=== PATIENT | male | born 1940 | race Asian ===

== ENCOUNTER 2019-10-18 15:53 | Inpatient (IN) | payer OTHER, MEDICAID ==
[~2019-10-18] VITALS: Ht 167.6 cm; Wt 80.3 kg
--- NOTE | 2019-10-18 15:55 | NUR ---
Patient to ER bed 2 to gown for evaluation. Side rails up.
--- NOTE | 2019-10-18 15:57 | NUR ---
Patient presented to ER C/O abnormal labs. patient BIB BLS from [facility] [place] for elevated BUN & Creat. Patient A&Ox2, afebrile, bed bound, skin pink & warm. Gtube to abdomen. pain 3/10, denies N/V/D.
[2019-10-18 15:59] VITALS: BP_SYST 119
--- NOTE | 2019-10-18 16:10 | NUR ---
JUAN Araiza at bedside examining patient.
[2019-10-18] MEDS ORDERED: ASPI-1077 GT (16:22)
[2019-10-18] MEDS ORDERED: ATOR10TA68 GT (16:23)
[2019-10-18] MEDS ORDERED: CAT.1 GT (16:25)
[2019-10-18] MEDS ORDERED: FER300L GT (16:36)
[2019-10-18] MEDS ORDERED: DILT90CA PO (16:36)
[2019-10-18 17:01] LABS: BASOPHILS # (AUTO) 0.1 K/uL (0.0-0.2); BASOPHILS % (AUTO) 0.7 % (0.0-2.0); EOSINOPHILS # (AUTO) 0.9 K/uL (0.0-0.4); EOSINOPHILS % (AUTO) 8.7 % (0.0-4.0); HEMATOCRIT 30.2 % (36-54); HEMOGLOBIN 10.3 g/dL (14.0-18.0); LYMPHOCYTES # (AUTO) 1.3 K/uL (1.0-5.5); LYMPHOCYTES % (AUTO) 12.2 % (20.5-51.5); MEAN CORPUSCULAR HEMOGLOBIN 32 pg (27-31); MEAN CORPUSCULAR HGB CONC 34 % (32-36); MEAN CORPUSCULAR VOLUME 92 fL (79.0-98.0); MONOCYTES # (AUTO) 0.5 K/uL (0.0-1.0); NEUTROPHILS # (AUTO) 7.8 K/uL (1.8-7.7); NEUTROPHILS % (AUTO) 73.4 % (40.0-70.0); PLATELET COUNT (AUTO) 270 K/uL (130-430); RED BLOOD CELL COUNT(AUTO) 3.27 MIL/uL (4.2-6.2); RED CELL DISTRIBUTION WIDTH 14.5 % (9.0-15.0); WHITE BLOOD COUNT (AUTO) 10.6 K/uL (4.8-10.8)
[2019-10-18 17:05] LABS: ANION GAP 10 (5-15); CALCIUM 8.7 mg/dL (8.4-11.0); CHLORIDE 97 mmol/L (98-107); CREATININE 4.21 mg/dL (0.55-1.30); GLUCOSE 244 mg/dL (70-99); POTASSIUM 5.3 mmol/L (3.5-5.1); SODIUM SERUM 130 mmol/L (136-145)
[2019-10-18 17:09] LABS: ALANINE AMINOTRANSFERASE 68 U/L (12-78); ALBUMIN 3.1 g/dL (3.4-4.8); TOTAL BILIRUBIN 0.4 mg/dL (0.0-1.0)
[2019-10-18 17:10] LABS: UREA NITROGEN, BLOOD 108 mg/dL (8-21)
[2019-10-18 17:14] LABS: BILIRUBIN,URINE NEGATIVE (NEGATIVE); CLARITY/URINE CLEAR (CLEAR); COLOR,URINE YELLOW (YELLOW); GLUCOSE,URINE 1+ (NEGATIVE); KETONES,URINE NEGATIVE (NEGATIVE); LEUKOCYTE ESTERASE ,URINE TRACE (NEGATIVE); NITRITE, URINE NEGATIVE (NEGATIVE); PROTEIN URINE 3+ (NEGATIVE); UROBILINOGEN,URINE 0.2 (0.2-1.0)
[2019-10-18 17:23] LABS: BLOOD, URINE TRACE (NEGATIVE)
[2019-10-18 17:24] LABS: BACTERIA,URINE FEW /HPF (None Seen); MUCUS,URINE None Seen /LPF (None Seen); RBC,URINE NONE SEEN /HPF (0-3)
[2019-10-18 17:30] LABS: ASPARTATE AMINOTRANSFERASE 36 U/L (10-37)
[2019-10-18] MEDS ORDERED: SODIUM POLYSTYRENE SULFONATE 15 GM/60 ML UDBTL GT ONE (17:30)
[2019-10-18] MEDS ORDERED: DEXTROSE 50% JECT 50 ML DISP.SYRIN IVP ONE (17:30)
[2019-10-18] MEDS ORDERED: INSULIN REGULAR, HUMAN 10 UNITS/0.1 ML INJ IVP ONE (17:30)
[2019-10-18] MEDS ORDERED: ONDANSETRON HCL 4 MG/2 ML VIAL IVP PRN (18:15)
[2019-10-18] MEDS ORDERED: GABA-529 GT (18:24)
[2019-10-18] MEDS ORDERED: SSNOVOLOG SUBCUT (18:24)
[2019-10-18] MEDS ORDERED: IPRA4AER INH (18:24)
[2019-10-18] MEDS ORDERED: ANT30 PO (18:24)
[2019-10-18] MEDS ORDERED: HYDR-4272 GT (18:24)
[2019-10-18] MEDS ORDERED: AMIN30LI2 GT (18:24)
[2019-10-18] MEDS ORDERED: HYDR59LO13 TP (18:24)
[2019-10-18] MEDS ORDERED: INSU100V11 SQ (18:24)
[2019-10-18] MEDS ORDERED: GLIP10TA11 GT (18:24)
[2019-10-18] MEDS ORDERED: MELA3TAB64 GT (18:24)
[2019-10-18] MEDS ORDERED: LEVE500T9 GT (18:24)
[2019-10-18] MEDS ORDERED: ESCI10TA GT (18:24)
[2019-10-18] MEDS ORDERED: NITSL SL (18:24)
[2019-10-18] MEDS ORDERED: OMEP-268 GT (18:24)
[2019-10-18] MEDS ORDERED: FINA5TAB3 GT (18:24)
--- NOTE | 2019-10-18 18:28 | NUR ---
Medication reconciliation completed with information provided by [facility]. Any prior medication reconciliation on file was reviewed and corrected.
[2019-10-18 18:29] LABS: INR 0.9 (0.80-1.20); PROTHROMBIN TIME 9.3 SECS (9.5-12.5)
[2019-10-18 18:37] LABS: PHOSPHORUS 5.4 mg/dL (2.7-4.5); THYROID STIMULATING HORMONE 1.01 uIu/mL (0.36-3.74)
--- NOTE | 2019-10-18 18:58 | NUR ---
. Patient will be admitted to care of Dr. Zamorano. Admitted to tele unit. Will go to room 132c. Belongings list completed. Complete and up to date summary report printed. SBAR report to be given at bedside with opportunity for questions.
--- NOTE | 2019-10-18 19:01 | NUR ---
Transfer to tele via ACLS protocol. Licensed nurse present. IV present no signs or symptoms of infiltration.
--- NOTE | 2019-10-18 19:10 | NUR ---
ADMISSION NOTE Received patient from ER via gurney. Patient admitted with diagnosis of RENAL FAILURE. Patient is awake, alert, oriented X 2. Patient oriented to hospital room, call light, toileting, pain management and safety-teach back done. Patient informed that EDISON will be HIS nurse and that their room number is 132A. Personal belongings checked and Belongings List documented. Call light within reach.
--- NOTE | 2019-10-18 19:14 | NUR ---
REASON FOR CONSULTATION:RENAL FAILURE WAS CONSULT CALLED?Y PERSON WHO WAS NOTIFIED:MICAH CONSULTING PHYSICIAN:REJI HAUSER GEOCHEMISTRY TEACHER SPECIALTY:NEHRJenna GEOCHEMISTRY TEACHER PHONE NUMBER:[phone] REQUESTING PHYSICIAN:CHALINO LAL
[2019-10-18 19:30] VITALS: BP_SYST 135; BP_SYST 145
--- NOTE | 2019-10-18 19:30 | NUR ---
pt received via the er-dept.pt.received from the facility;[facility].pt.presents hx;cva;lt.sided hemiparesis.pt.presents +history seizures. pt presents g-tube.pt.presents wounds;lt.lower extremity:pierre;scabs,rt.foot;2nd metatarsal;wound.sacrum scar;white tissue;old healed status. pt's primary language tagalog;pt.capable to verbalize;belgian.pt.presents bm.pt.cleaned pt.repositioned.call light/telephone placed w/in reach of the pt.
--- NOTE | 2019-10-18 20:00 | NUR ---
pt.assessed.v/s assessed;values w/in normal limits.pt.assessed for cleanliness.pt. repositioned.no c/o pain,nausea. pt.requested water. i have provide the water.g-tube intact patent i have flushed the g-tube to remain clamped.
[2019-10-18] MEDS ORDERED: MELATONIN 3 MG TABLET GT PRN (20:15)
[2019-10-18] MEDS ORDERED: NITROGLYCERIN 0.4 MG TAB.SUBL SL SCH (20:15)
[2019-10-18] MEDS: INSULIN GLARGINE 100 UNITS/ML 10 ML VIAL SUBCUT SCH (21:00)
[2019-10-18] MEDS ORDERED: NON-FORMULARY MEDICATION (Amino Acids/Protein Hydrolys (Pro-Stat Liquid) 30 ML) GT SCH (21:00)
--- NOTE | 2019-10-18 22:00 | NUR ---
pt.assessed.pt.presents calm affect.pt.assessed for cleanliness.pt.presents bm.pt.cleaned.i have initiated the iv fluids.ns via peripheral line. pt/.had c/o abdomen pain i have administered norco;5/325mg via the g-tube.i have administered mylanta 30ml via the g-tube. call light/telephone placed w/in reach of the pt.
[2019-10-18] MEDS: levETIRAcetam 500 MG TABLET GT SCH (22:01)
[2019-10-18] MEDS: GABAPENTIN 100 MG CAPSULE GT SCH (22:01)
[2019-10-18] MEDS: NACL 0.9% 1,000 ML IV SCH (22:13)
--- NOTE | 2019-10-19 | NUR ---
pt.assessed.pt.presents v/s values w/in normal limits.no c/o pain,nausea.iv fluids infusing.pt.assessed for cleanliness.pt.presents bm. pt.repositioned/call light/telephone placed w/in reach of the pt.
[2019-10-19] MEDS: MAG-AL HYDROX/SIMETH 30 ML UDC PO PRN (00:01)
[2019-10-19] MEDS: HYDROcodone/ACETAMIN 5-325 MG TAB (NORCO/ VICODIN) PO PRN (00:02)
[2019-10-19 00:20] VITALS: BP_SYST 154
--- NOTE | 2019-10-19 02:00 | NUR ---
pt.assessed pt.assessed for cleanliness.pt.repositioned.iv access intact patent iv fluids infusing.i have attended to the wound care;i have taken the photos of the wounds.no c/o pain,nausea.general status stable.respiratory status stable.call light/telephone placed w/in reach of the pt.
--- NOTE | 2019-10-19 04:00 | NUR ---
pt.assessed.pt.presents quiescent affect calm somnolent.pt.assessed for cleanliness.pt.repositioned.iv fluids infusing. no c/o pain,nausea. call light/telephone placed w/in reach of the pt. Addendum: 10/19/19 at 0634 by Joe Hoffmann RN pt.presents bm.
[2019-10-19] MEDS: INSULIN LISPRO SLIDING SCALE 100 UNITS/ML VIAL (humaLOG) SUBCUT PRN ×3 (05:34→18:08)
--- NOTE | 2019-10-19 06:29 | NUR ---
pt.assessed.pt.presents quiescent affect;calm,somnolent.pt.repositioned.i have assessed the blood glucose value;198mg/dl. i have administered humlog;2-units.call light/telephone placed w/in reach of the pt.no c/o pain,nausea.
[2019-10-19 07:22] LABS: BASOPHILS % (AUTO) 0.3 % (0.0-2.0); EOSINOPHILS # (AUTO) 0.1 K/uL (0.0-0.4); HEMATOCRIT 32.8 % (36-54); LYMPHOCYTES # (AUTO) 0.6 K/uL (1.0-5.5); LYMPHOCYTES % (AUTO) 5.6 % (20.5-51.5); MEAN CORPUSCULAR HEMOGLOBIN 31 pg (27-31); MEAN CORPUSCULAR HGB CONC 34 % (32-36); MEAN CORPUSCULAR VOLUME 93 fL (79.0-98.0); MONOCYTES # (AUTO) 0.2 K/uL (0.0-1.0); MONOCYTES % (AUTO) 1.4 % (1.7-9.3); NEUTROPHILS # (AUTO) 10.3 K/uL (1.8-7.7); NEUTROPHILS % (AUTO) 91.7 % (40.0-70.0); PLATELET COUNT (AUTO) 271 K/uL (130-430); RED BLOOD CELL COUNT(AUTO) 3.54 MIL/uL (4.2-6.2); RED CELL DISTRIBUTION WIDTH 14.5 % (9.0-15.0); WHITE BLOOD COUNT (AUTO) 11.2 K/uL (4.8-10.8)
[2019-10-19 07:23] LABS: ANION GAP 13 (5-15); CALCIUM 8.9 mg/dL (8.4-11.0); CHLORIDE 99 mmol/L (98-107); CHOLESTEROL 162 mg/dL (<200); CREATININE 4.06 mg/dL (0.55-1.30); GLUCOSE 202 mg/dL (70-99); HDL CHOLESTEROL 34 mg/dL (>45); LDL CHOLESTEROL 88 mg/dL (<100); PHOSPHORUS 5.6 mg/dL (2.7-4.5); POTASSIUM 3.7 mmol/L (3.5-5.1); SODIUM SERUM 134 mmol/L (136-145); TRIGLYCERIDES 174 mg/dL (30-150)
[2019-10-19 07:30] LABS: UREA NITROGEN, BLOOD 105 mg/dL (8-21)
[2019-10-19 09:01] VITALS: BP_SYST 132
--- NOTE | 2019-10-19 10:45 | NUR ---
Nutrition Update Parth Scale 11 noted. Pt admitted for renal failure. [facility]60 gm BMI: 25.5 kg/m2 RD to follow per nutrition care standards.
[2019-10-19 12:00] VITALS: BP_SYST 115
--- NOTE | 2019-10-19 12:15 | NUR ---
CONSULT NEPHROLOGY RENAL FAILURE DR AVITIA [phone] S/W ABBE ODWNING
[2019-10-19] MEDS: GABAPENTIN 100 MG CAPSULE GT SCH ×2 (12:20→22:03)
[2019-10-19] MEDS: ATORVASTATIN 10 MG TABLET GT SCH (12:20)
[2019-10-19] MEDS: FINASTERIDE 5 MG TABLET (PROSCAR) GT SCH (12:20)
[2019-10-19] MEDS: levETIRAcetam 500 MG TABLET GT SCH ×2 (12:20→22:08)
[2019-10-19] MEDS: DOCUSATE SODIUM 100 MG CAPSULE PO SCH (12:20)
[2019-10-19] MEDS: CITALOPRAM HYDROBROMIDE 20 MG TABLET PO SCH (12:21)
[2019-10-19] MEDS: PANTOPRAZOLE SODIUM 40 MG TAB PO SCH (12:21)
[2019-10-19] MEDS: ASPIRIN 81 MG TAB.CHEW GT SCH (12:21)
[2019-10-19] MEDS: FERROUS SULFATE 300 MG/5 ML UDC GT SCH (12:21)
[2019-10-19] MEDS: DILTIAZEM HCL 90 MG TABLET PO SCH ×2 (12:36→22:03)
[2019-10-19] MEDS: NACL 0.9% 1,000 ML IV SCH (12:39)
[2019-10-19 16:52] VITALS: BP_SYST 103
--- NOTE | 2019-10-19 19:00 | NUR ---
Patient resting in bed at this time. Even, unlabored respirations. Patient intravenous catheter infusing normal saline in left hand 24 gauge well. Positioning for comfort to left side. Patient endorsement to night team registered nurse. Hilton Burdick RN
[2019-10-19] MEDS: INSULIN GLARGINE 100 UNITS/ML 10 ML VIAL SUBCUT SCH (22:20)
[2019-10-19] MEDS: cefTRIAXone 1 GM in D5W 50 ML IV SCH (22:21)
[2019-10-19] MEDS ORDERED: cefTRIAXone 1 GM VIAL ONE (22:28)
[2019-10-20] VITALS (14 sets, daily range): BP systolic 107–145
[2019-10-20] MEDS: NACL 0.9% 1,000 ML IV SCH ×2 (04:13→14:33)
[2019-10-20] MEDS: HYDROcodone/ACETAMIN 5-325 MG TAB (NORCO/ VICODIN) PO PRN ×3 (04:32→19:46)
--- NOTE | 2019-10-20 07:00 | NUR ---
Patient coughs frequently concerned about potential of aspirating. Temp elevated at beginning of shift 99.0 blanket removed with temp normal later. Turned Q 2 hours incontinent urine with frequent bed changes. Collection of urine via straight cath for numerous urine tests. Complained of pain once though out shift given [place] 5 325 with good results. Patient requesting coffee holding back on liquids due to potential aspiration. Taking meds with pudding
[2019-10-20 07:02] LABS: BASOPHILS # (AUTO) 0.1 K/uL (0.0-0.2); BASOPHILS % (AUTO) 0.6 % (0.0-2.0); EOSINOPHILS # (AUTO) 0.4 K/uL (0.0-0.4); EOSINOPHILS % (AUTO) 3.6 % (0.0-4.0); HEMATOCRIT 28.1 % (36-54); HEMOGLOBIN 9.3 g/dL (14.0-18.0); LYMPHOCYTES # (AUTO) 1.6 K/uL (1.0-5.5); LYMPHOCYTES % (AUTO) 13.3 % (20.5-51.5); MEAN CORPUSCULAR HEMOGLOBIN 31 pg (27-31); MEAN CORPUSCULAR HGB CONC 33 % (32-36); MEAN CORPUSCULAR VOLUME 93 fL (79.0-98.0); MONOCYTES # (AUTO) 0.6 K/uL (0.0-1.0); MONOCYTES % (AUTO) 5.3 % (1.7-9.3); NEUTROPHILS # (AUTO) 9.3 K/uL (1.8-7.7); NEUTROPHILS % (AUTO) 77.2 % (40.0-70.0); PLATELET COUNT (AUTO) 214 K/uL (130-430); RED BLOOD CELL COUNT(AUTO) 3.03 MIL/uL (4.2-6.2); RED CELL DISTRIBUTION WIDTH 14.6 % (9.0-15.0); WHITE BLOOD COUNT (AUTO) 12.1 K/uL (4.8-10.8)
[2019-10-20 07:15] LABS: CHLORIDE 107 mmol/L (98-107); CREATININE 4.24 mg/dL (0.55-1.30); GLUCOSE 136 mg/dL (70-99); PHOSPHORUS 5.9 mg/dL (2.7-4.5)
[2019-10-20 07:25] LABS: ANION GAP 12 (5-15); SODIUM SERUM 143 mmol/L (136-145)
[2019-10-20 07:33] LABS: POTASSIUM 2.9 mmol/L (3.5-5.1); UREA NITROGEN, BLOOD 102 mg/dL (8-21)
--- NOTE | 2019-10-20 07:55 | NUR ---
INITIAL NOTE RECEIVED PT IN BED, NO S/S OF DISTRESS OR SOB NOTED,PT HAS NO C/O PAIN AT THIS TIME, PT IN STABLE CONDITION, PT AAOX2, VERBAL, CONFUSED, PROVIDED PT WITH REALITY ORIENTATION, IV CATHETERS PATENT, ONE RUNNING IV FLUIDS ORDERED AND OTHER SALINE LOCK, NO SIGNS OF INFECTION OR INFILTRATION NOTED. BED AT LOWEST POSITION, CALL LIGHT WITHIN REACH, WILL CONTINUE TO MONITOR PT FOR ANY CHANGES, FALL AND SAFETY PRECAUTIONS IN PLACE. PT HAS A G TUBE CLAMPED, PLACEMENT VERIFIED, NO RESIDUAL. PT HAS BILATERAL SCD'S IN PLACE. PT ON AIR MATTRESS. PER REPORT PT COUGHING WHILE EATING, PT PLACED ON NPO, WILL CALL MD AND NOTIFY.
--- NOTE | 2019-10-20 07:58 | NUR ---
MD GABRIEL [place] KIDNEY SPECIALIST CALLED AT [phone]MOGHADAM MARIEL SKY CAP.
--- NOTE | 2019-10-20 08:50 | NUR ---
MD CALL SPOKE WITH DR CARRILLO MADE AWARE OF PT COUGHING WHILE EATING PER REPORT, PT NPO AND TO USE G TUBE FOR MEDS AND HAVE SWALLOW EVAL DONE.
[2019-10-20] MEDS: FERROUS SULFATE 300 MG/5 ML UDC GT SCH (09:08)
[2019-10-20] MEDS: ATORVASTATIN 10 MG TABLET GT SCH (09:09)
[2019-10-20] MEDS: CITALOPRAM HYDROBROMIDE 20 MG TABLET PO SCH (09:09)
[2019-10-20] MEDS: PANTOPRAZOLE SODIUM 40 MG TAB PO SCH (09:09)
[2019-10-20] MEDS: DOCUSATE SODIUM 100 MG CAPSULE PO SCH (09:09)
[2019-10-20] MEDS: GABAPENTIN 100 MG CAPSULE GT SCH ×2 (09:09→21:03)
[2019-10-20] MEDS: levETIRAcetam 500 MG TABLET GT SCH ×2 (09:09→21:03)
[2019-10-20] MEDS: ASPIRIN 81 MG TAB.CHEW GT SCH (09:09)
[2019-10-20] MEDS: FINASTERIDE 5 MG TABLET (PROSCAR) GT SCH (09:10)
[2019-10-20] MEDS: DILTIAZEM HCL 90 MG TABLET PO SCH ×2 (09:10→21:07)
--- NOTE | 2019-10-20 09:10 | NUR ---
[employer]AM [employer]ANT RECORDS CLERK PAGED PAGED AT [phone] SPOKE WITH MARIEL.
[2019-10-20] MEDS: TRIAMCINOLONE ACETONIDE 0.1% 15 GM OINT..GM. TP SCH ×2 (09:11→21:28)
[2019-10-20] MEDS ORDERED: POTASSIUM CHLORIDE 20 MEQ/PKT PACKET GT ONE (09:45)
--- NOTE | 2019-10-20 09:55 | NUR ---
REASON FOR CONSULTATION:WBC'S TRENDING UP WAS CONSULT CALLED?Y PERSON WHO WAS NOTIFIED:JESSE CONSULTING PHYSICIAN:JEREMIAH GASCA ( CLEANING PORTER) YEAST CULTURE OPERATOR SPECIALTY:ID YEAST CULTURE OPERATOR PHONE NUMBER:[phone] REQUESTING PHYSICIAN:CHALINO LAL
[2019-10-20] MEDS ORDERED: POTASSIUM CHLORIDE 40 MEQ in NS 250 ML IV ONE (10:00)
--- NOTE | 2019-10-20 10:10 | NUR ---
ROUNDS PT IN BED, NO S/S OF DISTRESS OR SOB NOTED, PT HAS NO C/O PAIN AT THIS TIME, PT IN STABLE CONDITION, PT RESTING COMFORTABLY, WILL CONTINUE TO MONITOR PT FOR ANY CHANGES. PATIENT'S HEART RATE IS 55, PT ASYMPTOMATIC, WILL CONTINUE TO MONITOR PT FOR ANY CHANGES.
[2019-10-20] MEDS: DIPHENHYDRAMINE INJ 50 MG/ML VIAL IVP PRN (10:23)
--- NOTE | 2019-10-20 10:30 | NUR ---
MD CALL SPOKE WITH DR CARRILLO ABOUT PATIENT'S HEART RATE OF 41, ORDERED STAT EKG AND CONSULT WITH DR CHONG, PT ASYMPTOMATIC. WILL CONTINUE TO MONITOR PT FOR ANY CHANGES.
--- NOTE | 2019-10-20 11:00 | NUR ---
CARDIAC CONSULT CALLED REASON FOR CONSULTATION:BRADYCARDIA WAS CONSULT CALLED?Y PERSON WHO WAS NOTIFIED:CANDY BARNHART CONSULTING PHYSICIAN:CANDY BARNHART GENERAL PURCHASING AGENT SPECIALTY:CARDIO GENERAL PURCHASING AGENT PHONE NUMBER:[phone] REQUESTING PHYSICIAN:CHALINO LAL
[2019-10-20] MEDS ORDERED: ATROPINE SULFATE 1 MG/10 ML SYRINGE IVP PRN (11:30)
--- NOTE | 2019-10-20 11:39 | NUR ---
ATROPINE ADMINISTERED 1MG OF ATROPINE IVP ORDERED PER DR CHONG, MONITOR ON AND STRIP PRINTED IN CHART. PT ASYMPTOMATIC.
--- NOTE | 2019-10-20 11:40 | NUR ---
ICU TRANSFERRED PT TO ICU, ALL BELONGINGS WENT WITH PT, FAMILY MADE AWARE AND DR CARRILLO MADE AWARE, REPORT GIVEN. Addendum: 10/20/19 at 1219 by Sandee Ricks RN MADE ELAINE LINDQUIST AWARE OF ICU TRANSFER
[2019-10-20] MEDS ORDERED: ATROPINE SULFATE 1 MG/10 ML SYRINGE IVP ONE (11:45)
--- NOTE | 2019-10-20 12:06 | NUR ---
Dr Galeas in to see pt. Orders left.
--- NOTE | 2019-10-20 12:20 | NUR ---
Opening Note Patient report received from endorsing RN via SBAR communication.
[2019-10-20] MEDS: DOPamine PREMIX 250 ML IV PRN (12:24)
--- NOTE | 2019-10-20 15:09 | NUR ---
Dietitian Recommendations *Initiate nutrition support when/if medically feasible *Consider Nepro at 35ml/hr *This will provide 1512kcal and 68gPro which meets 84%lower end of kcal and 117%lower end of protein est. nutrition needs. *Free water flush per MD Please see Nutrition Assessment for further details. LT, RD
--- NOTE | 2019-10-20 15:30 | NUR ---
Round Dr. De La Garza at bedside assessing patient, physician entered orders
[2019-10-20] MEDS ORDERED: SEVELAMER CARBONATE 800 MG TABLET PO ONE (16:00)
[2019-10-20] MEDS: CIPROFLOXACIN HCL 0.3% EYE DRP 2.5 ML DROPS LEFT EYE SCH ×3 (16:06→22:43)
[2019-10-20] MEDS: INSULIN LISPRO SLIDING SCALE 100 UNITS/ML VIAL (humaLOG) SUBCUT PRN (16:12)
--- NOTE | 2019-10-20 17:00 | NUR ---
Nursing Note Patient provided oral care, repositioned in bed, linens changed. Patient tolerated well
[2019-10-20] MEDS: cefTRIAXone 1 GM in D5W 50 ML IV SCH (18:36)
--- NOTE | 2019-10-20 19:31 | NUR ---
Closing Note Patient report given to nightshift RN via SBAR communication
--- NOTE | 2019-10-20 19:35 | NUR ---
Opening Note Patient report received from endorsing RN via SBAR communication.
[2019-10-20] MEDS: INSULIN GLARGINE 100 UNITS/ML 10 ML VIAL SUBCUT SCH (21:12)
[2019-10-20] MEDS ORDERED: DILTIAZEM HCL 30 MG TABLET ONE (21:22)
[2019-10-20] MEDS ORDERED: DILTIAZEM HCL 60 MG TABLET ONE (21:22)
[2019-10-21] VITALS (24 sets, daily range): BP systolic 113–156
--- NOTE | 2019-10-21 01:40 | NUR ---
ATROPINE ADMINISTERED 0.5MG OF ATROPINE IVP REQUIRED PER PRN GUIDELINES. THE HEART RATE WAS <45. HEART RATE IS NOW 84. WILL CONTINUE TO MONITOR.
[2019-10-21] MEDS: CIPROFLOXACIN HCL 0.3% EYE DRP 2.5 ML DROPS LEFT EYE SCH ×6 (03:36→22:55)
[2019-10-21 05:40] LABS: BASOPHILS # (AUTO) 0.1 K/uL (0.0-0.2); BASOPHILS % (AUTO) 0.5 % (0.0-2.0); EOSINOPHILS # (AUTO) 0.5 K/uL (0.0-0.4); EOSINOPHILS % (AUTO) 3.4 % (0.0-4.0); HEMATOCRIT 30.1 % (36-54); HEMOGLOBIN 9.9 g/dL (14.0-18.0); LYMPHOCYTES # (AUTO) 1.7 K/uL (1.0-5.5); LYMPHOCYTES % (AUTO) 10.8 % (20.5-51.5); MEAN CORPUSCULAR HEMOGLOBIN 31 pg (27-31); MEAN CORPUSCULAR HGB CONC 33 % (32-36); MEAN CORPUSCULAR VOLUME 93 fL (79.0-98.0); MONOCYTES # (AUTO) 0.8 K/uL (0.0-1.0); NEUTROPHILS # (AUTO) 12.2 K/uL (1.8-7.7); NEUTROPHILS % (AUTO) 80.3 % (40.0-70.0); PLATELET COUNT (AUTO) 229 K/uL (130-430); RED BLOOD CELL COUNT(AUTO) 3.22 MIL/uL (4.2-6.2); RED CELL DISTRIBUTION WIDTH 14.9 % (9.0-15.0); WHITE BLOOD COUNT (AUTO) 15.3 K/uL (4.8-10.8)
[2019-10-21 06:01] LABS: ANION GAP 11 (5-15); CALCIUM 8.5 mg/dL (8.4-11.0); CHLORIDE 110 mmol/L (98-107); CREATININE 4.24 mg/dL (0.55-1.30); GLUCOSE 171 mg/dL (70-99); PHOSPHORUS 4.9 mg/dL (2.7-4.5); POTASSIUM 4.4 mmol/L (3.5-5.1); SODIUM SERUM 144 mmol/L (136-145); UREA NITROGEN, BLOOD 92 mg/dL (8-21)
[2019-10-21] MEDS: NACL 0.9% 1,000 ML IV SCH ×2 (06:25→13:01)
--- NOTE | 2019-10-21 07:25 | NUR ---
Opening Note Received bedside report from endorsing RN for continuation of care. Received patient awake and resting in bed, denies any pain or SOB. No signs or symptoms of acute distress noted. Bed locked in lowest position, bed alarm on, and call light within reach. Fall and safety precautions in place.
[2019-10-21] MEDS: GABAPENTIN 100 MG CAPSULE GT SCH ×2 (09:06→21:22)
[2019-10-21] MEDS: DOCUSATE SODIUM 100 MG CAPSULE PO SCH (09:06)
[2019-10-21] MEDS: SEVELAMER CARBONATE 800 MG TABLET PO SCH ×3 (09:06→17:54)
[2019-10-21] MEDS: FERROUS SULFATE 300 MG/5 ML UDC GT SCH (09:07)
[2019-10-21] MEDS: ASPIRIN 81 MG TAB.CHEW GT SCH (09:07)
[2019-10-21] MEDS: CITALOPRAM HYDROBROMIDE 20 MG TABLET PO SCH (09:07)
[2019-10-21] MEDS: ATORVASTATIN 10 MG TABLET GT SCH (09:07)
[2019-10-21] MEDS: PANTOPRAZOLE SODIUM 40 MG TAB PO SCH (09:07)
[2019-10-21] MEDS: levETIRAcetam 500 MG TABLET GT SCH ×2 (09:07→21:22)
[2019-10-21] MEDS: FINASTERIDE 5 MG TABLET (PROSCAR) GT SCH (09:08)
[2019-10-21] MEDS: TRIAMCINOLONE ACETONIDE 0.1% 15 GM OINT..GM. TP SCH ×2 (09:09→21:20)
[2019-10-21] MEDS: DOPamine PREMIX 250 ML IV PRN (09:10)
--- NOTE | 2019-10-21 09:35 | NUR ---
Dr. Willingham at bedside examining patient. New orders received.
[2019-10-21] MEDS: DIPHENHYDRAMINE INJ 50 MG/ML VIAL IVP PRN (11:05)
[2019-10-21] MEDS: HYDROcodone/ACETAMIN 5-325 MG TAB (NORCO/ VICODIN) PO PRN ×2 (11:05→17:55)
--- NOTE | 2019-10-21 11:06 | NUR ---
DC PLANNING VISITED PATIENT AT ICU BS, NO FAMILY. CALLED TEL # FROM FACESHEET, LEFT A VM TO BROTHER MEKHI [phone]. WILL FOLLOW UP WITH DCP ONCE REACHING FAMILY. BRIANNA RN CM
[2019-10-21] MEDS: INSULIN LISPRO SLIDING SCALE 100 UNITS/ML VIAL (humaLOG) SUBCUT PRN ×2 (11:13→17:59)
--- NOTE | 2019-10-21 12:08 | NUR ---
Dr. Whitney at bedside examining patient. New orders received.
--- NOTE | 2019-10-21 12:20 | NUR ---
Wound Evaluation: Patient received in a [place] bed with an IsoFlex AKI mattress with low air-loss therapy initiated, awake, alert, oriented x 1. Patient is unable to turn in bed independently. Parth score is a 12. Past Medical History: Diabetes Mellitus, Hypertension, CVA with Left Hemiplegia, Hypercholesterolemia, Seizures, Colostomy, BPH, Depression, Atrial Fibrillation, CKD, Dysphagia, G-tube, GERD, Peripheral Vascular Disease, HLD, Peripheral Neuropathy, unknown abdominal surgery. Recent labs: CBC 15.3, RBC 3.22, hemoglobin 9.9, hematocrit 30.1, ESR 95, chloride 110, BUN 92, creatinine 4.24, glucose 171, POC glucose 161, phosphorus 4.9, magnesium 2.2, albumin 3.1, PT 9.3. Microbiology: MRSA screen results negative. Urine culture results in progress. Intrinsic factors that delay wound healing: Diabetes Mellitus, CVA, Hypoalbuminemia, Peripheral Vascular Disease, CKD, Peripheral Neuropathy. Extrinsic factors that delay wound healing: decreased mobility. Wound Assessment: 1. Buttocks area: Scar tissue, present on admission. 2. Sacral-Coccygeal area: Scar tissue, present on admission. Recommend: Cleanse involved areas with mild soap and water. Pat dry. Apply moisture barrier cream to involved areas. Cover involved areas with Sacral foam dressing. Perform site care daily, and as needed for dressing soiling or dislodgment. 3. Right Posterior Proximal Thigh: Scar tissue, present on admission. Recommend: Cleanse involved area with mild soap and water. Pat dry. Apply moisture barrier cream to involved area. Perform site care qid, and as needed for soiling. 4. Right Second Toe: Acute on chronic wound, present on admission. Wound bed has 100% pink tissue. No odor, no drainage. Periwound intact. Wound measures 0.6 cm x 0.5 cm. Recommend: No dressing needed. [place] toe with Betadine daily. Continue to monitor site q shift for worsening condition. 5. Left Heel: Blanchable red erythema, present on admission. 6. Right Heel: Blanchable red erythema, present on admission. Recommend: Elevate, offload and float bilateral heels with one pillow lengthwise under each extremity at all times. Also recommend: Reposition patient side to side only every two hours with pillow support. Off-load pressure areas with pillows for pressure re-distribution. Elevate, offload and float bilateral heels with one pillow lengthwise under each extremity at all times. Perform skin care and monitor skin integrity q shift. Use moisture barrier cream on buttocks, and other moisture susceptible areas qid and as needed for soiling. Maintain patient on a low air-loss mattress. Addendum: 10/21/19 at 1520 by Martell Mcgill RN Error. Site 4 should say: 4. Right Second Toe: Chronic ischemic wound, present on admission. Wound bed has 100% yellow eschar. No odor, no drainage. Periwound intact. Dry, stable. Wound measures 0.9 cm x 0.5 cm. Recommend: No dressing needed. [place] toe with Betadine daily. Continue to monitor site q shift for worsening condition.
--- NOTE | 2019-10-21 12:35 | NUR ---
Dr. Galeas at bedside examining patient. New orders received.
--- NOTE | 2019-10-21 13:07 | NUR ---
Nutrition F/U RD reviewed pt's current EMR including diet Hx, physician notes, nursing notes, pertinent labs/meds/procedures, care trends and care activity. Current Nutrition Support: Glucerna 1.5 at 50ml/hr, FWF 100ml Q4h via GT x 1 day Subjective information: Pt seen in bed, EN infusing at 40ml/hr at time of RD visit. Last BM 10/20/2019. Abd is soft and nondistended per EMR. RN reported tolerating EN support, no residual this morning. RN also reported that MD's are discussing plans for HD, and placement of route for HD. RN also denied any pressure injury, Parth score is 12. Current EN regimen at 40ml provides: 1440 kcal, 79gm protein and 1864ml free water daily. Labs revealed altered renal labs and pt may benefit from Nepro formula for EN support. Labs: 10/21/19 Na 144 WNL, K 4.4 WNL, BG 171H, POC BG 136H, BUN 92 H, CRE 4.24H Problem/Etiology/Signs/Symptoms Altered nutrition related lab values related to renal dysfunction as evidenced by K: 2.9L, BUN: 102H, Cr: 4.24H, Phos: 5.9H, M.2H (*ongoing) Altered nutrition related labs r/t endocrine dysfunction AEB elevated BG and POC BG lab values (Hx of DM). (*new 10/21/2019) Expected Outcomes/Goals Monitor tolerance to enteral regimen and intake w/ goal of pt meeting at least 75% of estimated nutritional needs, labs trending WNL, normal GI function, and skin integrity/wt maintenance Dietitian Recommendations * Recommend: Nepro at 35ml/hr (goal rate), [place] BID, FWF 100ml Q6H via GT. Provide 1672 kcal, 73gm Protein and 1010ml free water daily. Meets 93% of lower end of estimated calorie needs and 85% of upper end of estimated protein needs. Follow Up High Risk: F/U in 2-3days
--- NOTE | 2019-10-21 13:20 | NUR ---
Dietitian Recommendations * Recommend: Nepro at 35ml/hr (goal rate), [place] BID, FWF 100ml Q6H via GT. Provide 1672 kcal, 73gm Protein and 1010ml free water daily. Meets 93% of lower end of estimated calorie needs and 85% of upper end of estimated protein needs. Please see Nutrition F/U note for details. CHCF, RD
[2019-10-21] MEDS ORDERED: COMMUNICATION ORDER XX ONE (13:45)
--- NOTE | 2019-10-21 13:50 | NUR ---
S.T. SWALLOW EVAL SWALLOW EVAL COMPLETED. PT PRESENTS W/ GENERALLY FUNCTIONAL OROPHARYNGEAL SWALLOW FOR PUREE AND THIN/THICK LIQUIDS. NO S/S OF ASPIRATION. REFUSED CHOPPED PRESENTATION. QUESTIONABLE INTEREST FOR P.O. REC: PUREE DIET. THIN LIQUIDS OK. MONITOR P.O. INTAKE. ADJUST GT FEEDING ACCORDING TO P.O. INTAKE. NURSE CEDILLO NOTIFIED.
[2019-10-21] MEDS ORDERED: DOPamine PREMIX 250 ML IV PRN (14:30)
--- NOTE | 2019-10-21 15:11 | NUR ---
DC PLANNING CHART REVIEWED, SPOKE TO PATIENT'S BROTHER- JEANA AG/ # [phone], PATIENT WAS SENT FROM [facility] [place], CURRENTLY STILL ON G TUBE FEEDING, CONFUSED. DCP- PER BROTHER- EJANA AG MD, [facility] [place] ONCE PATIENT IS STABLE TO BE DISCHARGED FROM [facility]. JCC RN CM
--- NOTE | 2019-10-21 15:18 | NUR ---
Midline Insertion Midline insertion being done at bedside by PICC Line NIEVES Montiel.
[2019-10-21] MEDS: metroNIDAZOLE 250 mg/NS 50 ML IV SCH ×2 (15:48→21:21)
[2019-10-21] MEDS: cefTRIAXone 1 GM in D5W 50 ML IV SCH (17:53)
--- NOTE | 2019-10-21 18:20 | NUR ---
Dr. De La Garza at bedside examining patient. New orders received.
--- NOTE | 2019-10-21 18:21 | NUR ---
CONSULT SURGERY CONSULTING MD: DR. PUENTES DIALED: [phone] SPOKE TO: ORDERED BY: DR. HORTA
--- NOTE | 2019-10-21 19:05 | NUR ---
Closing Note Patient is awake and resting in bed, denies any pain or SOB. No signs or symptoms of acute distress noted. Endorsed bedside report to oncoming RN using SBAR approach for continuation of care.
--- NOTE | 2019-10-21 19:30 | NUR ---
ASSUMPTION OF CARE Pt in bed awake and alert with VSS tolerating 2L O2 via nasal cannula. Dopamine drip at 6mcg/kg/min. Afib in the monitor. No acute distress noted. QIAN midline in placed with good blood return and patent. Gtube in placed tolerating tubefeeding. Safety precaution observed, call light within reach. Will continue to monitor.
[2019-10-21] MEDS: INSULIN GLARGINE 100 UNITS/ML 10 ML VIAL SUBCUT SCH (21:24)
[2019-10-22] VITALS (23 sets, daily range): BP systolic 123–166
--- NOTE | 2019-10-22 | NUR ---
Pt in bed, no acute distress noted. Will continue to monitor Pt.
[2019-10-22] MEDS: CIPROFLOXACIN HCL 0.3% EYE DRP 2.5 ML DROPS LEFT EYE SCH ×6 (03:17→21:56)
[2019-10-22] MEDS: NACL 0.9% 1,000 ML IV SCH ×3 (03:18→23:20)
--- NOTE | 2019-10-22 04:00 | NUR ---
Pt in bed, no acute distress noted. Will continue to monitor Pt.
[2019-10-22] MEDS: DIPHENHYDRAMINE INJ 50 MG/ML VIAL IVP PRN (04:19)
[2019-10-22 05:52] LABS: BASOPHILS % (AUTO) 0.3 % (0.0-2.0); EOSINOPHILS # (AUTO) 0.7 K/uL (0.0-0.4); EOSINOPHILS % (AUTO) 6.2 % (0.0-4.0); HEMATOCRIT 31.1 % (36-54); HEMOGLOBIN 10.2 g/dL (14.0-18.0); LYMPHOCYTES # (AUTO) 1.2 K/uL (1.0-5.5); MEAN CORPUSCULAR HEMOGLOBIN 31 pg (27-31); MEAN CORPUSCULAR HGB CONC 33 % (32-36); MEAN CORPUSCULAR VOLUME 93 fL (79.0-98.0); MONOCYTES # (AUTO) 0.7 K/uL (0.0-1.0); MONOCYTES % (AUTO) 5.7 % (1.7-9.3); NEUTROPHILS # (AUTO) 9.1 K/uL (1.8-7.7); NEUTROPHILS % (AUTO) 77.8 % (40.0-70.0); PLATELET COUNT (AUTO) 228 K/uL (130-430); RED BLOOD CELL COUNT(AUTO) 3.34 MIL/uL (4.2-6.2); RED CELL DISTRIBUTION WIDTH 14.8 % (9.0-15.0); WHITE BLOOD COUNT (AUTO) 11.7 K/uL (4.8-10.8)
[2019-10-22 06:07] LABS: ALANINE AMINOTRANSFERASE 50 U/L (12-78); ALBUMIN 2.3 g/dL (3.4-4.8); ANION GAP 11 (5-15); ASPARTATE AMINOTRANSFERASE 26 U/L (10-37); CALCIUM 8.1 mg/dL (8.4-11.0); CHLORIDE 110 mmol/L (98-107); CREATININE 3.59 mg/dL (0.55-1.30); GLUCOSE 117 mg/dL (70-99); POTASSIUM 4.4 mmol/L (3.5-5.1); SODIUM SERUM 144 mmol/L (136-145); TOTAL BILIRUBIN 0.2 mg/dL (0.0-1.0); UREA NITROGEN, BLOOD 80 mg/dL (8-21)
[2019-10-22] MEDS: metroNIDAZOLE 250 mg/NS 50 ML IV SCH ×3 (06:07→22:00)
--- NOTE | 2019-10-22 06:55 | NUR ---
Report given to oncoming RN. IV lines and skin checked.
[2019-10-22] MEDS ORDERED: HEPARIN SODIUM,PORCINE 5000 UNITS/ML VIAL ONE (07:38)
[2019-10-22] MEDS ORDERED: LORazepam 2 MG/ML VIAL ONE (07:53)
--- NOTE | 2019-10-22 08:30 | NUR ---
left ij damaris cath place by dr Frey.
--- NOTE | 2019-10-22 09:00 | NUR ---
dopamine drip titrated down to [address] last.
[2019-10-22] MEDS: CITALOPRAM HYDROBROMIDE 20 MG TABLET PO SCH (09:16)
[2019-10-22] MEDS: PANTOPRAZOLE SODIUM 40 MG TAB PO SCH (09:16)
[2019-10-22] MEDS: levETIRAcetam 500 MG TABLET GT SCH ×2 (09:16→21:55)
[2019-10-22] MEDS: SEVELAMER CARBONATE 800 MG TABLET PO SCH ×3 (09:16→17:54)
[2019-10-22] MEDS: GABAPENTIN 100 MG CAPSULE GT SCH ×2 (09:16→21:55)
[2019-10-22] MEDS: DOCUSATE SODIUM 100 MG CAPSULE PO SCH (09:16)
[2019-10-22] MEDS: FERROUS SULFATE 300 MG/5 ML UDC GT SCH (09:16)
[2019-10-22] MEDS: ATORVASTATIN 10 MG TABLET GT SCH (09:16)
[2019-10-22] MEDS: TRIAMCINOLONE ACETONIDE 0.1% 15 GM OINT..GM. TP SCH ×2 (09:17→21:59)
[2019-10-22] MEDS: FINASTERIDE 5 MG TABLET (PROSCAR) GT SCH (09:17)
[2019-10-22] MEDS: ASPIRIN 81 MG TAB.CHEW GT SCH (09:19)
[2019-10-22] MEDS: MAG-AL HYDROX/SIMETH 30 ML UDC PO PRN (11:58)
--- NOTE | 2019-10-22 13:12 | NUR ---
SS NOTES: ART INSTRUCTOR met with son Uche Crews (p: [phone]) who wanted to inquire on formulating an Advanced Directive. ART INSTRUCTOR spoke with patient, who appears to be slightly confused and son Uche concurred and stated it might be due to the medication. ART INSTRUCTOR provided family with POLST and Advanced Directive with mobile notary and explained purpose and how it is formulated. Per Ray, he will read through it and discuss with patient and brothers regarding the forms. SS will remain available for support and when needed.
--- NOTE | 2019-10-22 13:14 | NUR ---
DC PLANNING PATIENT IS ON DOPAMIN IV DRIP TITRATE, O2 NC, TODAY BUN 80, CR 3.59, PATIENT WAS SENT FROM [facility]. CONTINUE FOLLOW UP WITH DCP NEEDED. NO INITIATE DIALYSIS YET. JCTate RN CM
--- NOTE | 2019-10-22 15:00 | NUR ---
DOPAMINE DRIP CHANGED TO 2 MCG/KG/MIN.
--- NOTE | 2019-10-22 16:00 | NUR ---
PT'S BP AND HR WNL. DOPAMIN DRIP TURNED OFF PER HOME DEPOT REP. WILL CONT TO MONITOR PT.
[2019-10-22] MEDS: cefTRIAXone 1 GM in D5W 50 ML IV SCH (19:30)
--- NOTE | 2019-10-22 19:30 | NUR ---
Bedside report obtained from day shift nurse. Pt is awake and oriented to his name only. G Tube Feeding of Glucerna 1.5 is infusing well at 50ml/hr with 5ml residual. Skin is warm and dry to touch. No signs or symptoms of hypoglycemia or hyperglycemia noted. QIAN Midline is infusing NS at 100ml/hr. Midline dressing is dry and intact. LIJ Constantino hemodialysis catheter noted with the dressing dry and intact. Fall and safety precautions are in place.
--- NOTE | 2019-10-22 19:46 | NUR ---
END OF SHIFT NOTE; PT HAS BEEN STABLE THE WHOLE SHIFT, VITALS WNL. NO C/O PAIN, TOLERATING G-TUBE FEEDING. TURNED AND REPOSITIONED Q 2HR. ALL MEDS GIVEN. ENDORSED TO NIGHT NURSE LAURA.
--- NOTE | 2019-10-22 20:00 | NUR ---
Hemodialysis started by Dialysis nurse.
--- NOTE | 2019-10-22 20:08 | NUR ---
Per Dialysis nurse, LIJ Constantino catheter is not functioning well and Hemodialysis may be terminated. GT feeding stopped per Dialysis nurse's request so that pt's head could be kept flat to see if the LIQ Constantino cath will function well.
--- NOTE | 2019-10-22 20:18 | NUR ---
Per Dialysis nurse, Hemodialysis was terminated at 2015 with 0ml output because the LIJ Constantino catheter is not functioning. He was informed Dr. De La Garza will be notified.
--- NOTE | 2019-10-22 20:19 | NUR ---
PAGEKathy HORTA [phone] SPOKE WITH CARLOTTA
--- NOTE | 2019-10-22 20:30 | NUR ---
GT feeding resumed with HOB elevated [address] De La Garza is yet to call back, but Dialysis nurse stated that he already left Dr. De La Garza a message and pt is going to need another Hemodialysis access.
--- NOTE | 2019-10-22 20:57 | NUR ---
PAGED 2ND TIME DR. HORTA [phone] SPOKE WITH CARLOTTA
[2019-10-22] MEDS: INSULIN GLARGINE 100 UNITS/ML 10 ML VIAL SUBCUT SCH (21:58)
--- NOTE | 2019-10-22 23:04 | NUR ---
Pt is tolerating GT Feeding well. No acute distress noted at this time. IVF is infusing well via QIAN Midline. Fall and safety precautions are in place.
[2019-10-23] VITALS (22 sets, daily range): BP systolic 116–144
--- NOTE | 2019-10-23 01:30 | NUR ---
Pt is sleeping without any respiratory distress noted. IVF and GTF are infusing well. Fall, seizure and safety precautions are in place.
[2019-10-23] MEDS: CIPROFLOXACIN HCL 0.3% EYE DRP 2.5 ML DROPS LEFT EYE SCH ×6 (02:24→22:49)
--- NOTE | 2019-10-23 03:30 | NUR ---
Pt is awake and confused. Pt is requesting to go home with his grandmother who is 100 years old. Pt also requested for a massage on his left shoulder. Pt denies pain in the shoulder. IVF and GTF are infusing well. Fall, seizure and safety precautions are in place.
--- NOTE | 2019-10-23 05:15 | NUR ---
Pt is awake and resting quietly in bed. No seizure activity noted. GTF and IVF are infusing well. Fall, seizure and safety precautions are in place.
[2019-10-23] MEDS: metroNIDAZOLE 250 mg/NS 50 ML IV SCH ×3 (05:58→22:41)
[2019-10-23 06:10] LABS: BASOPHILS % (AUTO) 0.4 % (0.0-2.0); EOSINOPHILS # (AUTO) 0.7 K/uL (0.0-0.4); EOSINOPHILS % (AUTO) 6.7 % (0.0-4.0); HEMATOCRIT 23.4 % (36-54); HEMOGLOBIN 7.8 g/dL (14.0-18.0); LYMPHOCYTES # (AUTO) 2.9 K/uL (1.0-5.5); LYMPHOCYTES % (AUTO) 27.2 % (20.5-51.5); MEAN CORPUSCULAR HEMOGLOBIN 31 pg (27-31); MEAN CORPUSCULAR HGB CONC 33 % (32-36); MEAN CORPUSCULAR VOLUME 94 fL (79.0-98.0); MONOCYTES # (AUTO) 0.8 K/uL (0.0-1.0); MONOCYTES % (AUTO) 7.9 % (1.7-9.3); NEUTROPHILS # (AUTO) 6.1 K/uL (1.8-7.7); NEUTROPHILS % (AUTO) 57.8 % (40.0-70.0); PLATELET COUNT (AUTO) 178 K/uL (130-430); RED BLOOD CELL COUNT(AUTO) 2.49 MIL/uL (4.2-6.2); RED CELL DISTRIBUTION WIDTH 15.3 % (9.0-15.0); WHITE BLOOD COUNT (AUTO) 10.6 K/uL (4.8-10.8)
[2019-10-23] MEDS: DEXTROSE 50% JECT 50 ML DISP.SYRIN IVP PRN ×2 (06:11→17:03)
--- NOTE | 2019-10-23 06:11 | NUR ---
D50W 1 ampoule given IVP for Accuchecks of 56 and 55. Skin remains warm and dry to touch. GT Feeding is infusing well.
--- NOTE | 2019-10-23 06:25 | NUR ---
PAGED PAGED EHSAN MCCARTHY AT [phone] SPOKE WITH EXCHANGE.
--- NOTE | 2019-10-23 06:29 | NUR ---
Spoke with Dr. De La Garza and new order obtained to contact Dr. Frey for new Hemodialysis access.
--- NOTE | 2019-10-23 06:29 | NUR ---
MD GABRIEL PAGED QUANG BERNARD AT [phone] SPOKE WITH JUAN DANIEL.
--- NOTE | 2019-10-23 06:34 | NUR ---
Accucheck 152. Skin remains warm and dry to touch. GTF and IVF are infusing well. Will endorse to day shift nurse.
[2019-10-23 06:56] LABS: ANION GAP 10 (5-15); CALCIUM 7.7 mg/dL (8.4-11.0); CHLORIDE 111 mmol/L (98-107); CREATININE 3.18 mg/dL (0.55-1.30); GLUCOSE 65 mg/dL (70-99); POTASSIUM 4.6 mmol/L (3.5-5.1); SODIUM SERUM 144 mmol/L (136-145); UREA NITROGEN, BLOOD 73 mg/dL (8-21)
--- NOTE | 2019-10-23 07:10 | NUR ---
Dr. Frey called and he was informed MARIA E Almazan in not functioning, therefore Dr. De La Garza wants him to place another Hemodialysis access. Dr. Frey stated he will try again, but didn't say when. Endorsed to day shift nurse.
--- NOTE | 2019-10-23 07:30 | NUR ---
Opening note patient resting in bed, a/ox1, denies pain, assessment complete, Midline is in place, infusing well, on 2L nasal cannula, tolerating well, G tube is intact, dressing is clean, dry and intact, no residual output at this time, SCD's in place, patient is off Dopamine as of yesterday at 1600, continuing to monitor, bed in lowest position, three side rails up, fall and aspiration precautions in place.
--- NOTE | 2019-10-23 07:45 | NUR ---
Dr. Galeas rounds assessed patient, will follow up with any new orders, MD aware of drop in hemoglobin and aware that the patient is weaned off of Dopamine gtt.
[2019-10-23] MEDS: levETIRAcetam 500 MG TABLET GT SCH ×2 (08:16→21:20)
[2019-10-23] MEDS: ASPIRIN 81 MG TAB.CHEW GT SCH (08:16)
[2019-10-23] MEDS: ATORVASTATIN 10 MG TABLET GT SCH (08:16)
[2019-10-23] MEDS: CITALOPRAM HYDROBROMIDE 20 MG TABLET PO SCH (08:16)
[2019-10-23] MEDS: PANTOPRAZOLE SODIUM 40 MG TAB PO SCH (08:16)
[2019-10-23] MEDS: DOCUSATE SODIUM 100 MG CAPSULE PO SCH ×2 (08:16→09:00)
[2019-10-23] MEDS: SEVELAMER CARBONATE 800 MG TABLET PO SCH ×3 (08:16→16:53)
[2019-10-23] MEDS: GABAPENTIN 100 MG CAPSULE GT SCH ×2 (08:16→21:20)
[2019-10-23] MEDS: FERROUS SULFATE 300 MG/5 ML UDC GT SCH (08:16)
[2019-10-23] MEDS: FINASTERIDE 5 MG TABLET (PROSCAR) GT SCH (08:16)
[2019-10-23] MEDS: TRIAMCINOLONE ACETONIDE 0.1% 15 GM OINT..GM. TP SCH ×2 (08:17→21:25)
--- NOTE | 2019-10-23 08:20 | NUR ---
Medication patient resting in bed, awake, administered medications per MD orders, no residual output from G tube at this time, continuing to monitor, bed in lowest position, three side rails up, bed alarm on, fall, aspiration and seizure precautions in place.
--- NOTE | 2019-10-23 10:00 | NUR ---
CHG bath given patient tolerated well, continuing to monitor.
[2019-10-23] MEDS: NACL 0.9% 1,000 ML IV SCH ×2 (10:34→21:21)
[2019-10-23] MEDS: HYDROcodone/ACETAMIN 5-325 MG TAB (NORCO/ VICODIN) PO PRN (10:36)
--- NOTE | 2019-10-23 15:00 | NUR ---
RN rounds/Medication/Family patient resting in bed, awake, breathing is even and unlabored, no signs of distress, G tube feeding hung, G tube required unclogging, was able to flush eventually, Midline is patent and infusing well, turned, cleaned and repositioned the patient, patient voided, no BM just gas, patient's family arrived at the bedside, updated with plan of care, continuing to monitor, bed in lowest position, three side rails up, fall, aspiration and seizure precautions in place.
--- NOTE | 2019-10-23 16:28 | NUR ---
QUANG FRANCO AT [phone] SPOKE WITH PAUL.
--- NOTE | 2019-10-23 17:01 | NUR ---
Low Blood Glucose scheduled blood glucose check was 53, followed hypoglycemic protocol, administered one amp of D50, will reassess, blood glucose in 15 minutes. Addendum: 10/23/19 at 1723 by Kwesi Kauffman RN Blood glucose recheck 163 at this time, no insulin coverage given.
--- NOTE | 2019-10-23 18:00 | NUR ---
Dr. Frey/New [place] cath Dr. Frey at bedside, placed new Constantino Catheter double lumen, both ports have adequate blood return.
[2019-10-23] MEDS ORDERED: HEPARIN SODIUM,PORCINE 5000 UNITS/ML VIAL MC ONE ×2 (18:15→18:45)
[2019-10-23] MEDS ORDERED: HEPARIN SODIUM,PORCINE 5000 UNITS/ML VIAL ONE (18:16)
--- NOTE | 2019-10-23 18:47 | NUR ---
Hemodialysis nurse at bedside, beginning hemodialysis, patient tolerating well thus far.
--- NOTE | 2019-10-23 19:15 | NUR ---
Report obtained from day shift nurse. Pt is confused and oriented to his name only. Hemodialysis by Dialysis nurse is in progress. Pt is tolerating GT feeding well at 50ml/hr. IVF of NS is infusing well via QIAN PICC at 100ml/hr. Skin is warm and dry to touch. No signs or symptoms of hypoglycemia or hyperglycemia noted.
--- NOTE | 2019-10-23 19:38 | NUR ---
Unable to reach pt's son, Uche for consent. Left voice mail message for him. Telephonic consent for Blood Transfusion obtained from pt's brother, Jey.
--- NOTE | 2019-10-23 20:30 | NUR ---
1 unit PRBC transfusion started by Dialysis nurse.
--- NOTE | 2019-10-23 21:18 | NUR ---
Hemodialysis completed. 1700ml out per Dialysis nurse.
[2019-10-23] MEDS: INSULIN GLARGINE 100 UNITS/ML 10 ML VIAL SUBCUT SCH (21:23)
--- NOTE | 2019-10-23 21:23 | NUR ---
Accucheck 111 and scheduled Lantus Insulin 12 units given SQ. Skin remains warm and dry to touch. GTF is infusing well.
[2019-10-23] MEDS: cefTRIAXone 1 GM in D5W 50 ML IV SCH (21:34)
--- NOTE | 2019-10-23 22:30 | NUR ---
Nursing care of pt endorsed to nurse Luiz.
[2019-10-24] VITALS (17 sets, daily range): BP systolic 100–174
--- NOTE | 2019-10-24 | NUR ---
AWAKE. RESTING. OCCASIONALLY SHOUTS FOR HELP. WHEN ASKED HOW WE COULD HELP HIM, HE STATES TO LET HIS LEGS AND FEET DOWN FROM THE BED TO THE FLOOR. BOUTS OF CONFUSION. NEEDS REORIENTATION TO TIME, PLACE AND CIRCUMSTANCE.
--- NOTE | 2019-10-24 02:00 | NUR ---
DOZES ON AND OFF. NO DISTRESS NOTED.
[2019-10-24] MEDS: HYDROcodone/ACETAMIN 5-325 MG TAB (NORCO/ VICODIN) PO PRN (03:50)
[2019-10-24] MEDS: CIPROFLOXACIN HCL 0.3% EYE DRP 2.5 ML DROPS LEFT EYE SCH ×6 (03:50→22:17)
[2019-10-24] MEDS: DIPHENHYDRAMINE INJ 50 MG/ML VIAL IVP PRN (03:56)
--- NOTE | 2019-10-24 04:00 | NUR ---
OCCASIONALLY SHOUTS FOR HELP. SPEAKS IN TAGALOG. NORCO 5-325MG GT GIVEN FOR C/O BACK PAIN, BENADRYL 25 MG IVP GIVEN FOR SLEEP. RESIDUAL CHECK 0, GT FLUSHED WITH 100 CC H2O. INCONTINENT OF URINE. CLEANED, KEYANNA-CARE, SKIN CARE BACK CARE RENDERED. COMPLETE LINEN CHANGE. DOES NOT ASSIST WITH TURNING. DOUG PROC WELL.
[2019-10-24 05:24] LABS: BASOPHILS % (AUTO) 0.3 % (0.0-2.0); EOSINOPHILS # (AUTO) 0.5 K/uL (0.0-0.4); EOSINOPHILS % (AUTO) 5.2 % (0.0-4.0); HEMATOCRIT 27.6 % (36-54); HEMOGLOBIN 9.4 g/dL (14.0-18.0); LYMPHOCYTES # (AUTO) 1.5 K/uL (1.0-5.5); LYMPHOCYTES % (AUTO) 15.8 % (20.5-51.5); MEAN CORPUSCULAR HEMOGLOBIN 31 pg (27-31); MEAN CORPUSCULAR HGB CONC 34 % (32-36); MEAN CORPUSCULAR VOLUME 92 fL (79.0-98.0); MONOCYTES # (AUTO) 0.7 K/uL (0.0-1.0); MONOCYTES % (AUTO) 6.9 % (1.7-9.3); NEUTROPHILS # (AUTO) 6.9 K/uL (1.8-7.7); NEUTROPHILS % (AUTO) 71.8 % (40.0-70.0); PLATELET COUNT (AUTO) 164 K/uL (130-430); RED BLOOD CELL COUNT(AUTO) 3.02 MIL/uL (4.2-6.2); RED CELL DISTRIBUTION WIDTH 14.2 % (9.0-15.0); WHITE BLOOD COUNT (AUTO) 9.6 K/uL (4.8-10.8)
[2019-10-24] MEDS: metroNIDAZOLE 250 mg/NS 50 ML IV SCH ×3 (05:34→21:10)
[2019-10-24] MEDS: NACL 0.9% 1,000 ML IV SCH ×2 (05:44→10:16)
[2019-10-24 05:58] LABS: ALANINE AMINOTRANSFERASE 33 U/L (12-78); ALBUMIN 2.1 g/dL (3.4-4.8); ANION GAP 7 (5-15); ASPARTATE AMINOTRANSFERASE 29 U/L (10-37); CALCIUM 7.4 mg/dL (8.4-11.0); CHLORIDE 105 mmol/L (98-107); CREATININE 1.92 mg/dL (0.55-1.30); GLUCOSE 55 mg/dL (70-99); POTASSIUM 3.8 mmol/L (3.5-5.1); SODIUM SERUM 139 mmol/L (136-145); TOTAL BILIRUBIN 0.3 mg/dL (0.0-1.0); UREA NITROGEN, BLOOD 35 mg/dL (8-21)
--- NOTE | 2019-10-24 06:00 | NUR ---
CONFUSED. WHINEY. NEEDY. MULTIPLE REQUESTS. REDUNDANT. NEEDS FREQUENT INTERVENTIONS. REMAINS IN GUARDED CONDITION.
--- NOTE | 2019-10-24 06:30 | NUR ---
ACCU-CHEK 50, 1 AMP D50%W IVP GIVEN.
[2019-10-24] MEDS: DEXTROSE 50% JECT 50 ML DISP.SYRIN IVP PRN (06:31)
--- NOTE | 2019-10-24 06:55 | NUR ---
ACCU-CHEK 136.
[2019-10-24] MEDS: CITALOPRAM HYDROBROMIDE 20 MG TABLET PO SCH (08:19)
[2019-10-24] MEDS: levETIRAcetam 500 MG TABLET GT SCH ×2 (08:19→21:07)
[2019-10-24] MEDS: GABAPENTIN 100 MG CAPSULE GT SCH ×2 (08:19→21:07)
[2019-10-24] MEDS: FINASTERIDE 5 MG TABLET (PROSCAR) GT SCH (08:19)
[2019-10-24] MEDS: DOCUSATE SODIUM 100 MG CAPSULE PO SCH (08:19)
[2019-10-24] MEDS: PANTOPRAZOLE SODIUM 40 MG TAB PO SCH (08:19)
[2019-10-24] MEDS: FERROUS SULFATE 300 MG/5 ML UDC GT SCH (08:19)
[2019-10-24] MEDS: SEVELAMER CARBONATE 800 MG TABLET PO SCH ×3 (08:19→18:37)
[2019-10-24] MEDS: ATORVASTATIN 10 MG TABLET GT SCH (08:20)
[2019-10-24] MEDS: cloNIDine HCL 0.1 MG TABLET GT PRN (08:20)
[2019-10-24] MEDS: ASPIRIN 81 MG TAB.CHEW GT SCH (08:20)
[2019-10-24] MEDS: TRIAMCINOLONE ACETONIDE 0.1% 15 GM OINT..GM. TP SCH ×2 (08:21→21:10)
--- NOTE | 2019-10-24 13:45 | NUR ---
Nutrition F/U RD reviewed pt's current EMR including diet Hx, physician notes, nursing notes, pertinent labs/meds/procedures, care trends, and care activity. Current Nutrition Support: Glucerna 1.5 at 50 ml/hr, Free Water Flush: 100ml q 4h via GT x4 days and NPO x4 days Pertinent Medical Info: Per bulk sealer operator note, last dialysis was 10/24/19 -- plans to hold dialysis and observe kidney function per EMR Subjective information: Pt was seen in ICU resting in bed, awake, and able to answer basic yes/no questions. TF seen infusing as per physician order. Per RN, pt has been tolerating TF well, no residuals, but no BM yet today, and plans to transfer pt to telemetry unit. Pt's BG was low this morning and was provided w/ a bolus of dextrose -- pt may need an adjustment to evening lantus med. Labs: BG 55 L, POC BG 136 H, BUN 35 H, CRE 1.92 H NEW Estimated Energy Expenditure (kcals/day) 1134-4457 kcal/day (30-35 kcal/kg based on CBW for chronic Dz) NEW Estimated Protein Required (g/day) 58-86 gm/day (0.8-1.2/kg based on CBW for chronic Dz) Estimated Fluid Required (l/day) Deferred to MD d/t hx of CKD Problem/Etiology/Signs/Symptoms (*modified) Altered nutrition related lab values related to renal and endocrine dysfunction as evidenced by abnormal K, BUN, CRE, phos, Mg, BG, and POC BG lab values. *labs improving Expected Outcomes/Goals Monitor tolerance to enteral regimen and intake w/ goal of pt meeting at least 75% of estimated nutritional needs, labs trending WNL, normal GI function, and skin integrity/wt maintenance Dietitian Recommendations * Recommend Nepro at 35 ml/hr (goal rate), John Paul BID, Free Water Flush: 100 ml q 4h via GT Provides: 1672 kcal/day, gm protein/day, and 1010 ml free water/day Meets: 77% of lower end of estimated calorie needs and 85% of upper end of estimated protein needs Follow Up High Risk: F/U in 2-3 days Addendum: 10/24/19 at [address] CORRECTION: Dietitian Recommendations * Recommend Nepro at 35 ml/hr (goal rate), John Paul BID, Free Water Flush: 100 ml q 4h via GT Provides: 1672 kcal/day, gm protein/day, and 1211 ml free water/day Meets: 77% of lower end of estimated calorie needs and 85% of upper end of estimated protein needs LP, RD Please refer to Nutrition F/U for details.
--- NOTE | 2019-10-24 13:50 | NUR ---
Dietitian Recommendations * Recommend Nepro at 35 ml/hr (goal rate), John Paul BID, Free Water Flush: 100 ml q 4h via GT Provides: 1672 kcal/day, gm protein/day, and 1010 ml free water/day Meets: 77% of lower end of estimated calorie needs and 85% of upper end of estimated protein needs LP, RD Please refer to Nutrition F/U for details. Addendum: 10/24/19 at [address] CORRECTION: Dietitian Recommendations * Recommend Nepro at 35 ml/hr (goal rate), John Paul BID, Free Water Flush: 100 ml q 4h via GT Provides: 1672 kcal/day, gm protein/day, and 1211 ml free water/day Meets: 77% of lower end of estimated calorie needs and 85% of upper end of estimated protein needs LP, RD Please refer to Nutrition F/U for details.
--- NOTE | 2019-10-24 16:05 | NUR ---
ASSUMPTION OF CARE- RECEIVED REPORT FROM RAVI PICKETT. PT WILL TRANSFER TO TELEMETRY UNIT ROOM 100-A. FULL ASSESSMENT COMPLETED. VSS. ORIENTED PT TO BED, ROOM, UNIT, STAFF. POC DISCUSSED. PT REPLIED "OK". PT ORIENTED TO NAME ONLY BELIEVES HE IS AT HOME. RD OF CALL LIGHT NOTED. ENCOURAGED PT TO CALL ME WITH ANY NEEDS. PT REPORTS BEING COLD. HEATED BLANKETS PROVIDED. NO FURTHER NEEDS.
[2019-10-24] MEDS: cefTRIAXone 1 GM in D5W 50 ML IV SCH (18:38)
--- NOTE | 2019-10-24 20:00 | NUR ---
ASSUMED CARE. RECEIVED ALERT,ORIENTED. AFEBRILE, NOT IN ACUTE DISTRESS. DENIES ANY PAIN OR DISCOMFORT. WITH IV FLUID NS INFUSING AT 40 ML/HR VIA RIGHT UPPER ARM DOUBLE LUMEN MIDLINE CATHETER. SALINE LOCK ALSO NOTED TO THE RIGHT AC. G-TUBE FEEDING GLUCERNA 1.5 RUNNING AT 50 ML/HR. HEAD OF BED ELEVATED AT LEAT 30 DEGREES AT ALL TIMES. SAO2=10% ON 2 LPM O2 VIA NC. BILATERAL SCD'S IN PLACE. SIDE RAILS PADDED FOR SEIZURE PRECAUTION. SINUS JASMINE WITH 1ST DEGREE AV BLOCK @ 58/MIN. ON THE SOLAR ELECTRIC/PHOTOVOLTAIC INSTALLER. VS STABLE, WILL CONTINUE TO MONITOR. NEEDS ATTENDED.
--- NOTE | 2019-10-24 20:51 | NUR ---
paged paged for Dr Willingham, dialed . s/w Betina.
[2019-10-24] MEDS: INSULIN GLARGINE 100 UNITS/ML 10 ML VIAL SUBCUT SCH (21:00)
--- NOTE | 2019-10-24 21:04 | NUR ---
CONTACTED AND SPOKE WITH RE: ACTIVE IV FLUID ORDER ON THE EMAR IS NS @ 100 ML/HR BUT PER AM SHIFT RN, RATE IS 40 ML/HR AND PT.IS ON HEMODIALYSIS. DISCONTINUED IV FLUIDS AND CHANGED IT TO SALINE LOCK.
--- NOTE | 2019-10-24 21:10 | NUR ---
FINGERSTICK BLOOD SUGAR CHECK=79. GLIPIZIDE AND LANTUS HELD. OTHER DUE MEDS. GIVEN. GASTRIC RESIDUAL=0.
[2019-10-24] MEDS ORDERED: NORMAL SALINE 5 ML DISP.SYRIN IVF SCH (22:00)
--- NOTE | 2019-10-24 22:45 | NUR ---
HEMODIALYSIS NURSE SABINO CALLED AND CHECKED WITH RN IF THERE IS AN ORDER FOR HEMODIALYSIS WHICHE THERE IS NONE. CHECKED CLERK SECRETARY PROGRESS NOTES AND NOTED THAT INDEED WANTED PT.TO BE MAINTAINED ON NS @ 40 ML/HR. WILL VERIFY WITH .
--- NOTE | 2019-10-24 22:52 | NUR ---
paged paged for Dr De La Garza, dialed . s/w Minerva.
--- NOTE | 2019-10-24 22:53 | NUR ---
CONTACTED AND SPOKE WITH . ORDERED IV FLUID NORMAL SALINE @ 40 ML/HR.
[2019-10-25] MEDS: NACL 0.9% 1,000 ML IV SCH ×2 (00:04→11:48)
--- NOTE | 2019-10-25 00:04 | NUR ---
AWAKE, NOT IN ANY KIND OF DISTRESS. NO PAIN OR DISCOMFORT NOTED. IV FLUID RESTARTED AT 40 ML/HR. SIDE RAILS UP, CALL LIGHT WITHIN REACH. KEPT WARM AND COMFORTABLE.
[2019-10-25 02:16] VITALS: BP_SYST 140
--- NOTE | 2019-10-25 03:10 | NUR ---
ASLEEP, NOT IN ANY KIND OF DISTRESS. NO PAIN OR DISCOMFORT NOTED. VS REMAIN STABLE. WILL CONTINUE TO MONITOR.
[2019-10-25] MEDS: CIPROFLOXACIN HCL 0.3% EYE DRP 2.5 ML DROPS LEFT EYE SCH ×6 (03:45→22:15)
[2019-10-25] MEDS: metroNIDAZOLE 250 mg/NS 50 ML IV SCH ×3 (06:01→22:15)
--- NOTE | 2019-10-25 06:01 | NUR ---
FINGERSTICK BLOOD SUGAR CHECK=60. WILL GIVE APPLE JUICE VIA G-TUBE. DUE IV ANTIBIOTIC GIVEN SCHEDULED.
--- NOTE | 2019-10-25 06:45 | NUR ---
ATTEMPTED TO GIVE 4 OZ APPLE JUICE BUT G-TUBE CLOGGED. G-TUBE DE-CLOGGED SUCCESSFULLY WITH 120 ML OF SODA (COCA-COLA. WILL ENDORSE CARE TO AM SHIFT.
[2019-10-25 07:08] LABS: HEPATITIS B CORE AB, IgM Negative (Negative); HEPATITIS C VIRUS AB <0.1 s/co ratio (0.0-0.9)
--- NOTE | 2019-10-25 07:27 | NUR ---
ENDORSED CARE TO ANMOL LYNCH.
--- NOTE | 2019-10-25 07:30 | NUR ---
RECEIVED PATIENT FROM MOTORCYCLE SUBASSEMBLY REPAIRER NURSE. PATIENT IS AWAKE AND ALERT x3 LAYING DOWN IN BED. PATIENT DENIES ANY PAIN AT THE MOMENT. PATIENT IS TOLERATING OXYGEN ON 2 L NASAL CANNULA WITH NO SIGNS OF DISTRESS OR SHORTNESS OF BREATH NOTED. IV SITE IS PATENT WITH NO SIGNS OF INFILTRATION NOTED. MIDLINE INTACT WITH CLEAN, DRY DRESSING. G-TUBE INTACT WITH CLEAN, DRY DRESSING NOTED AND RUNNING FEEDING ORDERED. PATIENT IN STABLE CONDITION. SAFETY, FALL, ASPIRATION, AND SEIZURE PRECAUTIONS ARE IN PLACE. BED LOCKED IN LOWEST POSITION WITH CALL LIGHT IN REACH. WILL CONTINUE TO MONITOR PATIENT FOR ANY CHANGES.
[2019-10-25 07:32] LABS: ALANINE AMINOTRANSFERASE 36 U/L (12-78); ALBUMIN 2.1 g/dL (3.4-4.8); ANION GAP 10 (5-15); ASPARTATE AMINOTRANSFERASE 34 U/L (10-37); CALCIUM 7.5 mg/dL (8.4-11.0); CHLORIDE 103 mmol/L (98-107); CREATININE 2.42 mg/dL (0.55-1.30); GLUCOSE 60 mg/dL (70-99); POTASSIUM 4.1 mmol/L (3.5-5.1); SODIUM SERUM 138 mmol/L (136-145); TOTAL BILIRUBIN 0.2 mg/dL (0.0-1.0); UREA NITROGEN, BLOOD 47 mg/dL (8-21)
[2019-10-25 07:36] LABS: BASOPHILS % (AUTO) 0.4 % (0.0-2.0); EOSINOPHILS # (AUTO) 0.8 K/uL (0.0-0.4); EOSINOPHILS % (AUTO) 7.5 % (0.0-4.0); HEMATOCRIT 28.1 % (36-54); HEMOGLOBIN 9.4 g/dL (14.0-18.0); LYMPHOCYTES # (AUTO) 1.2 K/uL (1.0-5.5); MEAN CORPUSCULAR HEMOGLOBIN 31 pg (27-31); MEAN CORPUSCULAR HGB CONC 34 % (32-36); MEAN CORPUSCULAR VOLUME 93 fL (79.0-98.0); MONOCYTES # (AUTO) 0.7 K/uL (0.0-1.0); MONOCYTES % (AUTO) 6.7 % (1.7-9.3); NEUTROPHILS # (AUTO) 7.8 K/uL (1.8-7.7); PLATELET COUNT (AUTO) 176 K/uL (130-430); RED BLOOD CELL COUNT(AUTO) 3.03 MIL/uL (4.2-6.2); RED CELL DISTRIBUTION WIDTH 14.6 % (9.0-15.0); WHITE BLOOD COUNT (AUTO) 10.5 K/uL (4.8-10.8)
[2019-10-25 08:21] VITALS: BP_SYST 163
[2019-10-25] MEDS: FERROUS SULFATE 300 MG/5 ML UDC GT SCH (08:44)
[2019-10-25] MEDS: ATORVASTATIN 10 MG TABLET GT SCH (08:45)
[2019-10-25] MEDS: TRIAMCINOLONE ACETONIDE 0.1% 15 GM OINT..GM. TP SCH ×2 (08:45→22:14)
[2019-10-25] MEDS: DOCUSATE SODIUM 100 MG CAPSULE PO SCH (08:45)
[2019-10-25] MEDS: FINASTERIDE 5 MG TABLET (PROSCAR) GT SCH (08:45)
[2019-10-25] MEDS: DEXTROSE 50% JECT 50 ML DISP.SYRIN IVP PRN (08:45)
[2019-10-25] MEDS: CITALOPRAM HYDROBROMIDE 20 MG TABLET PO SCH (08:45)
[2019-10-25] MEDS: SEVELAMER CARBONATE 800 MG TABLET PO SCH ×3 (08:45→17:05)
[2019-10-25] MEDS: levETIRAcetam 500 MG TABLET GT SCH ×2 (08:46→21:51)
[2019-10-25] MEDS: GABAPENTIN 100 MG CAPSULE GT SCH ×2 (08:46→21:51)
[2019-10-25] MEDS: ASPIRIN 81 MG TAB.CHEW GT SCH (08:46)
[2019-10-25] MEDS: cloNIDine HCL 0.1 MG TABLET GT PRN (08:46)
[2019-10-25] MEDS: PANTOPRAZOLE SODIUM 40 MG TAB PO SCH (08:47)
[2019-10-25 09:10] LABS: NEUTROPHILS % (AUTO) 74.4 % (40.0-70.0)
--- NOTE | 2019-10-25 10:39 | NUR ---
RN ROUNDS: PATIENT IS ASLEEP LAYING DOWN IN BED. NO SIGNS OF DISTRESS OR SHORTNESS OF BREATH NOTED. PATIENT IN STABLE CONDITION. WILL CONTINUE TO MONITOR PATIENT FOR ANY CHANGES.
[2019-10-25 12:04] VITALS: BP_SYST 147
[2019-10-25] MEDS ORDERED: HEPARIN SODIUM, PORCINE 10,000 UNITS/ 10 ML VIAL MC ONE ×2 (14:15)
--- NOTE | 2019-10-25 14:20 | NUR ---
RN ROUNDS: PATIENT IS AWAKE AND ALERT x3 LAYING DOWN IN BED. PATIENT RECEIVING DIALYSIS. NO SIGNS OF DISTRESS OR SHORTNESS OF BREATH NOTED. PATIENT IN STABLE CONDITION. WILL CONTINUE TO MONITOR PATIENT FOR ANY CHANGES.
[2019-10-25 16:00] VITALS: BP_SYST 128
[2019-10-25] MEDS: HYDROcodone/ACETAMIN 5-325 MG TAB (NORCO/ VICODIN) PO PRN (16:02)
--- NOTE | 2019-10-25 16:45 | NUR ---
RN ROUNDS: PATIENT IS ASLEEP LAYING DOWN IN BED. PATIENT IS TOLERATING OXYGEN ON 2 L NASAL CANNULA WITH NO SIGNS OF INFILTRATION NOTED. PATIENT IN STABLE CONDITION. WILL CONTINUE TO MONITOR PATIENT FOR ANY CHANGES.
[2019-10-25] MEDS: INSULIN LISPRO SLIDING SCALE 100 UNITS/ML VIAL (humaLOG) SUBCUT PRN ×2 (17:06→21:56)
--- NOTE | 2019-10-25 18:49 | NUR ---
CLOSING NOTES: PATIENT IS AWAKE AND ALERT x3 LAYING DOWN IN BED. PATIENT DENIES ANY PAIN AT THE MOMENT. PATIENT IS TOLERATING OXYGEN ON 2 L NASAL CANNULA WITH NO SIGNS OF DISTRESS OR SHORTNESS OF BREATH NOTED. IV SITE IS PATENT WITH NO SIGNS OF INFILTRATION NOTED. MIDLINE INTACT WITH CLEAN, DRY DRESSING. G-TUBE INTACT WITH CLEAN, DRY DRESSING NOTED AND RUNNING FEEDING ORDERED. PATIENT IN STABLE CONDITION. SAFETY, FALL, ASPIRATION, AND SEIZURE PRECAUTIONS REMAINED IN PLACE THROUGHOUT THE SHIFT. BED LOCKED IN LOWEST POSITION WITH CALL LIGHT IN REACH. WILL ENDORSE PATIENT CARE TO ONCOMING ASSET PROTECTION OFFICER NURSE.
[2019-10-25 19:00] VITALS: BP_SYST 141
[2019-10-25] MEDS: cefTRIAXone 1 GM in D5W 50 ML IV SCH (19:38)
--- NOTE | 2019-10-25 19:45 | NUR ---
A/A/ OX2.DENIES ANY DISCOMFORT@ THIS TIME.TOTAL CARE.DENIES SOB.O2 SAT ON 2L NC 100%.NOTED WITH LEFT SIDED WEAKNESS.ON SEIZURE PRECAUTION.SIDE RAILS PADDED.LEFT IJ DRESSING D/I.QIAN ML DRESSING D/I.NOTED RIGHT UPPER EXTREMITY WITH BRUISING.LEFT LOWER BACK SKIN TEAR.RIGHT 2ND TOE WITH OLD WOUND & SACRAL SCAR.IVF NS @ ML/HR INFUSING WELL ON HIS RIGHT UPPER ML.GLUCERNA @ 50 ML/HR INFUSING WELL VIA GT;NO RESIDUAL.INSTRUCTED TO USE CALL LIGHT NEEDED;WITHIN REACH.
[2019-10-25 20:00] VITALS: BP_SYST 141
--- NOTE | 2019-10-25 21:00 | NUR ---
FINGER STICK BLD SUGAR 167.DUE MEDS ADM.
[2019-10-25] MEDS: INSULIN GLARGINE 100 UNITS/ML 10 ML VIAL SUBCUT SCH (21:55)
[2019-10-25] MEDS: ACETAMINOPHEN 325 MG TABLET PO PRN (22:16)
[2019-10-25] MEDS: DIPHENHYDRAMINE INJ 50 MG/ML VIAL IVP PRN (22:33)
--- NOTE | 2019-10-25 22:33 | NUR ---
@2425 C/O H/A SCALE 03/23.TYLENOL 650MG VIA GT AD. @3382 BENADRYL IV ADM FOR ITCHING OF HIS HEAD.
--- NOTE | 2019-10-25 23:16 | NUR ---
PER PT H/A STILL PERSIST BUT DECREASED TO SCALE 2.
--- NOTE | 2019-10-26 | NUR ---
AFEBRILE. BP140/67. RESTING COMFORTABLY IN NO ACUTE DISTRESS.EASILY AROUSABLE.REPOSITIONED BY CURRICULUM DEVELOPER.
[2019-10-26 00:55] VITALS: BP_SYST 140
--- NOTE | 2019-10-26 02:00 | NUR ---
REPOSITIONED BY RECLAMATION KETTLE TENDER.
[2019-10-26] MEDS: CIPROFLOXACIN HCL 0.3% EYE DRP 2.5 ML DROPS LEFT EYE SCH ×6 (03:16→23:55)
--- NOTE | 2019-10-26 04:00 | NUR ---
DRESSING CHANGED TO GT;NO DRAINAGE NOTED.
[2019-10-26] MEDS: HYDROcodone/ACETAMIN 5-325 MG TAB (NORCO/ VICODIN) PO PRN ×4 (05:25→21:31)
--- NOTE | 2019-10-26 05:25 | NUR ---
[facility] FOR H/A SCALE 8/10.
[2019-10-26] MEDS: metroNIDAZOLE 250 mg/NS 50 ML IV SCH ×2 (05:26→14:30)
--- NOTE | 2019-10-26 06:25 | NUR ---
PER PT PAIN WITH RELIEF POST NORCO.FINGER STICK BLD SUGAR 127.
--- NOTE | 2019-10-26 06:43 | NUR ---
ENDORSED IN NO ACUTE DISTRESS.IVF INFUSING WELL.NO EPISODE OF SEIZURE OVER 12 HRS. NO S/S/ OF HYPO/HYPERGLYCEMIA NOTED.SAFETY MAINTAINED.
[2019-10-26 07:18] LABS: BASOPHILS % (AUTO) 0.6 % (0.0-2.0); EOSINOPHILS # (AUTO) 0.7 K/uL (0.0-0.4); EOSINOPHILS % (AUTO) 8.1 % (0.0-4.0); HEMATOCRIT 29.6 % (36-54); HEMOGLOBIN 9.9 g/dL (14.0-18.0); LYMPHOCYTES # (AUTO) 1.4 K/uL (1.0-5.5); LYMPHOCYTES % (AUTO) 17.9 % (20.5-51.5); MEAN CORPUSCULAR HEMOGLOBIN 31 pg (27-31); MEAN CORPUSCULAR HGB CONC 34 % (32-36); MEAN CORPUSCULAR VOLUME 94 fL (79.0-98.0); MONOCYTES # (AUTO) 0.8 K/uL (0.0-1.0); MONOCYTES % (AUTO) 10.3 % (1.7-9.3); NEUTROPHILS # (AUTO) 5.1 K/uL (1.8-7.7); NEUTROPHILS % (AUTO) 63.1 % (40.0-70.0); PLATELET COUNT (AUTO) 168 K/uL (130-430); RED BLOOD CELL COUNT(AUTO) 3.16 MIL/uL (4.2-6.2); RED CELL DISTRIBUTION WIDTH 14.6 % (9.0-15.0)
--- NOTE | 2019-10-26 07:40 | NUR ---
OPENING NOTE PATIENT AWAKE, ALERT, ORIENTED X2. PATIENT IN BED, HOB ELEVATED, RESPIRATIONS EVEN AND UNLABORED ON O2 2L NC, PATIENT TOLERATING TUBE FEEDING, TOLERATING IV FLUIDS, COMPLAINING OF BACK PAIN BUT WILL WAIT UNTIL PAIN MEDICATION IS AVAILABLE, BILATERAL SCDs IN PLACE AND TOLERATING WELL, PATIENT ON AIR MATTRESS, BED IN LOWEST POSITION, 3 SIDE RAILS UP, CALL LIGHT WITHIN REACH, NO NEEDS MET AT THIS TIME.
[2019-10-26 07:50] LABS: ANION GAP 11 (5-15); CALCIUM 7.9 mg/dL (8.4-11.0); CHLORIDE 102 mmol/L (98-107); CREATININE 1.95 mg/dL (0.55-1.30); GLUCOSE 142 mg/dL (70-99); POTASSIUM 3.9 mmol/L (3.5-5.1); SODIUM SERUM 135 mmol/L (136-145); UREA NITROGEN, BLOOD 33 mg/dL (8-21)
[2019-10-26 08:00] VITALS: BP_SYST 160
[2019-10-26] MEDS: FERROUS SULFATE 300 MG/5 ML UDC GT SCH (08:39)
[2019-10-26] MEDS: ATORVASTATIN 10 MG TABLET GT SCH (08:40)
[2019-10-26] MEDS: levETIRAcetam 500 MG TABLET GT SCH ×2 (08:40→21:15)
[2019-10-26] MEDS: ASPIRIN 81 MG TAB.CHEW GT SCH (08:40)
[2019-10-26] MEDS: DOCUSATE SODIUM 100 MG CAPSULE PO SCH (08:40)
[2019-10-26] MEDS: PANTOPRAZOLE SODIUM 40 MG TAB PO SCH (08:40)
[2019-10-26] MEDS: CITALOPRAM HYDROBROMIDE 20 MG TABLET PO SCH (08:40)
[2019-10-26] MEDS: GABAPENTIN 100 MG CAPSULE GT SCH ×2 (08:40→21:15)
[2019-10-26] MEDS: SEVELAMER CARBONATE 800 MG TABLET PO SCH ×3 (08:44→17:24)
[2019-10-26] MEDS: FINASTERIDE 5 MG TABLET (PROSCAR) GT SCH (08:46)
[2019-10-26] MEDS: TRIAMCINOLONE ACETONIDE 0.1% 15 GM OINT..GM. TP SCH ×2 (08:49→21:18)
--- NOTE | 2019-10-26 10:43 | NUR ---
pain reassessment patient resting in bed, eyes closed breathing easy and nonlabored, no signs of distress at this time, no signs of discomfort.
[2019-10-26 12:00] VITALS: BP_SYST 168
--- NOTE | 2019-10-26 12:15 | NUR ---
ROUNDS PATIENT AWAKE IN BED, PATIENT TOLERATED MEDICATIONS AND WATER FLUSH 100ML, PATIENT STATES HE IS HAVING DIFFICULTY BREATHING, ELEVATED HOB, PULSE OX 97% ON 2LNC, PATIENT VERBALIZED HE FELT IMMEDIATE RELIEF NO LONGER SOB. FALL AND SAFETY PRECAUTIONS IN PLACE.
--- NOTE | 2019-10-26 13:30 | NUR ---
SPOKE TO NURSE AT [facility] informed them that the MD put a DC order to transfer him back to [facility], they requested for me to fax over his paperwork and they will call back to see if they can take him tonight. Addendum: 10/26/19 at 1607 by Hortensia Chao RN [id number] Called Susie, asked her for an update, she said that they gave the paperwork to admitting and they still have not got a response, they said they cannot accept the patient until they get a response back from admitting.
[2019-10-26] MEDS: cloNIDine HCL 0.1 MG TABLET GT PRN (13:46)
[2019-10-26 14:28] LABS: HEPATITIS A AB, IgM Negative (Negative)
--- NOTE | 2019-10-26 14:30 | NUR ---
ROUNDS PATIENT IN BED RESTING WITH EYES CLOSED, HOB ELEVATED, PROVIDED PERINEAL CARE AND CHANGED BED LINEN, REPOSITIONED PATIENT, NO DISTRESS NOTED AT THIS TIME.
--- NOTE | 2019-10-26 16:15 | NUR ---
ROUNDS PATIENT RESTING IN BED WITH EYES CLOSED, NO SIGNS OF DISTRESS NOTED, WATER FLUSH GIVEN AND PATIENT TOLERATED, PATIENT DENIES PAIN AT THIS TIME, NO NEEDS ADDRESSED AT THIS TIME.
[2019-10-26 16:44] VITALS: BP_SYST 149
--- NOTE | 2019-10-26 17:14 | NUR ---
Nutrition F/U RD reviewed pt's current EMR including diet Hx, physician notes, nursing notes, pertinent labs/meds/procedures, care trends, and care activity. Current Nutrition Support: Glucerna 1.5 at 50 ml/hr, Free Water Flush: 100ml q 4h via GT x6 days and NPO x6 days Pertinent Medical Info: Per plugger worker note, last dialysis was 10/24/19 -- plans to hold dialysis and observe kidney function per EMR Subjective information: Pt was seen resting in bed w/ RN providing care at bedside and TF infusing as per physician order. Plans for D/C back to SNF per physician order. Estimated Energy Expenditure (kcals/day) 0369-5429 kcal/day (30-35 kcal/kg based on CBW for chronic Dz) Estimated Protein Required (g/day) 58-86 gm/day (0.8-1.2/kg based on CBW for chronic Dz) Estimated Fluid Required (l/day) Deferred to MD d/t hx of CKD Problem/Etiology/Signs/Symptoms (*modified) Altered nutrition related lab values related to renal and endocrine dysfunction as evidenced by abnormal K, BUN, CRE, phos, Mg, BG, and POC BG lab values. *labs seemingly stable/improving Expected Outcomes/Goals Monitor tolerance to enteral regimen and intake w/ goal of pt meeting at least 75% of estimated nutritional needs, labs trending WNL, normal GI function, and skin integrity/wt maintenance Dietitian Recommendations * Recommend Nepro at 35 ml/hr (goal rate), John Paul BID, Free Water Flush: 100 ml q 4h via GT Provides: 1672 kcal/day, gm protein/day, and 1211 ml free water/day Meets: 77% of lower end of estimated calorie needs and 85% of upper end of estimated protein needs Follow Up High Risk: F/U in 2-3 days
--- NOTE | 2019-10-26 17:17 | NUR ---
Dietitian Recommendations * Recommend Nepro at 35 ml/hr (goal rate), John Paul BID, Free Water Flush: 100 ml q 4h via GT Provides: 1672 kcal/day, gm protein/day, and 1211 ml free water/day Meets: 77% of lower end of estimated calorie needs and 85% of upper end of estimated protein needs LP, RD Please refer to Nutrition F/U for details.
[2019-10-26] MEDS: NACL 0.9% 1,000 ML IV SCH (17:28)
--- NOTE | 2019-10-26 18:50 | NUR ---
CLOSING NOTE PATIENT AWAKE, ALERT, ORIENTED X2. PATIENT IN BED, HOB ELEVATED, RESPIRATIONS EVEN AND UNLABORED ON O2 2L NC, PATIENT TOLERATING TUBE FEEDING, TOLERATING IV FLUIDS, REPOSITIONED, PATIENT COMFORTABLE AT THIS TIME. BILATERAL SCDs IN PLACE AND TOLERATING WELL, PATIENT ON AIR MATTRESS, BED IN LOWEST POSITION, 3 SIDE RAILS UP, CALL LIGHT WITHIN REACH, NO NEEDS MET AT THIS TIME. ENDORSED CARE TO NIGHT NURSE.
--- NOTE | 2019-10-26 19:30 | NUR ---
initial notes: seen pt on bed, resting, wakes up when called by name, oriented x 3. pt has quinthon catheter to left neck- intact. ivf infusing to right upper arm picc line. pt has gtube flowing well. incontinent of bowel and bladder. pt has wound coccyx and left upper back. dressing change done by am rn. needs attended. explained to pt plan of care. pt agree. safety on, call light in reach. will follow-up.
[2019-10-26 20:46] VITALS: BP_SYST 163
[2019-10-26] MEDS: INSULIN GLARGINE 100 UNITS/ML 10 ML VIAL SUBCUT SCH (21:00)
--- NOTE | 2019-10-26 22:00 | NUR ---
sleeping, no sign of pain, no difficulty of breathing. stable. will follow-up.
[2019-10-26 23:13] VITALS: BP_SYST 142
--- NOTE | 2019-10-26 23:56 | NUR ---
resting, wakes up for eyes drops, no pain, stable. needs attended. safety on. will follow-up.
[2019-10-27] VITALS (7 sets, daily range): BP systolic 120–169
[2019-10-27] MEDS: HYDROcodone/ACETAMIN 5-325 MG TAB (NORCO/ VICODIN) PO PRN ×2 (02:09→09:09)
[2019-10-27] MEDS: CIPROFLOXACIN HCL 0.3% EYE DRP 2.5 ML DROPS LEFT EYE SCH ×3 (02:21→11:13)
--- NOTE | 2019-10-27 02:24 | NUR ---
pt wakes up and complain of back pain, stable. prn pain medication given, reposition, educated about medication. needs attended. will follow-up.
--- NOTE | 2019-10-27 04:15 | NUR ---
pt is awake, alert, no pain, stable. needs attended. will follow-up.
--- NOTE | 2019-10-27 05:49 | NUR ---
pt is awake, alert, clean and reposition pt. tolerate well. stable. will follow-up.
[2019-10-27] MEDS: INSULIN LISPRO SLIDING SCALE 100 UNITS/ML VIAL (humaLOG) SUBCUT PRN (06:27)
--- NOTE | 2019-10-27 07:28 | NUR ---
CLOSING: PT IS AWAKE, ALERT, COMPLAIN OF PAIN. STABLE, REPOSITION PT. TUBE FEEDING INFUSING WELL. IVF INFUSING TO MIDLINE, NEEDS ATTENDED THE WHOLE SHIFT, BEDSIDE REPORT GIVEN TO AM RN.
--- NOTE | 2019-10-27 07:30 | NUR ---
OPENING NOTE PATIENT AWAKE, ALERT, ORIENTED X2. PATIENT IN BED, HOB ELEVATED, RESPIRATIONS EVEN AND UNLABORED ON O2 2L NC, PATIENT TOLERATING TUBE FEEDING, TOLERATING IV FLUIDS, COMPLAINING OF BACK PAIN BUT WILL WAIT UNTIL PAIN MEDICATION IS AVAILABLE, REPOSITION PATIENT FOR COMFORT. BILATERAL SCDs IN PLACE AND TOLERATING WELL, PATIENT ON AIR MATTRESS, SEIZURE PRECAUTIONS IN PLACE WITH PADS ON BEDRAILS. BED IN LOWEST POSITION, 3 SIDE RAILS UP, CALL LIGHT WITHIN REACH, NO NEEDS MET AT THIS TIME.
[2019-10-27] MEDS: TRIAMCINOLONE ACETONIDE 0.1% 15 GM OINT..GM. TP SCH ×2 (08:50→21:53)
[2019-10-27] MEDS: CITALOPRAM HYDROBROMIDE 20 MG TABLET PO SCH ×2 (09:00→09:08)
[2019-10-27] MEDS: DOCUSATE SODIUM 100 MG CAPSULE PO SCH ×2 (09:00→09:08)
[2019-10-27] MEDS: ATORVASTATIN 10 MG TABLET GT SCH ×2 (09:00→09:13)
[2019-10-27] MEDS: ASPIRIN 81 MG TAB.CHEW GT SCH ×2 (09:00→09:09)
[2019-10-27] MEDS: FERROUS SULFATE 300 MG/5 ML UDC GT SCH ×2 (09:00→09:07)
[2019-10-27] MEDS: FINASTERIDE 5 MG TABLET (PROSCAR) GT SCH ×3 (09:00→10:06)
[2019-10-27] MEDS: levETIRAcetam 500 MG TABLET GT SCH ×4 (09:00→22:49)
[2019-10-27] MEDS: GABAPENTIN 100 MG CAPSULE GT SCH ×4 (09:00→22:49)
[2019-10-27] MEDS: PANTOPRAZOLE SODIUM 40 MG TAB PO SCH ×2 (09:00→09:13)
[2019-10-27] MEDS: SEVELAMER CARBONATE 800 MG TABLET PO SCH ×4 (09:08→17:19)
--- NOTE | 2019-10-27 10:00 | NUR ---
CLOGGED GTUBE GTUBE CLOGGED, WILL NOT FLUSH. MORNING MEDICATIONS HELD DUE TO CLOGGED GTUBE. DR RAE INFORMED, ORDERED FOR GI CONSULT TO CHANGE GTUBE. EDUCATED PATIENT ABOUT THIS, HE VERBALIZED UNDERSTANDING.
--- NOTE | 2019-10-27 10:43 | NUR ---
CONSULTATION PAGED REASON FOR CONSULTATION:CLOGGED G-TUBE WAS CONSULT CALLED?Y PERSON WHO WAS NOTIFIED:JESSE CONSULTING PHYSICIAN:JAQUAN COUCH PATIENT ACCOUNTS CLERK SPECIALTY:GI PATIENT ACCOUNTS CLERK PHONE NUMBER:[phone] ORDERING PHYSICIAN:
--- NOTE | 2019-10-27 12:12 | NUR ---
Case Mngt. BROKERAGE MANAGER is helping with discharge planning BROKERAGE MANAGER spoke to Susie from [facility], who stated she will follow up from yesterday. They have received the packet from [facility] , but she has yet to hear back from Admin. BROKERAGE MANAGER followed up. Susie stated she still has not heard back, but will call. Susie stated she cannont get a hold of Admin. , will try again. Susie asked about pt. BROKERAGE MANAGER stated pt. has no fever, no cough, re. dialysis pt. has a port in the event it is needed. Rn at [facility] is waiting for to check g-tube. Once this has been done, BROKERAGE MANAGER will contact Susie to see if there is an update on pts. possible D/C to [facility].
--- NOTE | 2019-10-27 12:30 | NUR ---
ROUNDS PATIENT COMPLAINS OF HEADACHE, UNABLE TO GIVEN MEDICATION AT THIS TIME DUE TO CLOGGED GTUBE, WAITING FOR GI CONSULT, REPOSITIONED FOR COMFORT.
--- NOTE | 2019-10-27 12:59 | NUR ---
Discharge Planning: DCP faxed pt referral to [facility] ([phone] p [phone]) DCP to follow up. Addendum: 10/27/19 at 1449 by Kanika MERCADO [facility] ([phone] p [phone]) accepted pt back to [facility]. Patient will have G-tube check by doctor, then possibly discharge.
[2019-10-27] MEDS ORDERED: ENALAPRILAT DIHYDRATE 1.25 MG/ML VIAL IVP ONE (13:15)
--- NOTE | 2019-10-27 13:15 | NUR ---
ONE TIME VASOTEC spoke to Dr Newberry on the phone, explained to him about the patient's SBP > 160 and that I cannot give him the prn catapres because of his clogged g tube, gave me a one time order to vasotec, educated patient on medication use and side effects, patient verbalized understanding and tolerated well, no signs of distress at this time.
--- NOTE | 2019-10-27 14:00 | NUR ---
blood pressure rechecked BP now 150/64, patient has no signs of distress at this time, repositioned his pillow, patient stated he was comfortable in the position I put him in, fall/safety, seizure, and aspiration precautions in place.
--- NOTE | 2019-10-27 14:43 | NUR ---
PAGED PAGED JAQUAN COUCH AT [phone] SPOKE WITH JESSE.
--- NOTE | 2019-10-27 14:49 | NUR ---
spoke to Dr Kimball informed him about the patient needing his g tube changed, said he will not be able to do it until tomorrow.
[2019-10-27] MEDS: MORPHINE 2 MG/ML INJ. SYRINGE IVP PRN (16:54)
--- NOTE | 2019-10-27 16:54 | NUR ---
PAIN MEDICATION patient resting in bed, complaining of back pain, educated on medication use and side effects, patient verbalized understanding, patient cleaned and repositioned, no signs of distress at this time.
[2019-10-27] MEDS: NACL 0.9% 1,000 ML IV SCH (17:23)
--- NOTE | 2019-10-27 19:25 | NUR ---
CLOSING NOTE PATIENT AWAKE, ALERT, ORIENTED X2. PATIENT IN BED, HOB ELEVATED, RESPIRATIONS EVEN AND UNLABORED ON O2 2L NC, TOLERATING IV FLUIDS, REPOSITIONED, PATIENT COMFORTABLE AT THIS TIME. BILATERAL SCDs IN PLACE AND TOLERATING WELL, PATIENT ON AIR MATTRESS, BED IN LOWEST POSITION, 3 SIDE RAILS UP, CALL LIGHT WITHIN REACH, NO NEEDS MET AT THIS TIME. ENDORSED CARE TO NIGHT NURSE. GTUBE CLOGGED AND WILL BE CHANGED TOMORROW PER GLORIA OLIVER
--- NOTE | 2019-10-27 19:45 | NUR ---
A/A/O X3.ON SEMI FOWLERS POSITION.TOTAL CARE. WITH LEFT HEMIPLEGIA.BEDBOUND.DENIES ANY DISCOMFORT @ THIS TIME. DENIES SOB.O2 SAT ON 2L O2 NC,99%.IVF NS @ 40 ML/HR INFUSING WELL ON HIS RIGHT UPPER ARM ML.GT IS CLOGGED .SCD IN PLACE.LEFT IJ EDITH DRESSING D/I. NOTED WITH OPTI FOAM ON HIS LEFT LATERAL SIDE ,LEFT UPPER BACK & SACRAL AREA.INSTRUCTED TO USE CALL LIGT NEEDED;WITHIN REACH.
--- NOTE | 2019-10-27 20:00 | NUR ---
AFEBRILE.BP 160/79.TELE SHOWED SR. WILL CON'T TO MONITOR BP.
[2019-10-27] MEDS: INSULIN GLARGINE 100 UNITS/ML 10 ML VIAL SUBCUT SCH (21:00)
--- NOTE | 2019-10-27 21:00 | NUR ---
FINGER STICK BLD SUGAR 117.
--- NOTE | 2019-10-27 22:20 | NUR ---
ABLE TO UNCLOGGED GT;GLUCERNA 1.5 @ 50 ML/HR STARTED & INFUSING WELL.
[2019-10-27] MEDS: cloNIDine HCL 0.1 MG TABLET GT PRN (23:00)
--- NOTE | 2019-10-27 23:00 | NUR ---
DUE MEDS ADM. BP 165/84,NH 72.CATAPRES 0.1 MG VIA GT ADM.WILL CON'T TO MONITOR BP.
--- NOTE | 2019-10-28 02:00 | NUR ---
BP 175/85.TELE SHOWED SR.
--- NOTE | 2019-10-28 03:02 | NUR ---
OPENING NOTES RECEIVED PATIENT IN BED RESTING. NO SOB ON 02 2L NC. BED IN LOWEST LOCKED POSITION. CALL LIGHT WITH IN REACH. SEIZURE PRECAUTIONS IN PLACED. HOB ELEVATED 30 DEGREES. Addendum: 10/29/19 at 0304 by Unique Juares RN INCORRCT DATE/TIME DONE 10/28/2019 @ 5957
[2019-10-28 03:15] VITALS: BP_SYST 175
[2019-10-28] MEDS: HYDROcodone/ACETAMIN 5-325 MG TAB (NORCO/ VICODIN) PO PRN (03:39)
--- NOTE | 2019-10-28 05:40 | NUR ---
WAS CALLED RE: HIGH BP. TEL ORDER WAS GIVEN.MADE AWARE THAT GT IS WORKING .
--- NOTE | 2019-10-28 05:48 | NUR ---
Paged Dr. Kimball, s/w Leanna Mathis spoke to the doctor.
--- NOTE | 2019-10-28 05:55 | NUR ---
WAS CALLED & RESPONDED.MADE AWARE THAT GT IS WORKING.
[2019-10-28] MEDS ORDERED: hydrALAZINE HCL 20 MG/ML VIAL IVP ONE (06:00)
[2019-10-28] MEDS: MORPHINE 2 MG/ML INJ. SYRINGE IVP PRN ×2 (06:35→13:12)
--- NOTE | 2019-10-28 06:35 | NUR ---
FINGER STICK BLD SUGAR 175.HUMULOG 2 UNITS SUB Q ADM.
[2019-10-28] MEDS: INSULIN LISPRO SLIDING SCALE 100 UNITS/ML VIAL (humaLOG) SUBCUT PRN ×4 (06:39→22:29)
--- NOTE | 2019-10-28 07:00 | NUR ---
ENDORSED IN NO ACUTE DISTRESS.SAFETY MAINTAINED.NO S/S OF HYPO/HYPERGLYCEMIA NOTED.NO EPISODE OF SEIZURE.IVF NS @ 40ML/HR,GLUCERNA 1.5 @ 50 ML/HR INFUSING WELL RESPECTIVELY.
[2019-10-28 07:05] LABS: BASOPHILS # (AUTO) 0.1 K/uL (0.0-0.2); BASOPHILS % (AUTO) 0.7 % (0.0-2.0); EOSINOPHILS # (AUTO) 0.7 K/uL (0.0-0.4); EOSINOPHILS % (AUTO) 7.8 % (0.0-4.0); HEMATOCRIT 25.7 % (36-54); HEMOGLOBIN 8.7 g/dL (14.0-18.0); LYMPHOCYTES # (AUTO) 1.6 K/uL (1.0-5.5); LYMPHOCYTES % (AUTO) 17.9 % (20.5-51.5); MEAN CORPUSCULAR HEMOGLOBIN 31 pg (27-31); MEAN CORPUSCULAR HGB CONC 34 % (32-36); MEAN CORPUSCULAR VOLUME 92 fL (79.0-98.0); MONOCYTES # (AUTO) 0.9 K/uL (0.0-1.0); MONOCYTES % (AUTO) 9.4 % (1.7-9.3); NEUTROPHILS # (AUTO) 5.8 K/uL (1.8-7.7); NEUTROPHILS % (AUTO) 64.2 % (40.0-70.0); PLATELET COUNT (AUTO) 218 K/uL (130-430); RED CELL DISTRIBUTION WIDTH 14.1 % (9.0-15.0)
[2019-10-28 07:47] LABS: ALANINE AMINOTRANSFERASE 38 U/L (12-78); ALBUMIN 1.9 g/dL (3.4-4.8); ANION GAP 7 (5-15); ASPARTATE AMINOTRANSFERASE 36 U/L (10-37); CALCIUM 7.5 mg/dL (8.4-11.0); CHLORIDE 104 mmol/L (98-107); CREATININE 2.73 mg/dL (0.55-1.30); GLUCOSE 186 mg/dL (70-99); POTASSIUM 4.3 mmol/L (3.5-5.1); SODIUM SERUM 137 mmol/L (136-145); TOTAL BILIRUBIN 0.3 mg/dL (0.0-1.0); UREA NITROGEN, BLOOD 51 mg/dL (8-21)
--- NOTE | 2019-10-28 07:55 | NUR ---
Initial notes: Patient has stable vital signs, he states he is in pain, will give meds on the next due time, in the meantime we omar reposition patient to help with the back pain. Bed is low and locked, 2 side rails are up and call light is within reach. Bandar PICKETT
[2019-10-28 08:04] VITALS: BP_SYST 129
[2019-10-28] MEDS: FINASTERIDE 5 MG TABLET (PROSCAR) GT SCH (08:57)
[2019-10-28] MEDS: DOCUSATE SODIUM 100 MG CAPSULE PO SCH (08:58)
[2019-10-28] MEDS: ASPIRIN 81 MG TAB.CHEW GT SCH (08:58)
[2019-10-28] MEDS: FERROUS SULFATE 300 MG/5 ML UDC GT SCH (08:59)
[2019-10-28] MEDS: ATORVASTATIN 10 MG TABLET GT SCH (08:59)
[2019-10-28] MEDS: PANTOPRAZOLE SODIUM 40 MG TAB PO SCH (08:59)
[2019-10-28] MEDS: levETIRAcetam 500 MG TABLET GT SCH ×2 (08:59→22:08)
[2019-10-28] MEDS: GABAPENTIN 100 MG CAPSULE GT SCH ×2 (08:59→22:08)
[2019-10-28] MEDS: SEVELAMER CARBONATE 800 MG TABLET PO SCH ×3 (09:08→18:12)
[2019-10-28] MEDS: CITALOPRAM HYDROBROMIDE 20 MG TABLET PO SCH (09:08)
[2019-10-28] MEDS ORDERED: SEVELAMER CARBONATE 800 MG TABLET ONE (09:21)
[2019-10-28] MEDS: TRIAMCINOLONE ACETONIDE 0.1% 15 GM OINT..GM. TP SCH ×2 (10:16→22:32)
--- NOTE | 2019-10-28 10:22 | NUR ---
Patient is watching tv, he was repositioned, his g-tube worked fine when given meds this morning. Bed is low and locked, 2 side rails are up and call light is within reach. Bandar PICKETT
--- NOTE | 2019-10-28 10:42 | NUR ---
Discharge Planning: DILIP made Alisha at [facility] ([phone]) pt room 241A will returning, SILVIAP arranged transportation with [facility] ([phone]) 12:30pm P/U. SILVIAP made nurse aware patient packet taken to nurse station.
--- NOTE | 2019-10-28 11:02 | NUR ---
Paged to ask if he wanted to still hold the dialysis before we send the patient back to [facility]. He stated he wanted to delay the transfer and ordered a stat dialysis. [facility] was contacted to give report and to inform of the delay, spoke with Niesha. Irs Agent was given the order for dialysis to initiate the request. We are waiting for dialysis. Bandar PICKETT
[2019-10-28 11:22] VITALS: BP_SYST 129
[2019-10-28 12:00] VITALS: BP_SYST 129
--- NOTE | 2019-10-28 14:13 | NUR ---
Patient sugar was checked and covered. He was also given his pain meds. Bed is low and locked, 2 side rails are up and call light is within reach. Bandar PICKETT
[2019-10-28] MEDS ORDERED: ALTEPLASE 2 MG VIAL MC ONE ×2 (15:15→15:45)
--- NOTE | 2019-10-28 15:44 | NUR ---
Per afternoon dialysis, the damaris cath did not work too well. He used alteplase to try to unclog it, should it not work, it will have to be replaced. An evening dialysis nurse will come to try to finish the dialysis if the alteplase works. Machine is still in the patients room. Bandar PICKETT
[2019-10-28 16:08] VITALS: BP_SYST 155
[2019-10-28] MEDS ORDERED: EPOETIN ALFA 10,000 UNITS/ML VIAL SUBCUT SCH (17:00)
--- NOTE | 2019-10-28 17:33 | NUR ---
Checked on patient, he was being repositioned by the BRICK EXTRUDER OPERATOR, his sugar was checked and given coverage of 2 units of insulin. He is going back to sleep. Bed is low and locked, 2 side rails are up and call light is within reach. Bandar PICKETT
--- NOTE | 2019-10-28 18:27 | NUR ---
Patient renvela was given, patient is asleep. Bed is low and locked, 2 side rails are up and call light is within reach. Bandar PICKETT
--- NOTE | 2019-10-28 18:57 | NUR ---
Closing notes: Dialysis is due to come to finish dialysis today. Tube feeding w/glucerna bottle was changed this evening. Patient is sleeping. He will discharged after his dialysis, most likely tomorrow if [facility] does not take him in the middle of the night. Report will be given to cnc machinist 2nd shift nurse. Bed is low and locked, 2 side rails are up and call light is within reach. Bandar PICKETT
--- NOTE | 2019-10-28 19:30 | NUR ---
HD HD NURSE AT BEDSIDE FOR DIALYSIS TREATMENT. HD CATH WORKING WELL AT THIS TIME. VITAL SIGNS STABLE.
[2019-10-28] MEDS ORDERED: HEPARIN SODIUM,PORCINE 5000 UNITS/ML VIAL ONE ×2 (20:11→22:37)
--- NOTE | 2019-10-28 21:00 | NUR ---
GT GT CLOGGED. UNABLE TO GIVE MEDICATIONS THIS TIME. MILKED EXTERNAL TUBE ABLE TO REMOVED OLD CLUMPY FEEDING BUT STILL UNABLE TO FLUSH. WILL TRY TO DE CLOG IN AN HOUR AFTER INSTILLING 3 CC OF HOT WATER IN THE GT.
[2019-10-28 22:02] VITALS: BP_SYST 134
[2019-10-28] MEDS: INSULIN GLARGINE 100 UNITS/ML 10 ML VIAL SUBCUT SCH (22:17)
[2019-10-28] MEDS: ACETAMINOPHEN 325 MG TABLET PO PRN (22:18)
--- NOTE | 2019-10-28 22:18 | NUR ---
GT ABLE TO DE CLOG GT AT THIS TIME. DUE MEDICATIONS GIVEN.
[2019-10-28] MEDS ORDERED: HEPARIN SODIUM,PORCINE 5000 UNITS/ML VIAL SUBCUT ONE (22:30)
--- NOTE | 2019-10-28 23:00 | NUR ---
HD CARE HEMODIALYSIS COMPLETED AND TOLERATED. HS CARE DONE ALL LINENS CHANGED.
[2019-10-28] MEDS: NACL 0.9% 1,000 ML IV SCH (23:57)
[2019-10-29 00:35] VITALS: BP_SYST 142
--- NOTE | 2019-10-29 02:00 | NUR ---
WOUND CARE WOUND CARE DONE TO SACRAL/BUTTOCKS SCAR AND UPPER BACK WOUNDS.
[2019-10-29] MEDS: DIPHENHYDRAMINE INJ 50 MG/ML VIAL IVP PRN (02:12)
--- NOTE | 2019-10-29 04:00 | NUR ---
ROUNDS PATIENT RESTING IN BED. NO DISTRESS NOTED.
[2019-10-29] MEDS: INSULIN LISPRO SLIDING SCALE 100 UNITS/ML VIAL (humaLOG) SUBCUT PRN ×2 (05:54→12:46)
--- NOTE | 2019-10-29 06:53 | NUR ---
CLOSING NOTES GT FEEDING TOLERATED NO RESIDUAL TUBE FLUSHING WELL. GT DRESSING CHANGED. PATIENT NEEDS ATTENDED. BED IN LOWEST LOCKED POSITION. HOB ELEVATED 30 DEGREES.
--- NOTE | 2019-10-29 07:45 | NUR ---
Initial notes: Patient is awake and alert, he stated he was cold and a warm blanket was provided for comfort. Bed is low, locked, 2 side rails up and call light within reach. Bandar PICKETT
[2019-10-29 07:56] LABS: ANION GAP 8 (5-15); CALCIUM 8.1 mg/dL (8.4-11.0); CHLORIDE 102 mmol/L (98-107); CREATININE 1.75 mg/dL (0.55-1.30); GLUCOSE 192 mg/dL (70-99); POTASSIUM 3.4 mmol/L (3.5-5.1); SODIUM SERUM 137 mmol/L (136-145); UREA NITROGEN, BLOOD 24 mg/dL (8-21)
[2019-10-29] MEDS: levETIRAcetam 500 MG TABLET GT SCH (09:14)
[2019-10-29] MEDS: DOCUSATE SODIUM 100 MG CAPSULE PO SCH (09:14)
[2019-10-29] MEDS: ASPIRIN 81 MG TAB.CHEW GT SCH (09:14)
[2019-10-29] MEDS: SEVELAMER CARBONATE 800 MG TABLET PO SCH ×2 (09:14→12:45)
[2019-10-29] MEDS: FERROUS SULFATE 300 MG/5 ML UDC GT SCH (09:14)
[2019-10-29] MEDS: GABAPENTIN 100 MG CAPSULE GT SCH (09:15)
[2019-10-29] MEDS: ATORVASTATIN 10 MG TABLET GT SCH (09:15)
[2019-10-29] MEDS: PANTOPRAZOLE SODIUM 40 MG TAB PO SCH (09:15)
[2019-10-29] MEDS: CITALOPRAM HYDROBROMIDE 20 MG TABLET PO SCH (09:16)
[2019-10-29] MEDS: TRIAMCINOLONE ACETONIDE 0.1% 15 GM OINT..GM. TP SCH (09:24)
[2019-10-29] MEDS: FINASTERIDE 5 MG TABLET (PROSCAR) GT SCH (09:24)
--- NOTE | 2019-10-29 09:59 | NUR ---
Patients G-TUBE was clogged this am, per GI new PEG needed, hospital needed a special order. I changed the eve valve and was able to administer his meds via g-tube effortlessly. GI and Clinical Geneticist cleared to discharge patient. Bed is low, locked, 2 side rails up and call light within reach. Bandar PICKETT
[2019-10-29 10:10] VITALS: BP_SYST 171
--- NOTE | 2019-10-29 11:35 | NUR ---
Changed picc line dressing and took pictures of wounds. Bed is low, locked, 2 side rails up and call light is within reach. Bandar PICKETT
[2019-10-29] MEDS ORDERED: POTASSIUM CHLORIDE 20 MEQ/PKT PACKET PO ONE (11:45)
[2019-10-29 14:46] LABS: CREATININE, URINE 53.2 mg/dL
--- NOTE | 2019-10-29 15:00 | NUR ---
Dialysis set-up notes: Patient had dialysis yesterday, 3L extracted. mentioned he needed outpatient dialysis but no order was in the computer when patient was D/C. 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 I called Niesha from [facility] to inform that will take care of the outpatient dialysis. I also called Kelsy in Case Management and explained what had indicated. Patient has been endorsed to Niesha from [facility] at [phone]. Colette PICKETT
== END 2019-10-29 14:20 | DRG 871 ==
LOC: SED 15:53 → STU 18:41 → SIC 10-20 11:40 → STU 10-24 15:47
PROVIDERS: ADMIT Family Medicine; ATTEND Internal Medicine
PROC: 02HV33Z Insertion of Infusion Device into Superior Vena Cava, Percutaneous Approach (ICD-10-PCS; principal; 2019-10-22)
PROC: B548ZZA Ultrasonography of Superior Vena Cava, Guidance (ICD-10-PCS; 2019-10-22)
PROC: 5A1D70Z Performance of Urinary Filtration, Intermittent, Less than 6 Hours Per Day (ICD-10-PCS; 2019-10-22)
PROC: 02PYX3Z Removal of Infusion Device from Great Vessel, External Approach (ICD-10-PCS; 2019-10-23)
PROC: 02HV33Z Insertion of Infusion Device into Superior Vena Cava, Percutaneous Approach (ICD-10-PCS; 2019-10-23)
PROC: B548ZZA Ultrasonography of Superior Vena Cava, Guidance (ICD-10-PCS; 2019-10-23)
PROC: 5A1D70Z Performance of Urinary Filtration, Intermittent, Less than 6 Hours Per Day (ICD-10-PCS; 2019-10-23)
PROC: 30233N1 Transfusion of Nonautologous Red Blood Cells into Peripheral Vein, Percutaneous Approach (ICD-10-PCS; 2019-10-23)
PROC: 5A1D70Z Performance of Urinary Filtration, Intermittent, Less than 6 Hours Per Day (ICD-10-PCS; 2019-10-25)
PROC: 5A1D70Z Performance of Urinary Filtration, Intermittent, Less than 6 Hours Per Day (ICD-10-PCS; 2019-10-28)
DX: A41.9 Sepsis, unspecified organism (principal); J69.0 Pneumonitis due to inhalation of food and vomit; R65.21 Severe sepsis with septic shock; G93.41 Metabolic encephalopathy; N18.6 End stage renal disease; N39.0 Urinary tract infection, site not specified; I12.0 Hypertensive chronic kidney disease with stage 5 chronic kidney disease or end stage renal disease; I48.20 Chronic atrial fibrillation, unspecified; I69.354 Hemiplegia and hemiparesis following cerebral infarction affecting left non-dominant side; K94.23 Gastrostomy malfunction; N17.9 Acute kidney failure, unspecified; E11.22 Type 2 diabetes mellitus with diabetic chronic kidney disease; E87.5 Hyperkalemia; E87.6 Hypokalemia; D63.1 Anemia in chronic kidney disease; E11.42 Type 2 diabetes mellitus with diabetic polyneuropathy; E11.51 Type 2 diabetes mellitus with diabetic peripheral angiopathy without gangrene; E78.5 Hyperlipidemia, unspecified; G40.909 Epilepsy, unspecified, not intractable, without status epilepticus; I25.10 Atherosclerotic heart disease of native coronary artery without angina pectoris; I44.30 Unspecified atrioventricular block; K21.9 Gastro-esophageal reflux disease without esophagitis; K76.9 Liver disease, unspecified; Y83.8 Other surgical procedures as the cause of abnormal reaction of the patient, or of later complication, without mention of misadventure at the time of the procedure; Y82.8 Other medical devices associated with adverse incidents; N40.0 Benign prostatic hyperplasia without lower urinary tract symptoms; R13.10 Dysphagia, unspecified; Z74.01 Bed confinement status; Z99.2 Dependence on renal dialysis
CPT/HCPCS: 36415; 71045; 76770; 80048; 80053; 80061; 81000-TC; 82043; 82150-TC; 82570; 82962; 83036; 83605; 83690-TC; 83735-TC; 83874; 83880; 83935-TC; 84100-TC; 84302-TC; 84439; 84443-TC; 84560; 85025; 85610-TC; 85651-TC; 85730-TC; 86705; 86709; 86803; 86886; 86900; 86901; 86920; 87040-TC; 87081; 87086; 90935; 90937; 92610-GN; 93005; 93306; 96374; 96375; 99285; C1751; C1769; G0378; J0360; J0461; J0696; J0885; J1200; J1265; J1644; J1815; J2060; J2270; J2405; J2997; J3480; J3490; J7030; J7050; J7060; P9021

== ENCOUNTER 2019-11-20 08:42 | Inpatient (IN) | payer OTHER, MEDICAID, SELFPAY ==
[~2019-11-20] VITALS: Ht 157.5 cm; Wt 74.8 kg
[2019-11-20 08:42] VITALS: BP_SYST 135
[~2019-11-20 08:42] MED LIST: AMIN30LI2 GT; ANT30 PO; ASPI-1077 GT; ATOR10TA68 GT; CAT.1 GT; DILT90CA GT; ESCI10TA GT; FER300L GT; FINA5TAB3 GT; GABA-529 GT; GLIP10TA11 GT; HYDR-4272 GT; HYDR59LO13 TP; INSU100V11 SQ; IPRA4AER INH; LEVE500T9 GT; MELA3TAB64 GT; NITSL SL; OMEP-268 GT; SSNOVOLOG SUBCUT
[2019-11-20 09:45] LABS: HEMATOCRIT 33.6 % (36-54); HEMOGLOBIN 11.2 g/dL (14.0-18.0); MEAN CORPUSCULAR HEMOGLOBIN 31 pg (27-31); MEAN CORPUSCULAR HGB CONC 33 % (32-36); MEAN CORPUSCULAR VOLUME 95 fL (79.0-98.0); PLATELET COUNT (AUTO) 228 K/uL (130-430); RED BLOOD CELL COUNT(AUTO) 3.55 MIL/uL (4.2-6.2); RED CELL DISTRIBUTION WIDTH 15.1 % (9.0-15.0); WHITE BLOOD COUNT (AUTO) 19.8 K/uL (4.8-10.8)
[2019-11-20 09:52] LABS: ANION GAP 9 (5-15); CALCIUM 8.6 mg/dL (8.4-11.0); CHLORIDE 94 mmol/L (98-107); CREATININE 2.76 mg/dL (0.55-1.30); GLUCOSE 343 mg/dL (70-99); SODIUM SERUM 129 mmol/L (136-145); UREA NITROGEN, BLOOD 29 mg/dL (8-21)
[2019-11-20 09:56] LABS: POTASSIUM 2.5 mmol/L (3.5-5.1)
[2019-11-20 10:06] LABS: ALANINE AMINOTRANSFERASE 77 U/L (12-78); ALBUMIN 2.8 g/dL (3.4-4.8); ASPARTATE AMINOTRANSFERASE 28 U/L (10-37); C-REACTIVE PROTEIN QUANT 1.2 mg/dL (0-0.5); LACTATE DEHYDROGENASE 159 U/L (85-227); TOTAL BILIRUBIN 0.5 mg/dL (0.0-1.0)
[2019-11-20] MEDS ORDERED: AZITHROMYCIN 500 MG in NS 250 ML IV ONE (10:15)
[2019-11-20] MEDS ORDERED: INSULIN REGULAR, HUMAN 10 UNITS/0.1 ML INJ IVP ONE (10:15)
[2019-11-20] MEDS ORDERED: KCL 40mEq in D5/0.45NS 1000 mL 1,000 ML IV ONE (10:15)
[2019-11-20] MEDS ORDERED: cefTRIAXone 1 GM IVPB PREMIX 50 ML IV ONE (10:15)
[2019-11-20 10:21] LABS: ATYPICAL LYMPHOCYTES % 0 % (0-0); BAND % (MANUAL) 23 % (0-6); BASOPHILS % (MANUAL) 0 % (0-2); EOSINOPHILS % (MANUAL) 0 % (0-7); LYMPHOCYTES % (MANUAL) 4 % (20-46); MONOCYTES % (MANUAL) 3 % (0-11)
[2019-11-20] MEDS ORDERED: AZITHROMYCIN 500 MG/VIAL (ZITHROMAX) IV ONE (10:32)
[2019-11-20 10:52] LABS: INFLUENZA A&B ANTIGEN SCREEN NEGATIVE FOR A & B (NEGATIVE); RESPIRATORY SYNCYTIAL VIRUS NEGATIVE (NEGATIVE)
[2019-11-20] MEDS ORDERED: NACL 0.9% 2,500 ML IV ONE (11:00)
[2019-11-20] MEDS ORDERED: TYLL650 GT (11:06)
[2019-11-20] MEDS ORDERED: INSULIN REGULAR, HUMAN 100 UNITS/ML, 10 ML VIAL (humuLIN R) SUBCUT PRN (12:00)
[2019-11-20 12:14] LABS: BILIRUBIN,URINE NEGATIVE (NEGATIVE); GLUCOSE,URINE 3+ (NEGATIVE); KETONES,URINE NEGATIVE (NEGATIVE); LEUKOCYTE ESTERASE ,URINE NEGATIVE (NEGATIVE); NITRITE, URINE NEGATIVE (NEGATIVE); PROTEIN URINE 3+ (NEGATIVE); UROBILINOGEN,URINE 0.2 (0.2-1.0)
[2019-11-20 12:16] LABS: BLOOD, URINE TRACE (NEGATIVE); CLARITY/URINE HAZY (CLEAR); COLOR,URINE YELLOW (YELLOW)
[2019-11-20 13:50] VITALS: BP_SYST 110
[2019-11-20] MEDS: NORMAL SALINE 5 ML DISP.SYRIN IVF SCH ×2 (14:52→21:22)
[2019-11-20] MEDS: INSULIN REGULAR, HUMAN 100 UNITS/ML, 10 ML VIAL (humuLIN R) SUBCUT SCH ×2 (18:00→21:21)
[2019-11-20 20:00] VITALS: BP_SYST 132
[2019-11-20] MEDS: ATORVASTATIN 10 MG TABLET GT SCH (21:15)
[2019-11-20] MEDS ORDERED: ACETAMINOPHEN 650 MG/20.3 ML UDC GT PRN (21:15)
[2019-11-20] MEDS ORDERED: IPRATROPIUM/ALBUTEROL SULFATE 120 PUFFS/4 GM INH INH SCH (21:15)
[2019-11-20] MEDS: FINASTERIDE 5 MG TABLET (PROSCAR) GT SCH (21:15)
[2019-11-20] MEDS: ASPIRIN 81 MG TAB.CHEW GT SCH (21:15)
[2019-11-20] MEDS: FERROUS SULFATE 300 MG/5 ML UDC GT SCH (21:15)
[2019-11-20] MEDS ORDERED: cloNIDine HCL 0.1 MG TABLET GT PRN (21:15)
[2019-11-20] MEDS: GABAPENTIN 100 MG CAPSULE GT SCH (21:15)
[2019-11-20] MEDS: levETIRAcetam 500 MG TABLET GT SCH (21:15)
[2019-11-20] MEDS: PIPERACILLIN/TAZO 2.25G/DEX-IS 50 ML IV SCH (21:21)
[2019-11-21] VITALS: BP_SYST 127
[2019-11-21] MEDS ORDERED: VANCOMYCIN HCL 1 GM/NS PREMIX 250 ML IV ONE (00:15)
[2019-11-21] MEDS ORDERED: VANCOMYCIN HCL 1000 MG/VIAL IV ONE (00:46)
[2019-11-21] MEDS: IPRATROPIUM/ALBUTEROL SULFATE 3 ML AMPUL.NEB (DUONEB) INH SCH ×4 (01:00→19:00)
[2019-11-21] MEDS: PIPERACILLIN/TAZO 2.25G/DEX-IS 50 ML IV SCH ×3 (06:00→22:31)
[2019-11-21] MEDS: NORMAL SALINE 5 ML DISP.SYRIN IVF SCH ×3 (06:01→22:07)
[2019-11-21] MEDS: INSULIN REGULAR, HUMAN 100 UNITS/ML, 10 ML VIAL (humuLIN R) SUBCUT SCH ×4 (06:03→21:46)
[2019-11-21 06:42] LABS: BASOPHILS # (AUTO) 0.1 K/uL (0.0-0.2); BASOPHILS % (AUTO) 0.5 % (0.0-2.0); EOSINOPHILS # (AUTO) 0.1 K/uL (0.0-0.4); EOSINOPHILS % (AUTO) 0.4 % (0.0-4.0); HEMATOCRIT 30.9 % (36-54); HEMOGLOBIN 10.2 g/dL (14.0-18.0); LYMPHOCYTES # (AUTO) 0.7 K/uL (1.0-5.5); LYMPHOCYTES % (AUTO) 3.9 % (20.5-51.5); MEAN CORPUSCULAR HEMOGLOBIN 31 pg (27-31); MEAN CORPUSCULAR HGB CONC 33 % (32-36); MEAN CORPUSCULAR VOLUME 95 fL (79.0-98.0); MONOCYTES # (AUTO) 0.6 K/uL (0.0-1.0); MONOCYTES % (AUTO) 3.5 % (1.7-9.3); NEUTROPHILS # (AUTO) 16.4 K/uL (1.8-7.7); NEUTROPHILS % (AUTO) 91.7 % (40.0-70.0); PLATELET COUNT (AUTO) 214 K/uL (130-430); RED BLOOD CELL COUNT(AUTO) 3.25 MIL/uL (4.2-6.2); RED CELL DISTRIBUTION WIDTH 15.7 % (9.0-15.0); WHITE BLOOD COUNT (AUTO) 17.9 K/uL (4.8-10.8)
[2019-11-21 07:21] LABS: ALANINE AMINOTRANSFERASE 37 U/L (12-78); ALBUMIN 2.4 g/dL (3.4-4.8); ANION GAP 5 (5-15); ASPARTATE AMINOTRANSFERASE 22 U/L (10-37); CALCIUM 8.2 mg/dL (8.4-11.0); CHLORIDE 101 mmol/L (98-107); CREATININE 3.02 mg/dL (0.55-1.30); GLUCOSE 353 mg/dL (70-99); POTASSIUM 3.5 mmol/L (3.5-5.1); SODIUM SERUM 135 mmol/L (136-145); TOTAL BILIRUBIN 0.6 mg/dL (0.0-1.0); UREA NITROGEN, BLOOD 31 mg/dL (8-21)
[2019-11-21] MEDS: GABAPENTIN 100 MG CAPSULE GT SCH ×2 (09:00→20:14)
[2019-11-21] MEDS: ATORVASTATIN 10 MG TABLET GT SCH (09:00)
[2019-11-21] MEDS ORDERED: ATORVASTATIN 10 MG TABLET GT ONE (09:00)
[2019-11-21] MEDS: ASPIRIN 81 MG TAB.CHEW GT SCH (09:00)
[2019-11-21] MEDS: FINASTERIDE 5 MG TABLET (PROSCAR) GT SCH (09:00)
[2019-11-21] MEDS ORDERED: CEFTRIAXONE SOD 1 GM/ D5W 50 ML IV SCH ×2 (09:00)
[2019-11-21] MEDS: FERROUS SULFATE 300 MG/5 ML UDC GT SCH (09:00)
[2019-11-21] MEDS ORDERED: cefTRIAXone 1 GM VIAL IM SCH (09:00)
[2019-11-21] MEDS: levETIRAcetam 500 MG TABLET GT SCH ×2 (09:00→20:13)
[2019-11-21] MEDS ORDERED: ASPIRIN 81 MG TAB.CHEW GT ONE (09:00)
[2019-11-21 09:10] VITALS: BP_SYST 144
[2019-11-21] MEDS ORDERED: levETIRAcetam 500 MG TABLET GT ONE (09:15)
[2019-11-21] MEDS ORDERED: FERROUS SULFATE 300 MG/5 ML UDC GT ONE (09:15)
[2019-11-21] MEDS ORDERED: FINASTERIDE 5 MG TABLET (PROSCAR) GT ONE (09:15)
[2019-11-21] MEDS ORDERED: GABAPENTIN 100 MG CAPSULE GT ONE (09:15)
[2019-11-21] MEDS ORDERED: levETIRAcetam 500 MG TABLET ONE (09:24)
[2019-11-21] MEDS: AZITHROMYCIN 500 MG in NS 250 ML IV SCH (09:38)
[2019-11-21 12:00] VITALS: BP_SYST 144
[2019-11-21] MEDS ORDERED: IPRATROPIUM/ALBUTEROL SULFATE 3 ML AMPUL.NEB (DUONEB) INH SCH (14:00)
[2019-11-21 16:15] VITALS: BP_SYST 154
[2019-11-21] MEDS ORDERED: ENOXAPARIN SODIUM 80 MG/0.8 ML SYRINGE SQ ONE (16:45)
[2019-11-21 17:02] VITALS: BP_SYST 154
[2019-11-21] MEDS ORDERED: INSULIN REGULAR, HUMAN 100 UNITS/ML, 10 ML VIAL SUBCUT ONE (17:15)
[2019-11-21 20:00] VITALS: BP_SYST 122
[2019-11-21] MEDS: CITALOPRAM HYDROBROMIDE 20 MG TABLET GT SCH (20:14)
[2019-11-21] MEDS: LINEZOLID 300 ML IV SCH (20:17)
[2019-11-21] MEDS ORDERED: INSULIN GLARGINE 100 UNITS/ML 10 ML VIAL SQ SCH (21:00)
[2019-11-22] VITALS: BP_SYST 128
[2019-11-22] MEDS ORDERED: VANCOMYCIN HCL 1,000 MG in NS 250 ML IV SCH ×2
[2019-11-22] MEDS: IPRATROPIUM/ALBUTEROL SULFATE 3 ML AMPUL.NEB (DUONEB) INH SCH ×4 (01:00→19:00)
[2019-11-22] MEDS: PIPERACILLIN/TAZO 2.25G/DEX-IS 50 ML IV SCH ×3 (05:57→22:04)
[2019-11-22] MEDS: INSULIN REGULAR, HUMAN 100 UNITS/ML, 10 ML VIAL (humuLIN R) SUBCUT SCH ×4 (06:22→22:00)
[2019-11-22] MEDS: NORMAL SALINE 5 ML DISP.SYRIN IVF SCH ×3 (06:35→22:01)
[2019-11-22 07:24] LABS: BASOPHILS % (AUTO) 0.4 % (0.0-2.0); EOSINOPHILS # (AUTO) 0.3 K/uL (0.0-0.4); EOSINOPHILS % (AUTO) 2.4 % (0.0-4.0); HEMATOCRIT 28.6 % (36-54); HEMOGLOBIN 9.5 g/dL (14.0-18.0); LYMPHOCYTES # (AUTO) 0.9 K/uL (1.0-5.5); MEAN CORPUSCULAR HEMOGLOBIN 32 pg (27-31); MEAN CORPUSCULAR HGB CONC 33 % (32-36); MEAN CORPUSCULAR VOLUME 95 fL (79.0-98.0); MONOCYTES # (AUTO) 0.5 K/uL (0.0-1.0); MONOCYTES % (AUTO) 4.2 % (1.7-9.3); NEUTROPHILS # (AUTO) 10.5 K/uL (1.8-7.7); PLATELET COUNT (AUTO) 206 K/uL (130-430); RED BLOOD CELL COUNT(AUTO) 3.01 MIL/uL (4.2-6.2); RED CELL DISTRIBUTION WIDTH 15.2 % (9.0-15.0); WHITE BLOOD COUNT (AUTO) 12.3 K/uL (4.8-10.8)
[2019-11-22 08:00] VITALS: BP_SYST 137
[2019-11-22 08:12] LABS: ANION GAP 9 (5-15); CALCIUM 8.7 mg/dL (8.4-11.0); CHLORIDE 97 mmol/L (98-107); CREATININE 3.65 mg/dL (0.55-1.30); SODIUM SERUM 132 mmol/L (136-145); UREA NITROGEN, BLOOD 41 mg/dL (8-21)
[2019-11-22] MEDS: FERROUS SULFATE 300 MG/5 ML UDC GT SCH (08:17)
[2019-11-22] MEDS: levETIRAcetam 500 MG TABLET GT SCH ×2 (08:17→21:00)
[2019-11-22] MEDS: ASPIRIN 81 MG TAB.CHEW GT SCH (08:17)
[2019-11-22] MEDS: ATORVASTATIN 10 MG TABLET GT SCH (08:18)
[2019-11-22] MEDS: LINEZOLID 300 ML IV SCH ×2 (08:18→21:33)
[2019-11-22] MEDS: GABAPENTIN 100 MG CAPSULE GT SCH ×2 (08:18→21:00)
[2019-11-22 08:21] LABS: GLUCOSE 446 mg/dL (70-99)
[2019-11-22] MEDS: ENOXAPARIN SODIUM 80 MG/0.8 ML SYRINGE SQ SCH (08:22)
[2019-11-22] MEDS: FINASTERIDE 5 MG TABLET (PROSCAR) GT SCH (08:22)
[2019-11-22 08:34] LABS: POTASSIUM 2.9 mmol/L (3.5-5.1)
[2019-11-22] MEDS ORDERED: KCL 40 mEq in 100 mL (PREMIX) 100 ML IV ONE (10:15)
[2019-11-22] MEDS: AZITHROMYCIN 500 MG in NS 250 ML IV SCH (10:27)
[2019-11-22 12:00] VITALS: BP_SYST 184
[2019-11-22] MEDS ORDERED: hydrALAZINE HCL 20 MG/ML VIAL IVP PRN (13:15)
[2019-11-22 16:00] VITALS: BP_SYST 171
[2019-11-22] MEDS ORDERED: HEPARIN SODIUM,PORCINE 5000 UNITS/ML VIAL SUBCUT ONE ×2 (18:15)
[2019-11-22] MEDS ORDERED: ALBUTEROL MDI INHALATION 8 GM INH INH PRN (18:30)
[2019-11-22] MEDS ORDERED: HEPARIN SODIUM,PORCINE 5000 UNITS/ML VIAL ONE (18:50)
[2019-11-22 20:00] VITALS: BP_SYST 132
[2019-11-22] MEDS: CITALOPRAM HYDROBROMIDE 20 MG TABLET GT SCH (21:00)
[2019-11-22] MEDS: INSULIN GLARGINE 100 UNITS/ML 10 ML VIAL SQ SCH (22:01)
[2019-11-23] VITALS: BP_SYST 126
[2019-11-23] MEDS ORDERED: VANCOMYCIN HCL 1,000 MG in NS 250 ML IV SCH ×2
[2019-11-23] MEDS: IPRATROPIUM/ALBUTEROL SULFATE 3 ML AMPUL.NEB (DUONEB) INH SCH ×4 (02:30→20:00)
[2019-11-23] MEDS: NORMAL SALINE 5 ML DISP.SYRIN IVF SCH ×3 (05:03→22:19)
[2019-11-23] MEDS: PIPERACILLIN/TAZO 2.25G/DEX-IS 50 ML IV SCH ×2 (05:03→14:00)
[2019-11-23] MEDS: INSULIN REGULAR, HUMAN 100 UNITS/ML, 10 ML VIAL (humuLIN R) SUBCUT SCH ×4 (06:16→22:39)
[2019-11-23 07:06] LABS: BASOPHILS # (AUTO) 0.1 K/uL (0.0-0.2); BASOPHILS % (AUTO) 0.7 % (0.0-2.0); EOSINOPHILS # (AUTO) 0.4 K/uL (0.0-0.4); EOSINOPHILS % (AUTO) 5.6 % (0.0-4.0); HEMATOCRIT 28.4 % (36-54); HEMOGLOBIN 9.6 g/dL (14.0-18.0); LYMPHOCYTES # (AUTO) 1.4 K/uL (1.0-5.5); MEAN CORPUSCULAR HEMOGLOBIN 32 pg (27-31); MEAN CORPUSCULAR HGB CONC 34 % (32-36); MEAN CORPUSCULAR VOLUME 94 fL (79.0-98.0); MONOCYTES # (AUTO) 0.5 K/uL (0.0-1.0); MONOCYTES % (AUTO) 6.4 % (1.7-9.3); NEUTROPHILS # (AUTO) 5.6 K/uL (1.8-7.7); NEUTROPHILS % (AUTO) 70.3 % (40.0-70.0); PLATELET COUNT (AUTO) 211 K/uL (130-430); RED BLOOD CELL COUNT(AUTO) 3.01 MIL/uL (4.2-6.2); RED CELL DISTRIBUTION WIDTH 15.3 % (9.0-15.0)
[2019-11-23 07:23] LABS: ANION GAP 7 (5-15); CALCIUM 8.1 mg/dL (8.4-11.0); CHLORIDE 101 mmol/L (98-107); CREATININE 2.37 mg/dL (0.55-1.30); GLUCOSE 193 mg/dL (70-99); POTASSIUM 3.1 mmol/L (3.5-5.1); SODIUM SERUM 137 mmol/L (136-145); UREA NITROGEN, BLOOD 24 mg/dL (8-21)
[2019-11-23 08:00] VITALS: BP_SYST 127
[2019-11-23] MEDS: FERROUS SULFATE 300 MG/5 ML UDC GT SCH (08:28)
[2019-11-23] MEDS: levETIRAcetam 500 MG TABLET GT SCH ×2 (08:28→22:15)
[2019-11-23] MEDS: GABAPENTIN 100 MG CAPSULE GT SCH ×2 (08:28→22:15)
[2019-11-23] MEDS: ASPIRIN 81 MG TAB.CHEW GT SCH (08:28)
[2019-11-23] MEDS: ATORVASTATIN 10 MG TABLET GT SCH (08:29)
[2019-11-23] MEDS: LINEZOLID 300 ML IV SCH (08:30)
[2019-11-23] MEDS: ENOXAPARIN SODIUM 80 MG/0.8 ML SYRINGE SQ SCH (08:31)
[2019-11-23] MEDS: FINASTERIDE 5 MG TABLET (PROSCAR) GT SCH (09:50)
[2019-11-23] MEDS: AZITHROMYCIN 500 MG in NS 250 ML IV SCH (10:22)
[2019-11-23 12:00] VITALS: BP_SYST 123
[2019-11-23 16:19] VITALS: BP_SYST 116
[2019-11-23] MEDS ORDERED: POTASSIUM CHLORIDE 20 MEQ TAB.PRT.SR PO ONE (17:00)
[2019-11-23] MEDS: metroNIDAZOLE 500 mg/NS 100 ML IV SCH (17:48)
[2019-11-23 20:00] VITALS: BP_SYST 145
[2019-11-23] MEDS: CITALOPRAM HYDROBROMIDE 20 MG TABLET GT SCH (22:15)
[2019-11-23] MEDS: INSULIN GLARGINE 100 UNITS/ML 10 ML VIAL SQ SCH (22:38)
[2019-11-24] VITALS (8 sets, daily range): BP systolic 113–163
[2019-11-24] MEDS: IPRATROPIUM/ALBUTEROL SULFATE 3 ML AMPUL.NEB (DUONEB) INH SCH ×4 (01:52→19:28)
[2019-11-24] MEDS: metroNIDAZOLE 500 mg/NS 100 ML IV SCH ×2 (05:30→17:04)
[2019-11-24] MEDS: NORMAL SALINE 5 ML DISP.SYRIN IVF SCH ×3 (05:31→21:20)
[2019-11-24] MEDS: INSULIN REGULAR, HUMAN 100 UNITS/ML, 10 ML VIAL (humuLIN R) SUBCUT SCH ×4 (05:34→20:54)
[2019-11-24 07:02] LABS: BASOPHILS % (AUTO) 0.6 % (0.0-2.0); EOSINOPHILS # (AUTO) 0.4 K/uL (0.0-0.4); EOSINOPHILS % (AUTO) 6.4 % (0.0-4.0); HEMATOCRIT 27.5 % (36-54); LYMPHOCYTES # (AUTO) 1.1 K/uL (1.0-5.5); LYMPHOCYTES % (AUTO) 17.6 % (20.5-51.5); MEAN CORPUSCULAR HEMOGLOBIN 31 pg (27-31); MEAN CORPUSCULAR HGB CONC 33 % (32-36); MEAN CORPUSCULAR VOLUME 95 fL (79.0-98.0); MONOCYTES # (AUTO) 0.6 K/uL (0.0-1.0); MONOCYTES % (AUTO) 9.2 % (1.7-9.3); NEUTROPHILS # (AUTO) 4.2 K/uL (1.8-7.7); NEUTROPHILS % (AUTO) 66.2 % (40.0-70.0); PLATELET COUNT (AUTO) 225 K/uL (130-430); RED CELL DISTRIBUTION WIDTH 15.3 % (9.0-15.0); WHITE BLOOD COUNT (AUTO) 6.3 K/uL (4.8-10.8)
[2019-11-24 07:30] LABS: ANION GAP 6 (5-15); CALCIUM 8.2 mg/dL (8.4-11.0); CHLORIDE 100 mmol/L (98-107); CREATININE 2.84 mg/dL (0.55-1.30); GLUCOSE 243 mg/dL (70-99); POTASSIUM 3.6 mmol/L (3.5-5.1); SODIUM SERUM 135 mmol/L (136-145); UREA NITROGEN, BLOOD 35 mg/dL (8-21)
[2019-11-24 08:35] LABS: PHOSPHORUS 0.8 mg/dL (2.7-4.5)
[2019-11-24] MEDS: ceFAZolin SODIUM 2 GM in D5W 100 ML IV SCH (09:00)
[2019-11-24] MEDS: AZITHROMYCIN 500 MG in NS 250 ML IV SCH (09:40)
[2019-11-24] MEDS: FERROUS SULFATE 300 MG/5 ML UDC GT SCH (12:42)
[2019-11-24] MEDS: ATORVASTATIN 10 MG TABLET GT SCH (12:44)
[2019-11-24] MEDS: GABAPENTIN 100 MG CAPSULE GT SCH ×2 (12:44→20:51)
[2019-11-24] MEDS: levETIRAcetam 500 MG TABLET GT SCH ×2 (12:44→20:51)
[2019-11-24] MEDS: ASPIRIN 81 MG TAB.CHEW GT SCH (12:44)
[2019-11-24] MEDS: cloNIDine HCL 0.1 MG TABLET PO PRN (12:44)
[2019-11-24] MEDS: FINASTERIDE 5 MG TABLET (PROSCAR) GT SCH (12:53)
[2019-11-24] MEDS ORDERED: K PHOS 15 MM in NS 250 ML IV ONE (14:00)
[2019-11-24] MEDS: CITALOPRAM HYDROBROMIDE 20 MG TABLET GT SCH (20:51)
[2019-11-24] MEDS: INSULIN GLARGINE 100 UNITS/ML 10 ML VIAL SQ SCH (20:55)
[2019-11-24] MEDS: DOCUSATE SODIUM 100 MG/10 ML UDC PO SCH (21:45)
[2019-11-24] MEDS ORDERED: BISACODYL 10 MG/SUPPOSITORY RC PRN (21:45)
[2019-11-25] MEDS: ACETAMINOPHEN 650 MG/20.3 ML UDC GT PRN ×2 (00:18→10:33)
[2019-11-25] MEDS: IPRATROPIUM/ALBUTEROL SULFATE 3 ML AMPUL.NEB (DUONEB) INH SCH ×4 (01:27→20:19)
[2019-11-25] MEDS: metroNIDAZOLE 500 mg/NS 100 ML IV SCH ×2 (05:17→17:40)
[2019-11-25] MEDS: NORMAL SALINE 5 ML DISP.SYRIN IVF SCH ×3 (05:22→22:40)
[2019-11-25] MEDS: INSULIN REGULAR, HUMAN 100 UNITS/ML, 10 ML VIAL (humuLIN R) SUBCUT SCH ×4 (05:27→21:10)
[2019-11-25 06:12] LABS: BASOPHILS % (AUTO) 0.7 % (0.0-2.0); EOSINOPHILS # (AUTO) 0.4 K/uL (0.0-0.4); EOSINOPHILS % (AUTO) 6.3 % (0.0-4.0); HEMOGLOBIN 8.6 g/dL (14.0-18.0); LYMPHOCYTES # (AUTO) 1.6 K/uL (1.0-5.5); LYMPHOCYTES % (AUTO) 27.3 % (20.5-51.5); MEAN CORPUSCULAR HEMOGLOBIN 31 pg (27-31); MEAN CORPUSCULAR HGB CONC 33 % (32-36); MEAN CORPUSCULAR VOLUME 95 fL (79.0-98.0); MONOCYTES # (AUTO) 0.5 K/uL (0.0-1.0); MONOCYTES % (AUTO) 8.6 % (1.7-9.3); NEUTROPHILS # (AUTO) 3.3 K/uL (1.8-7.7); NEUTROPHILS % (AUTO) 57.1 % (40.0-70.0); PLATELET COUNT (AUTO) 235 K/uL (130-430); RED BLOOD CELL COUNT(AUTO) 2.75 MIL/uL (4.2-6.2); WHITE BLOOD COUNT (AUTO) 5.8 K/uL (4.8-10.8)
[2019-11-25 06:26] LABS: ANION GAP 8 (5-15); CALCIUM 7.7 mg/dL (8.4-11.0); CHLORIDE 97 mmol/L (98-107); CREATININE 2.41 mg/dL (0.55-1.30); GLUCOSE 258 mg/dL (70-99); PHOSPHORUS 1.9 mg/dL (2.7-4.5); POTASSIUM 3.3 mmol/L (3.5-5.1); SODIUM SERUM 131 mmol/L (136-145); UREA NITROGEN, BLOOD 30 mg/dL (8-21)
[2019-11-25 07:49] VITALS: BP_SYST 133
[2019-11-25] MEDS ORDERED: GASTROGRAFIN 120 ML ONE (08:56)
[2019-11-25] MEDS ORDERED: POTASSIUM CHLORIDE 20 MEQ/PKT PACKET PO ONE (10:00)
[2019-11-25] MEDS: ceFAZolin SODIUM 2 GM in D5W 100 ML IV SCH (10:28)
[2019-11-25] MEDS: GABAPENTIN 100 MG CAPSULE GT SCH ×2 (10:31→21:04)
[2019-11-25] MEDS: ASPIRIN 81 MG TAB.CHEW GT SCH (10:31)
[2019-11-25] MEDS: levETIRAcetam 500 MG TABLET GT SCH ×2 (10:31→21:03)
[2019-11-25] MEDS: ATORVASTATIN 10 MG TABLET GT SCH (10:31)
[2019-11-25] MEDS: DOCUSATE SODIUM 100 MG/10 ML UDC PO SCH ×2 (10:33→10:44)
[2019-11-25] MEDS: FERROUS SULFATE 300 MG/5 ML UDC GT SCH (10:44)
[2019-11-25] MEDS: FINASTERIDE 5 MG TABLET (PROSCAR) GT SCH (10:45)
[2019-11-25] MEDS: AZITHROMYCIN 500 MG in NS 250 ML IV SCH (10:56)
[2019-11-25 12:00] VITALS: BP_SYST 172
[2019-11-25] MEDS ORDERED: K PHOS 15 MM in NS 250 ML IV ONE (12:15)
[2019-11-25 17:02] VITALS: BP_SYST 146
[2019-11-25 20:00] VITALS: BP_SYST 173
[2019-11-25] MEDS: INSULIN GLARGINE 100 UNITS/ML 10 ML VIAL SQ SCH (21:00)
[2019-11-25] MEDS: cloNIDine HCL 0.1 MG TABLET PO PRN (21:03)
[2019-11-25] MEDS: CITALOPRAM HYDROBROMIDE 20 MG TABLET GT SCH (21:04)
[2019-11-25] MEDS: traMADol HCL HCL 50 MG TABLET (ULTRAM) GT PRN (21:05)
[2019-11-26] MEDS: IPRATROPIUM/ALBUTEROL SULFATE 3 ML AMPUL.NEB (DUONEB) INH SCH ×4 (00:37→19:00)
[2019-11-26 00:41] VITALS: BP_SYST 147
[2019-11-26 06:23] LABS: CALCIUM 7.7 mg/dL (8.4-11.0); CHLORIDE 105 mmol/L (98-107); CREATININE 2.77 mg/dL (0.55-1.30); GLUCOSE 267 mg/dL (70-99); PHOSPHORUS 3.1 mg/dL (2.7-4.5); SODIUM SERUM 138 mmol/L (136-145); UREA NITROGEN, BLOOD 35 mg/dL (8-21)
[2019-11-26 06:28] LABS: ANION GAP 7 (5-15)
[2019-11-26] MEDS: NORMAL SALINE 5 ML DISP.SYRIN IVF SCH ×3 (06:28→21:43)
[2019-11-26] MEDS: INSULIN REGULAR, HUMAN 100 UNITS/ML, 10 ML VIAL (humuLIN R) SUBCUT SCH ×4 (06:41→21:57)
[2019-11-26] MEDS: metroNIDAZOLE 500 mg/NS 100 ML IV SCH ×2 (06:45→18:10)
[2019-11-26 08:09] VITALS: BP_SYST 140
[2019-11-26] MEDS: ATORVASTATIN 10 MG TABLET GT SCH (09:01)
[2019-11-26] MEDS: levETIRAcetam 500 MG TABLET GT SCH ×2 (09:01→21:42)
[2019-11-26] MEDS: ASPIRIN 81 MG TAB.CHEW GT SCH (09:01)
[2019-11-26] MEDS: GABAPENTIN 100 MG CAPSULE GT SCH ×2 (09:02→21:42)
[2019-11-26] MEDS: FERROUS SULFATE 300 MG/5 ML UDC GT SCH (09:13)
[2019-11-26] MEDS: FINASTERIDE 5 MG TABLET (PROSCAR) GT SCH (09:13)
[2019-11-26] MEDS: ceFAZolin SODIUM 2 GM in D5W 100 ML IV SCH (09:18)
[2019-11-26 12:45] VITALS: BP_SYST 143
[2019-11-26] MEDS ORDERED: HEPARIN SODIUM,PORCINE 5000 UNITS/ML VIAL IV ONE (13:45)
[2019-11-26] MEDS ORDERED: HEPARIN SODIUM,PORCINE 5000 UNITS/ML VIAL SUBCUT ONE (16:00)
[2019-11-26] MEDS ORDERED: HEPARIN SODIUM,PORCINE 5000 UNITS/ML VIAL ONE (16:16)
[2019-11-26 16:20] VITALS: BP_SYST 181
[2019-11-26] MEDS: CITALOPRAM HYDROBROMIDE 20 MG TABLET GT SCH (21:42)
[2019-11-26] MEDS: traMADol HCL HCL 50 MG TABLET (ULTRAM) GT PRN (21:43)
[2019-11-26] MEDS: INSULIN GLARGINE 100 UNITS/ML 10 ML VIAL SQ SCH (21:58)
[2019-11-27 00:41] VITALS: BP_SYST 162
[2019-11-27] MEDS: IPRATROPIUM/ALBUTEROL SULFATE 3 ML AMPUL.NEB (DUONEB) INH SCH ×3 (01:06→19:47)
[2019-11-27] MEDS: metroNIDAZOLE 500 mg/NS 100 ML IV SCH ×2 (05:36→17:34)
[2019-11-27] MEDS: NORMAL SALINE 5 ML DISP.SYRIN IVF SCH ×3 (05:36→20:53)
[2019-11-27] MEDS: INSULIN REGULAR, HUMAN 100 UNITS/ML, 10 ML VIAL (humuLIN R) SUBCUT SCH ×4 (05:50→20:51)
[2019-11-27 08:00] VITALS: BP_SYST 120
[2019-11-27] MEDS: ATORVASTATIN 10 MG TABLET GT SCH (09:23)
[2019-11-27] MEDS: ceFAZolin SODIUM 2 GM in D5W 100 ML IV SCH (09:23)
[2019-11-27] MEDS: FERROUS SULFATE 300 MG/5 ML UDC GT SCH (09:23)
[2019-11-27] MEDS: DOCUSATE SODIUM 100 MG/10 ML UDC PO SCH (09:24)
[2019-11-27] MEDS: levETIRAcetam 500 MG TABLET GT SCH ×2 (09:24→20:47)
[2019-11-27] MEDS: ASPIRIN 81 MG TAB.CHEW GT SCH (09:24)
[2019-11-27] MEDS: traMADol HCL HCL 50 MG TABLET (ULTRAM) GT PRN (09:25)
[2019-11-27] MEDS: GABAPENTIN 100 MG CAPSULE GT SCH ×2 (09:25→20:48)
[2019-11-27] MEDS: FINASTERIDE 5 MG TABLET (PROSCAR) GT SCH (09:27)
[2019-11-27] MEDS: cloNIDine HCL 0.1 MG TABLET PO PRN (11:11)
[2019-11-27] MEDS ORDERED: HEPARIN SODIUM,PORCINE 5000 UNITS/ML VIAL MC ONE (11:30)
[2019-11-27 12:44] VITALS: BP_SYST 177
[2019-11-27 16:28] VITALS: BP_SYST 147
[2019-11-27 16:38] VITALS: BP_SYST 147
[2019-11-27 20:00] VITALS: BP_SYST 157
[2019-11-27] MEDS: CITALOPRAM HYDROBROMIDE 20 MG TABLET GT SCH (20:48)
[2019-11-27] MEDS: INSULIN GLARGINE 100 UNITS/ML 10 ML VIAL SQ SCH (20:52)
[2019-11-28] MEDS: traMADol HCL HCL 50 MG TABLET (ULTRAM) GT PRN ×2 (00:30→21:25)
[2019-11-28 00:35] VITALS: BP_SYST 151
[2019-11-28] MEDS: IPRATROPIUM/ALBUTEROL SULFATE 3 ML AMPUL.NEB (DUONEB) INH SCH ×4 (05:48→20:06)
[2019-11-28] MEDS: metroNIDAZOLE 500 mg/NS 100 ML IV SCH ×2 (06:10→17:24)
[2019-11-28] MEDS: NORMAL SALINE 5 ML DISP.SYRIN IVF SCH ×3 (06:10→21:43)
[2019-11-28] MEDS: INSULIN REGULAR, HUMAN 100 UNITS/ML, 10 ML VIAL (humuLIN R) SUBCUT SCH ×4 (06:13→21:28)
[2019-11-28 06:34] LABS: MEAN CORPUSCULAR HEMOGLOBIN 32 pg (27-31); MEAN CORPUSCULAR HGB CONC 34 % (32-36); MEAN CORPUSCULAR VOLUME 95 fL (79.0-98.0); PLATELET COUNT (AUTO) 272 K/uL (130-430); RED BLOOD CELL COUNT(AUTO) 2.26 MIL/uL (4.2-6.2); WHITE BLOOD COUNT (AUTO) 9.8 K/uL (4.8-10.8)
[2019-11-28 06:49] LABS: ANION GAP 7 (5-15); CALCIUM 8.1 mg/dL (8.4-11.0); CHLORIDE 103 mmol/L (98-107); CREATININE 2.76 mg/dL (0.55-1.30); GLUCOSE 116 mg/dL (70-99); POTASSIUM 3.9 mmol/L (3.5-5.1); SODIUM SERUM 136 mmol/L (136-145); UREA NITROGEN, BLOOD 52 mg/dL (8-21)
[2019-11-28 07:10] LABS: HEMATOCRIT 21.6 % (36-54); HEMOGLOBIN 7.3 g/dL (14.0-18.0)
[2019-11-28 08:00] VITALS: BP_SYST 157
[2019-11-28 08:14] LABS: BAND % (MANUAL) 4 % (0-6); BASOPHILS % (MANUAL) 0 % (0-2); EOSINOPHILS % (MANUAL) 3 % (0-7); LYMPHOCYTES % (MANUAL) 26 % (20-46); METAMYELOCYTES % 3 % (0-0); MONOCYTES % (MANUAL) 4 % (0-11); MYELOCYTES % 1 % (0-0)
[2019-11-28] MEDS: DOCUSATE SODIUM 100 MG/10 ML UDC PO SCH (08:37)
[2019-11-28] MEDS: FINASTERIDE 5 MG TABLET (PROSCAR) GT SCH (08:37)
[2019-11-28] MEDS: FERROUS SULFATE 300 MG/5 ML UDC GT SCH (08:37)
[2019-11-28] MEDS: ASPIRIN 81 MG TAB.CHEW GT SCH (08:38)
[2019-11-28] MEDS: GABAPENTIN 100 MG CAPSULE GT SCH ×2 (08:38→21:15)
[2019-11-28] MEDS: ATORVASTATIN 10 MG TABLET GT SCH (08:38)
[2019-11-28] MEDS: levETIRAcetam 500 MG TABLET GT SCH ×2 (08:38→21:15)
[2019-11-28] MEDS: ceFAZolin SODIUM 2 GM in D5W 100 ML IV SCH (08:38)
[2019-11-28] MEDS ORDERED: PANTOPRAZOLE SODIUM 40 MG/VIAL (PROTONIX) IVP ONE (09:30)
[2019-11-28 12:10] VITALS: BP_SYST 137
[2019-11-28 16:25] VITALS: BP_SYST 148
[2019-11-28] MEDS ORDERED: HEPARIN SODIUM,PORCINE 5000 UNITS/ML VIAL ONE (19:10)
[2019-11-28 20:00] VITALS: BP_SYST 157
[2019-11-28] MEDS: CITALOPRAM HYDROBROMIDE 20 MG TABLET GT SCH (21:15)
[2019-11-28] MEDS: INSULIN GLARGINE 100 UNITS/ML 10 ML VIAL SQ SCH (21:27)
[2019-11-28] MEDS ORDERED: HEPARIN SODIUM, PORCINE 10,000 UNITS/ 10 ML VIAL MC ONE ×2 (23:00)
[2019-11-28 23:42] VITALS: BP_SYST 138
[2019-11-29] MEDS: IPRATROPIUM/ALBUTEROL SULFATE 3 ML AMPUL.NEB (DUONEB) INH SCH ×4 (03:08→19:52)
[2019-11-29] MEDS: traMADol HCL HCL 50 MG TABLET (ULTRAM) GT PRN (06:21)
[2019-11-29] MEDS: metroNIDAZOLE 500 mg/NS 100 ML IV SCH ×2 (06:21→17:26)
[2019-11-29] MEDS: NORMAL SALINE 5 ML DISP.SYRIN IVF SCH ×3 (06:21→20:55)
[2019-11-29] MEDS: INSULIN REGULAR, HUMAN 100 UNITS/ML, 10 ML VIAL (humuLIN R) SUBCUT SCH ×4 (06:24→20:51)
[2019-11-29 07:10] LABS: BASOPHILS # (AUTO) 0.1 K/uL (0.0-0.2); BASOPHILS % (AUTO) 0.6 % (0.0-2.0); EOSINOPHILS # (AUTO) 0.3 K/uL (0.0-0.4); HEMATOCRIT 32.5 % (36-54); HEMOGLOBIN 10.8 g/dL (14.0-18.0); LYMPHOCYTES # (AUTO) 2.8 K/uL (1.0-5.5); LYMPHOCYTES % (AUTO) 24.8 % (20.5-51.5); MEAN CORPUSCULAR HEMOGLOBIN 32 pg (27-31); MEAN CORPUSCULAR HGB CONC 33 % (32-36); MEAN CORPUSCULAR VOLUME 95 fL (79.0-98.0); MONOCYTES # (AUTO) 0.7 K/uL (0.0-1.0); MONOCYTES % (AUTO) 6.1 % (1.7-9.3); NEUTROPHILS # (AUTO) 7.4 K/uL (1.8-7.7); NEUTROPHILS % (AUTO) 65.5 % (40.0-70.0); PLATELET COUNT (AUTO) 293 K/uL (130-430); RED BLOOD CELL COUNT(AUTO) 3.44 MIL/uL (4.2-6.2); RED CELL DISTRIBUTION WIDTH 15.3 % (9.0-15.0)
[2019-11-29 07:58] VITALS: BP_SYST 149
[2019-11-29 08:15] LABS: WHITE BLOOD COUNT (AUTO) 11.2 K/uL (4.8-10.8)
[2019-11-29] MEDS: levETIRAcetam 500 MG TABLET GT SCH ×2 (08:56→20:46)
[2019-11-29] MEDS: ASPIRIN 81 MG TAB.CHEW GT SCH (08:56)
[2019-11-29] MEDS: GABAPENTIN 100 MG CAPSULE GT SCH ×2 (08:56→20:45)
[2019-11-29] MEDS: ATORVASTATIN 10 MG TABLET GT SCH (08:56)
[2019-11-29] MEDS: FERROUS SULFATE 300 MG/5 ML UDC GT SCH (08:56)
[2019-11-29] MEDS: DOCUSATE SODIUM 100 MG/10 ML UDC PO SCH (08:57)
[2019-11-29] MEDS ORDERED: PANTOPRAZOLE SODIUM 40 MG/VIAL (PROTONIX) IVP SCH (09:00)
[2019-11-29] MEDS ORDERED: PANTOPRAZOLE SODIUM 40 MG/VIAL (PROTONIX) IVP ONE (09:00)
[2019-11-29] MEDS: FINASTERIDE 5 MG TABLET (PROSCAR) GT SCH (09:04)
[2019-11-29] MEDS: ceFAZolin SODIUM 2 GM in D5W 50 ML IV SCH (09:06)
[2019-11-29 12:24] VITALS: BP_SYST 142
[2019-11-29 16:07] VITALS: BP_SYST 143
[2019-11-29 20:15] VITALS: BP_SYST 134
[2019-11-29] MEDS: PANTOPRAZOLE SODIUM 40 MG/VIAL (PROTONIX) IVP SCH (20:45)
[2019-11-29] MEDS: CITALOPRAM HYDROBROMIDE 20 MG TABLET GT SCH (20:46)
[2019-11-29] MEDS: INSULIN GLARGINE 100 UNITS/ML 10 ML VIAL SQ SCH (20:53)
[2019-11-30] MEDS: IPRATROPIUM/ALBUTEROL SULFATE 3 ML AMPUL.NEB (DUONEB) INH SCH ×4 (00:03→19:48)
[2019-11-30 00:10] VITALS: BP_SYST 148
[2019-11-30] MEDS: INSULIN REGULAR, HUMAN 100 UNITS/ML, 10 ML VIAL (humuLIN R) SUBCUT SCH ×4 (05:24→21:30)
[2019-11-30] MEDS: NORMAL SALINE 5 ML DISP.SYRIN IVF SCH ×3 (05:27→21:27)
[2019-11-30] MEDS: metroNIDAZOLE 500 mg/NS 100 ML IV SCH (05:27)
[2019-11-30 06:05] LABS: BASOPHILS # (AUTO) 0.1 K/uL (0.0-0.2); BASOPHILS % (AUTO) 0.6 % (0.0-2.0); EOSINOPHILS # (AUTO) 0.3 K/uL (0.0-0.4); EOSINOPHILS % (AUTO) 3.1 % (0.0-4.0); HEMATOCRIT 25.5 % (36-54); HEMOGLOBIN 8.5 g/dL (14.0-18.0); LYMPHOCYTES # (AUTO) 1.7 K/uL (1.0-5.5); LYMPHOCYTES % (AUTO) 15.5 % (20.5-51.5); MEAN CORPUSCULAR HEMOGLOBIN 32 pg (27-31); MEAN CORPUSCULAR HGB CONC 33 % (32-36); MEAN CORPUSCULAR VOLUME 95 fL (79.0-98.0); MONOCYTES # (AUTO) 0.6 K/uL (0.0-1.0); MONOCYTES % (AUTO) 5.1 % (1.7-9.3); NEUTROPHILS # (AUTO) 8.5 K/uL (1.8-7.7); PLATELET COUNT (AUTO) 304 K/uL (130-430); RED CELL DISTRIBUTION WIDTH 15.5 % (9.0-15.0); WHITE BLOOD COUNT (AUTO) 11.2 K/uL (4.8-10.8)
[2019-11-30 06:48] LABS: NEUTROPHILS % (AUTO) 75.7 % (40.0-70.0)
[2019-11-30 07:10] VITALS: BP_SYST 148
[2019-11-30 08:00] VITALS: BP_SYST 120
[2019-11-30] MEDS ORDERED: HEPARIN SODIUM,PORCINE 5000 UNITS/ML VIAL SUBCUT SCH (10:45)
[2019-11-30] MEDS: ceFAZolin SODIUM 2 GM in D5W 50 ML IV SCH (10:45)
[2019-11-30] MEDS: DOCUSATE SODIUM 100 MG/10 ML UDC PO SCH (10:49)
[2019-11-30] MEDS: PANTOPRAZOLE SODIUM 40 MG/VIAL (PROTONIX) IVP SCH ×2 (10:49→21:25)
[2019-11-30] MEDS: ASPIRIN 81 MG TAB.CHEW GT SCH (10:49)
[2019-11-30] MEDS: FERROUS SULFATE 300 MG/5 ML UDC GT SCH (10:49)
[2019-11-30] MEDS: ATORVASTATIN 10 MG TABLET GT SCH (10:49)
[2019-11-30] MEDS: levETIRAcetam 500 MG TABLET GT SCH ×2 (10:50→21:25)
[2019-11-30] MEDS: GABAPENTIN 100 MG CAPSULE GT SCH ×2 (10:50→21:25)
[2019-11-30] MEDS: FINASTERIDE 5 MG TABLET (PROSCAR) GT SCH (10:54)
[2019-11-30 15:03] LABS: PROTHROMBIN TIME 10.4 SECS (9.5-12.5)
[2019-11-30] MEDS: traMADol HCL HCL 50 MG TABLET (ULTRAM) GT PRN (15:22)
[2019-11-30 16:37] VITALS: BP_SYST 101
[2019-11-30] MEDS ORDERED: metroNIDAZOLE 500 mg/NS 100 ML IV SCH (18:00)
[2019-11-30 20:00] VITALS: BP_SYST 132
[2019-11-30] MEDS: CITALOPRAM HYDROBROMIDE 20 MG TABLET GT SCH (21:25)
[2019-11-30] MEDS: INSULIN GLARGINE 100 UNITS/ML 10 ML VIAL SQ SCH (21:29)
[2019-11-30 21:57] VITALS: BP_SYST 132
[2019-12-01 00:50] VITALS: BP_SYST 120
[2019-12-01] MEDS: IPRATROPIUM/ALBUTEROL SULFATE 3 ML AMPUL.NEB (DUONEB) INH SCH ×2 (01:00→07:39)
[2019-12-01] MEDS: NORMAL SALINE 5 ML DISP.SYRIN IVF SCH (06:19)
[2019-12-01] MEDS: INSULIN REGULAR, HUMAN 100 UNITS/ML, 10 ML VIAL (humuLIN R) SUBCUT SCH (06:20)
[2019-12-01 07:22] LABS: BASOPHILS # (AUTO) 0.1 K/uL (0.0-0.2); BASOPHILS % (AUTO) 0.8 % (0.0-2.0); EOSINOPHILS # (AUTO) 0.4 K/uL (0.0-0.4); EOSINOPHILS % (AUTO) 3.5 % (0.0-4.0); HEMATOCRIT 23.4 % (36-54); HEMOGLOBIN 7.8 g/dL (14.0-18.0); LYMPHOCYTES % (AUTO) 26.6 % (20.5-51.5); MEAN CORPUSCULAR HEMOGLOBIN 32 pg (27-31); MEAN CORPUSCULAR HGB CONC 33 % (32-36); MEAN CORPUSCULAR VOLUME 96 fL (79.0-98.0); MONOCYTES # (AUTO) 0.7 K/uL (0.0-1.0); MONOCYTES % (AUTO) 6.1 % (1.7-9.3); NEUTROPHILS # (AUTO) 7.2 K/uL (1.8-7.7); PLATELET COUNT (AUTO) 294 K/uL (130-430); RED BLOOD CELL COUNT(AUTO) 2.44 MIL/uL (4.2-6.2); RED CELL DISTRIBUTION WIDTH 15.7 % (9.0-15.0); WHITE BLOOD COUNT (AUTO) 11.4 K/uL (4.8-10.8)
[2019-12-01 08:00] VITALS: BP_SYST 139
[2019-12-01] MEDS: FINASTERIDE 5 MG TABLET (PROSCAR) GT SCH (08:41)
[2019-12-01] MEDS: GABAPENTIN 100 MG CAPSULE GT SCH (08:42)
[2019-12-01] MEDS: ASPIRIN 81 MG TAB.CHEW GT SCH (08:42)
[2019-12-01] MEDS: FERROUS SULFATE 300 MG/5 ML UDC GT SCH (08:42)
[2019-12-01] MEDS: DOCUSATE SODIUM 100 MG/10 ML UDC PO SCH (08:42)
[2019-12-01] MEDS: levETIRAcetam 500 MG TABLET GT SCH (08:42)
[2019-12-01] MEDS: PANTOPRAZOLE SODIUM 40 MG/VIAL (PROTONIX) IVP SCH (08:44)
[2019-12-01] MEDS: ATORVASTATIN 10 MG TABLET GT SCH (08:46)
[2019-12-03] MEDS ORDERED: EPOETIN ALFA 10,000 UNITS/ML VIAL SUBCUT SCH (09:00)
== END 2019-12-01 09:10 | DRG 314 ==
LOC: SED 08:42 → STU 11:55 → EEVIPCON 11:55 → STU 13:35
PROVIDERS: ADMIT Internal Medicine; ATTEND Internal Medicine
PROC: 5A1D70Z Performance of Urinary Filtration, Intermittent, Less than 6 Hours Per Day (ICD-10-PCS; 2019-11-22)
PROC: 5A1D70Z Performance of Urinary Filtration, Intermittent, Less than 6 Hours Per Day (ICD-10-PCS; 2019-11-24)
PROC: 0D20XUZ Change Feeding Device in Upper Intestinal Tract, External Approach (ICD-10-PCS; principal; 2019-11-25)
PROC: 5A1D70Z Performance of Urinary Filtration, Intermittent, Less than 6 Hours Per Day (ICD-10-PCS; 2019-11-26)
PROC: 5A1D70Z Performance of Urinary Filtration, Intermittent, Less than 6 Hours Per Day (ICD-10-PCS; 2019-11-27)
PROC: 02HV33Z Insertion of Infusion Device into Superior Vena Cava, Percutaneous Approach (ICD-10-PCS; 2019-11-27)
PROC: B548ZZA Ultrasonography of Superior Vena Cava, Guidance (ICD-10-PCS; 2019-11-27)
PROC: 05PYX3Z Removal of Infusion Device from Upper Vein, External Approach (ICD-10-PCS; 2019-11-27)
PROC: 06HY33Z Insertion of Infusion Device into Lower Vein, Percutaneous Approach (ICD-10-PCS; 2019-11-28)
PROC: B54BZZA Ultrasonography of Right Lower Extremity Veins, Guidance (ICD-10-PCS; 2019-11-28)
PROC: 30233N1 Transfusion of Nonautologous Red Blood Cells into Peripheral Vein, Percutaneous Approach (ICD-10-PCS; 2019-11-28)
PROC: 5A1D70Z Performance of Urinary Filtration, Intermittent, Less than 6 Hours Per Day (ICD-10-PCS; 2019-11-28)
PROC: 05PYX3Z Removal of Infusion Device from Upper Vein, External Approach (ICD-10-PCS; 2019-11-28)
PROC: 06HY33Z Insertion of Infusion Device into Lower Vein, Percutaneous Approach (ICD-10-PCS; 2019-11-28)
PROC: 5A1D70Z Performance of Urinary Filtration, Intermittent, Less than 6 Hours Per Day (ICD-10-PCS; 2019-11-30)
DX: T80.211A Bloodstream infection due to central venous catheter, initial encounter (principal); N18.6 End stage renal disease; G82.50 Quadriplegia, unspecified; G93.41 Metabolic encephalopathy; J15.9 Unspecified bacterial pneumonia; J96.01 Acute respiratory failure with hypoxia; A41.01 Sepsis due to Methicillin susceptible Staphylococcus aureus; R65.20 Severe sepsis without septic shock; I12.0 Hypertensive chronic kidney disease with stage 5 chronic kidney disease or end stage renal disease; I48.20 Chronic atrial fibrillation, unspecified; I69.354 Hemiplegia and hemiparesis following cerebral infarction affecting left non-dominant side; I87.1 Compression of vein; N39.0 Urinary tract infection, site not specified; N17.9 Acute kidney failure, unspecified; K94.23 Gastrostomy malfunction; G93.1 Anoxic brain damage, not elsewhere classified; D63.1 Anemia in chronic kidney disease; E11.22 Type 2 diabetes mellitus with diabetic chronic kidney disease; E11.40 Type 2 diabetes mellitus with diabetic neuropathy, unspecified; E11.51 Type 2 diabetes mellitus with diabetic peripheral angiopathy without gangrene; E11.65 Type 2 diabetes mellitus with hyperglycemia; E78.5 Hyperlipidemia, unspecified; E83.39 Other disorders of phosphorus metabolism; E87.6 Hypokalemia; F32.9 Major depressive disorder, single episode, unspecified; G40.909 Epilepsy, unspecified, not intractable, without status epilepticus; I25.10 Atherosclerotic heart disease of native coronary artery without angina pectoris; K21.9 Gastro-esophageal reflux disease without esophagitis; R13.10 Dysphagia, unspecified; N40.0 Benign prostatic hyperplasia without lower urinary tract symptoms; Y95 Nosocomial condition; Y84.8 Other medical procedures as the cause of abnormal reaction of the patient, or of later complication, without mention of misadventure at the time of the procedure; K56.41 Fecal impaction; Z20.828 Contact with and (suspected) exposure to other viral communicable diseases; Y83.3 Surgical operation with formation of external stoma as the cause of abnormal reaction of the patient, or of later complication, without mention of misadventure at the time of the procedure; K29.70 Gastritis, unspecified, without bleeding; Z99.2 Dependence on renal dialysis; Z87.01 Personal history of pneumonia (recurrent); I69.391 Dysphagia following cerebral infarction; Z79.899 Other long term (current) drug therapy; Z79.4 Long term (current) use of insulin; Z78.9 Other specified health status; Y92.89 Other specified places as the place of occurrence of the external cause; Z74.01 Bed confinement status
CPT/HCPCS: 36415; 36600; 71045; 71250-TC; 74240-TC; 76937; 80048; 80053; 81003; 82550-TC; 82728; 82803-TC; 82962; 83605; 83615-TC; 83735-TC; 83880; 84100-TC; 84484; 85007; 85025; 85027; 85610-TC; 85730-TC; 86140; 86710; 86886; 86900; 86901; 86920; 87040-TC; 87070-TC; 87081; 87086; 87186-TC; 87420; 90935; 90937; 93306; 94640; 94760; 96361; 96365; 96375; 99291; C1751; C9113; G0378; J0360; J0456; J0690; J0696; J1644; J1650; J1815; J2020; J2543; J3370; J3480; J3490; J7030; J7040; J7050; J7060; P9021; Q9963; U0002

== ENCOUNTER 2020-01-04 11:41 | Inpatient (IN) | payer OTHER, MEDICAID, SELFPAY ==
[2020-01-04] VITALS (14 sets, daily range): BP systolic 78–139
[~2020-01-04] VITALS: Ht 167.6 cm; Wt 74.6 kg
[~2020-01-04 11:41] MED LIST changes: -ANT30 PO; -ASPI-1077 GT; -HYDR59LO13 TP; -NITSL SL; +TYLL650 GT
[2020-01-04 12:08] LABS: MEAN CORPUSCULAR HEMOGLOBIN 33 pg (27-31); MEAN CORPUSCULAR HGB CONC 30 % (32-36); MEAN CORPUSCULAR VOLUME 110 fL (79.0-98.0); PLATELET COUNT (AUTO) 418 K/uL (130-430); WHITE BLOOD COUNT (AUTO) 19.1 K/uL (4.8-10.8)
[2020-01-04 12:21] LABS: ANION GAP 13 (5-15); CALCIUM 7.6 mg/dL (8.4-11.0); CHLORIDE 96 mmol/L (98-107); CREATININE 4.56 mg/dL (0.55-1.30); POTASSIUM 4.8 mmol/L (3.5-5.1); SODIUM SERUM 135 mmol/L (136-145); UREA NITROGEN, BLOOD 99 mg/dL (8-21)
[2020-01-04 12:22] LABS: RED BLOOD CELL COUNT(AUTO) 1.67 MIL/uL (4.2-6.2)
[2020-01-04 12:23] LABS: HEMATOCRIT 18.4 % (36-54); HEMOGLOBIN 5.6 g/dL (14.0-18.0)
[2020-01-04 12:29] LABS: ALANINE AMINOTRANSFERASE 13 U/L (12-78); ALBUMIN 2.1 g/dL (3.4-4.8); AMYLASE 36 U/L (0-100); ASPARTATE AMINOTRANSFERASE 151 U/L (10-37); LIPASE 118 U/L (73-393); TOTAL BILIRUBIN 0.6 mg/dL (0.0-1.0)
[2020-01-04 12:31] LABS: GLUCOSE 470 mg/dL (70-99)
[2020-01-04 12:35] LABS: ACETONE, SERUM NEGATIVE (NEGATIVE)
[2020-01-04] MEDS ORDERED: [UNRECOGNIZED DRUG - CODE] TP (13:04)
[2020-01-04] MEDS ORDERED: FLUO15CR TP (13:04)
[2020-01-04] MEDS ORDERED: INSU100I35 SQ (13:04)
[2020-01-04] MEDS ORDERED: HYDR59LO13 TP (13:04)
[2020-01-04] MEDS ORDERED: INSU100V11 SQ (13:04)
[2020-01-04] MEDS ORDERED: FLUC100T41 GT (13:04)
[2020-01-04 13:46] LABS: BAND % (MANUAL) 2 % (0-6); BASOPHILS % (MANUAL) 0 % (0-2); EOSINOPHILS % (MANUAL) 0 % (0-7); LYMPHOCYTES % (MANUAL) 4 % (20-46); MONOCYTES % (MANUAL) 5 % (0-11)
[2020-01-04] MEDS ORDERED: NACL 0.9% 1,000 ML IV PRN (13:52)
[2020-01-04] MEDS ORDERED: INSULIN REGULAR, HUMAN 10 UNITS/0.1 ML INJ IVP ONE (14:15)
[2020-01-04 14:17] LABS: BILIRUBIN,URINE NEGATIVE (NEGATIVE); BLOOD, URINE 3+ (NEGATIVE); COLOR,URINE YELLOW (YELLOW); GLUCOSE,URINE 1+ (NEGATIVE); KETONES,URINE NEGATIVE (NEGATIVE); LEUKOCYTE ESTERASE ,URINE 3+ (NEGATIVE); NITRITE, URINE NEGATIVE (NEGATIVE); PH,URINE 7.5 (5.0-8.0); PROTEIN URINE 3+ (NEGATIVE); UROBILINOGEN,URINE 0.2 (0.2-1.0)
[2020-01-04 14:19] LABS: CLARITY/URINE CLOUDY (CLEAR)
[2020-01-04 14:27] LABS: BACTERIA,URINE MODERATE /HPF (None Seen); WBC,URINE >100 /HPF (0-3)
[2020-01-04 14:28] LABS: MUCUS,URINE 1+ /LPF (None Seen)
[2020-01-04] MEDS ORDERED: VANCOMYCIN HCL 1,000 MG in NS 250 ML IV ONE (14:30)
[2020-01-04] MEDS ORDERED: LEVOFLOXACIN 500 MG/D5W 100 ML IV ONE (14:30)
[2020-01-04] MEDS ORDERED: INSULIN ASPART 100 UNITS/ML, 10 ML VIAL (NovoLOG) SUBCUT PRN (14:45)
[2020-01-04] MEDS ORDERED: VANCOMYCIN HCL 1000 MG/VIAL IV ONE (15:00)
[2020-01-04] MEDS ORDERED: LR 500 ML IV ONE (16:15)
[2020-01-04] MEDS ORDERED: NOREPINEPHRINE BITARTRATE 4 MG in NS 246 ML IV PRN (16:30)
[2020-01-04] MEDS ORDERED: NOREPINEPHRINE BITARTRATE 4 MG in D5W 250 ML IV SCH (16:45)
[2020-01-04] MEDS ORDERED: HEPARIN SODIUM,PORCINE 5000 UNITS/ML VIAL IVP ONE ×2 (22:15)
[2020-01-04] MEDS: INSULIN LISPRO SLIDING SCALE 100 UNITS/ML VIAL (humaLOG) SUBCUT PRN (22:43)
[2020-01-05] VITALS (22 sets, daily range): BP systolic 97–149
[2020-01-05] MEDS: INSULIN LISPRO SLIDING SCALE 100 UNITS/ML VIAL (humaLOG) SUBCUT PRN ×6 (02:36→22:44)
[2020-01-05] MEDS: LEVOFLOXACIN 250 MG/D5W 50 ML IV SCH (09:56)
[2020-01-05] MEDS: MUPIROCIN 2% TOPICAL OINTMENT 22 GM NS SCH ×2 (11:00→22:41)
[2020-01-05 12:28] LABS: BASOPHILS # (AUTO) 0.1 K/uL (0.0-0.2); BASOPHILS % (AUTO) 0.6 % (0.0-2.0); EOSINOPHILS # (AUTO) 0.1 K/uL (0.0-0.4); EOSINOPHILS % (AUTO) 1.1 % (0.0-4.0); HEMATOCRIT 32.6 % (36-54); HEMOGLOBIN 10.7 g/dL (14.0-18.0); LYMPHOCYTES % (AUTO) 8.9 % (20.5-51.5); MEAN CORPUSCULAR HEMOGLOBIN 32 pg (27-31); MEAN CORPUSCULAR HGB CONC 33 % (32-36); MEAN CORPUSCULAR VOLUME 98 fL (79.0-98.0); MONOCYTES # (AUTO) 0.9 K/uL (0.0-1.0); MONOCYTES % (AUTO) 8.3 % (1.7-9.3); NEUTROPHILS # (AUTO) 9.2 K/uL (1.8-7.7); NEUTROPHILS % (AUTO) 81.1 % (40.0-70.0); PLATELET COUNT (AUTO) 250 K/uL (130-430); RED BLOOD CELL COUNT(AUTO) 3.34 MIL/uL (4.2-6.2); RED CELL DISTRIBUTION WIDTH 16.6 % (9.0-15.0); WHITE BLOOD COUNT (AUTO) 11.3 K/uL (4.8-10.8)
[2020-01-05 12:47] LABS: ANION GAP 8 (5-15); CALCIUM 7.7 mg/dL (8.4-11.0); CHLORIDE 100 mmol/L (98-107); CREATININE 3.39 mg/dL (0.55-1.30); GLUCOSE 180 mg/dL (70-99); POTASSIUM 3.4 mmol/L (3.5-5.1); SODIUM SERUM 134 mmol/L (136-145); UREA NITROGEN, BLOOD 53 mg/dL (8-21)
[2020-01-05] MEDS ORDERED: traMADol HCL HCL 50 MG TABLET (ULTRAM) PO PRN (14:45)
[2020-01-05] MEDS ORDERED: PANTOPRAZOLE SODIUM 40 MG TAB PO ONE (14:45)
[2020-01-05] MEDS ORDERED: ACETAMINOPHEN 500 MG TABLET PO PRN (14:45)
[2020-01-05] MEDS ORDERED: PANTOPRAZOLE SODIUM 40 MG TAB ONE (16:01)
[2020-01-06] MEDS: INSULIN LISPRO SLIDING SCALE 100 UNITS/ML VIAL (humaLOG) SUBCUT PRN ×4 (02:58→15:21)
[2020-01-06] MEDS: VANCOMYCIN HCL 1,000 MG in NS 250 ML IV SCH (05:08)
[2020-01-06 06:53] LABS: BASOPHILS # (AUTO) 0.1 K/uL (0.0-0.2); BASOPHILS % (AUTO) 0.5 % (0.0-2.0); EOSINOPHILS # (AUTO) 0.2 K/uL (0.0-0.4); HEMOGLOBIN 11.7 g/dL (14.0-18.0); LYMPHOCYTES # (AUTO) 1.5 K/uL (1.0-5.5); MEAN CORPUSCULAR HEMOGLOBIN 33 pg (27-31); MEAN CORPUSCULAR HGB CONC 33 % (32-36); MEAN CORPUSCULAR VOLUME 100 fL (79.0-98.0); MONOCYTES # (AUTO) 1.2 K/uL (0.0-1.0); MONOCYTES % (AUTO) 12.3 % (1.7-9.3); NEUTROPHILS # (AUTO) 6.9 K/uL (1.8-7.7); NEUTROPHILS % (AUTO) 70.2 % (40.0-70.0); PLATELET COUNT (AUTO) 240 K/uL (130-430); RED BLOOD CELL COUNT(AUTO) 3.61 MIL/uL (4.2-6.2); RED CELL DISTRIBUTION WIDTH 18.1 % (9.0-15.0); WHITE BLOOD COUNT (AUTO) 9.8 K/uL (4.8-10.8)
[2020-01-06 07:17] LABS: ANION GAP 12 (5-15); CALCIUM 7.9 mg/dL (8.4-11.0); CHLORIDE 101 mmol/L (98-107); GLUCOSE 155 mg/dL (70-99); PHOSPHORUS 4.1 mg/dL (2.7-4.5); POTASSIUM 3.7 mmol/L (3.5-5.1); SODIUM SERUM 138 mmol/L (136-145); UREA NITROGEN, BLOOD 67 mg/dL (8-21)
[2020-01-06 07:55] VITALS: BP_SYST 123
[2020-01-06] MEDS: LEVOFLOXACIN 250 MG/D5W 50 ML IV SCH (09:35)
[2020-01-06] MEDS: PANTOPRAZOLE SODIUM 40 MG TAB PO SCH (09:36)
[2020-01-06] MEDS: MUPIROCIN 2% TOPICAL OINTMENT 22 GM NS SCH ×2 (09:38→21:05)
[2020-01-06 12:00] VITALS: BP_SYST 149
[2020-01-06] MEDS: traMADol HCL HCL 50 MG TABLET (ULTRAM) PO PRN ×2 (13:58→23:45)
[2020-01-06 16:30] VITALS: BP_SYST 151
[2020-01-06 20:00] VITALS: BP_SYST 135
[2020-01-06 22:49] VITALS: BP_SYST 135
[2020-01-07 00:22] VITALS: BP_SYST 149
[2020-01-07] MEDS: INSULIN LISPRO SLIDING SCALE 100 UNITS/ML VIAL (humaLOG) SUBCUT PRN ×3 (02:44→20:08)
[2020-01-07 06:40] LABS: BASOPHILS # (AUTO) 0.1 K/uL (0.0-0.2); BASOPHILS % (AUTO) 0.7 % (0.0-2.0); EOSINOPHILS # (AUTO) 0.3 K/uL (0.0-0.4); EOSINOPHILS % (AUTO) 2.6 % (0.0-4.0); HEMATOCRIT 36.2 % (36-54); HEMOGLOBIN 11.5 g/dL (14.0-18.0); LYMPHOCYTES # (AUTO) 0.7 K/uL (1.0-5.5); MEAN CORPUSCULAR HEMOGLOBIN 32 pg (27-31); MEAN CORPUSCULAR HGB CONC 32 % (32-36); MEAN CORPUSCULAR VOLUME 99 fL (79.0-98.0); MONOCYTES # (AUTO) 0.4 K/uL (0.0-1.0); MONOCYTES % (AUTO) 3.7 % (1.7-9.3); NEUTROPHILS # (AUTO) 10.6 K/uL (1.8-7.7); PLATELET COUNT (AUTO) 235 K/uL (130-430); RED BLOOD CELL COUNT(AUTO) 3.65 MIL/uL (4.2-6.2); RED CELL DISTRIBUTION WIDTH 19.5 % (9.0-15.0); WHITE BLOOD COUNT (AUTO) 12.2 K/uL (4.8-10.8)
[2020-01-07 06:47] LABS: ANION GAP 15 (5-15); CALCIUM 7.6 mg/dL (8.4-11.0); CHLORIDE 98 mmol/L (98-107); CREATININE 4.76 mg/dL (0.55-1.30); GLUCOSE 126 mg/dL (70-99); POTASSIUM 3.7 mmol/L (3.5-5.1); SODIUM SERUM 135 mmol/L (136-145); UREA NITROGEN, BLOOD 76 mg/dL (8-21)
[2020-01-07 08:00] VITALS: BP_SYST 137
[2020-01-07] MEDS: LEVOFLOXACIN 250 MG/D5W 50 ML IV SCH ×2 (09:00→14:33)
[2020-01-07] MEDS: MUPIROCIN 2% TOPICAL OINTMENT 22 GM NS SCH ×2 (09:32→20:06)
[2020-01-07] MEDS: PANTOPRAZOLE SODIUM 40 MG TAB PO SCH (09:32)
[2020-01-07] MEDS: EPOETIN ALFA 10,000 UNITS/ML VIAL SUBCUT SCH (09:33)
[2020-01-07] MEDS ORDERED: HEPARIN SODIUM, PORCINE 10,000 UNITS/ 10 ML VIAL MC ONE (12:30)
[2020-01-07 12:44] VITALS: BP_SYST 100
[2020-01-07 16:54] VITALS: BP_SYST 130
[2020-01-07] MEDS ORDERED: BISACODYL 5 MG TABLET.DR (DULCOLAX) PO ONE (17:00)
[2020-01-07] MEDS ORDERED: GOLYTELY / COLYTE SOLUTION 4 LITERS GT ONE (18:00)
[2020-01-07 20:00] VITALS: BP_SYST 141
[2020-01-07 20:11] VITALS: BP_SYST 156
[2020-01-08] MEDS: traMADol HCL HCL 50 MG TABLET (ULTRAM) PO PRN (00:08)
[2020-01-08] MEDS: INSULIN LISPRO SLIDING SCALE 100 UNITS/ML VIAL (humaLOG) SUBCUT PRN ×3 (00:10→18:43)
[2020-01-08 01:26] VITALS: BP_SYST 139
[2020-01-08] MEDS: VANCOMYCIN HCL 1,000 MG in NS 250 ML IV SCH (06:22)
[2020-01-08] MEDS ORDERED: fentaNYL CITRATE/PF 100 MCG/2 ML AMP ONE (07:41)
[2020-01-08] MEDS ORDERED: MIDAZOLAM HCL 5 MG/5 ML VIAL ONE ×2 (07:41→08:36)
[2020-01-08 07:48] LABS: BASOPHILS % (AUTO) 0.4 % (0.0-2.0); EOSINOPHILS # (AUTO) 0.2 K/uL (0.0-0.4); EOSINOPHILS % (AUTO) 2.9 % (0.0-4.0); HEMATOCRIT 38.5 % (36-54); HEMOGLOBIN 12.4 g/dL (14.0-18.0); LYMPHOCYTES % (AUTO) 13.1 % (20.5-51.5); MEAN CORPUSCULAR HEMOGLOBIN 32 pg (27-31); MEAN CORPUSCULAR HGB CONC 32 % (32-36); MEAN CORPUSCULAR VOLUME 99 fL (79.0-98.0); MONOCYTES # (AUTO) 0.5 K/uL (0.0-1.0); MONOCYTES % (AUTO) 5.8 % (1.7-9.3); NEUTROPHILS # (AUTO) 6.2 K/uL (1.8-7.7); NEUTROPHILS % (AUTO) 77.8 % (40.0-70.0); PLATELET COUNT (AUTO) 215 K/uL (130-430); RED BLOOD CELL COUNT(AUTO) 3.87 MIL/uL (4.2-6.2); RED CELL DISTRIBUTION WIDTH 21.6 % (9.0-15.0); RETICULOCYTE COUNT 13.6 % (0.5-1.5)
[2020-01-08] MEDS ORDERED: SIMETHICONE 40 MG/0.6 ML ML ONE (07:49)
[2020-01-08 07:52] LABS: INR 1.3 (0.80-1.20); PROTHROMBIN TIME 12.9 SECS (9.5-12.5)
[2020-01-08 07:59] LABS: ANION GAP 12 (5-15); CALCIUM 7.6 mg/dL (8.4-11.0); CHLORIDE 98 mmol/L (98-107); CREATININE 3.58 mg/dL (0.55-1.30); GLUCOSE 125 mg/dL (70-99); POTASSIUM 3.3 mmol/L (3.5-5.1); SODIUM SERUM 138 mmol/L (136-145); UREA NITROGEN, BLOOD 37 mg/dL (8-21); VANCOMYCIN,RANDOM 13.8 ug/mL
[2020-01-08 08:00] VITALS: BP_SYST 149
[2020-01-08 09:11] LABS: TOTAL IRON BIND. CAPACITY 157 ug/dL (250-450)
[2020-01-08] MEDS: LEVOFLOXACIN 250 MG/D5W 50 ML IV SCH (09:48)
[2020-01-08] MEDS: MUPIROCIN 2% TOPICAL OINTMENT 22 GM NS SCH ×2 (09:48→20:26)
[2020-01-08] MEDS: PANTOPRAZOLE SODIUM 40 MG TAB PO SCH (09:48)
[2020-01-08] MEDS ORDERED: POTASSIUM CHLORIDE 20 MEQ/PKT PACKET PO ONE (10:00)
[2020-01-08 12:16] VITALS: BP_SYST 146
[2020-01-08 16:36] VITALS: BP_SYST 140
[2020-01-08 20:00] VITALS: BP_SYST 145
[2020-01-09 06:57] LABS: BASOPHILS # (AUTO) 0.1 K/uL (0.0-0.2); BASOPHILS % (AUTO) 0.9 % (0.0-2.0); EOSINOPHILS # (AUTO) 0.2 K/uL (0.0-0.4); EOSINOPHILS % (AUTO) 2.7 % (0.0-4.0); HEMATOCRIT 37.3 % (36-54); LYMPHOCYTES # (AUTO) 0.9 K/uL (1.0-5.5); LYMPHOCYTES % (AUTO) 14.4 % (20.5-51.5); MEAN CORPUSCULAR HEMOGLOBIN 31 pg (27-31); MEAN CORPUSCULAR HGB CONC 32 % (32-36); MEAN CORPUSCULAR VOLUME 98 fL (79.0-98.0); MONOCYTES # (AUTO) 0.6 K/uL (0.0-1.0); MONOCYTES % (AUTO) 8.9 % (1.7-9.3); NEUTROPHILS # (AUTO) 4.6 K/uL (1.8-7.7); NEUTROPHILS % (AUTO) 73.1 % (40.0-70.0); PLATELET COUNT (AUTO) 219 K/uL (130-430); RED BLOOD CELL COUNT(AUTO) 3.83 MIL/uL (4.2-6.2); RED CELL DISTRIBUTION WIDTH 21.9 % (9.0-15.0); WHITE BLOOD COUNT (AUTO) 6.3 K/uL (4.8-10.8)
[2020-01-09 07:05] LABS: ANION GAP 16 (5-15); CALCIUM 7.6 mg/dL (8.4-11.0); CHLORIDE 98 mmol/L (98-107); CREATININE 4.16 mg/dL (0.55-1.30); GLUCOSE 143 mg/dL (70-99); POTASSIUM 4.3 mmol/L (3.5-5.1); SODIUM SERUM 138 mmol/L (136-145); UREA NITROGEN, BLOOD 44 mg/dL (8-21)
[2020-01-09 07:11] LABS: FOLATE (FOLIC ACID) >20.0 ng/mL (>3.0)
[2020-01-09 08:13] LABS: FERRITIN 229 ng/mL (30-400)
[2020-01-09] MEDS: EPOETIN ALFA 10,000 UNITS/ML VIAL SUBCUT SCH (08:20)
[2020-01-09] MEDS: LEVOFLOXACIN 250 MG/D5W 50 ML IV SCH ×2 (08:20→13:26)
[2020-01-09] MEDS: PANTOPRAZOLE SODIUM 40 MG TAB PO SCH (08:21)
[2020-01-09] MEDS: MUPIROCIN 2% TOPICAL OINTMENT 22 GM NS SCH ×2 (08:21→21:11)
[2020-01-09] MEDS ORDERED: HEPARIN SODIUM,PORCINE 5000 UNITS/ML VIAL MC ONE ×2 (10:00)
[2020-01-09 13:02] VITALS: BP_SYST 136
[2020-01-09 17:17] VITALS: BP_SYST 169
[2020-01-09] MEDS ORDERED: GOLYTELY / COLYTE SOLUTION 4 LITERS PO ONE (18:00)
[2020-01-09 20:45] VITALS: BP_SYST 168
[2020-01-09] MEDS: traMADol HCL HCL 50 MG TABLET (ULTRAM) PO PRN (21:22)
[2020-01-10 00:05] VITALS: BP_SYST 154
[2020-01-10] MEDS: INSULIN LISPRO SLIDING SCALE 100 UNITS/ML VIAL (humaLOG) SUBCUT PRN ×4 (03:37→23:12)
[2020-01-10] MEDS ORDERED: VANCOMYCIN HCL 1,250 MG in NS 250 ML IV SCH (06:00)
[2020-01-10 08:16] VITALS: BP_SYST 174
[2020-01-10 08:18] LABS: ANION GAP 20 (5-15); CALCIUM 7.9 mg/dL (8.4-11.0); CHLORIDE 98 mmol/L (98-107); CREATININE 3.49 mg/dL (0.55-1.30); GLUCOSE 142 mg/dL (70-99); POTASSIUM 4.4 mmol/L (3.5-5.1); SODIUM SERUM 136 mmol/L (136-145); UREA NITROGEN, BLOOD 27 mg/dL (8-21)
[2020-01-10] MEDS: PANTOPRAZOLE SODIUM 40 MG TAB PO SCH (08:28)
[2020-01-10] MEDS: LEVOFLOXACIN 250 MG/D5W 50 ML IV SCH (08:29)
[2020-01-10] MEDS ORDERED: LORazepam 1 MG TABLET PO PRN (09:30)
[2020-01-10] MEDS: D5/0.45 NS 1,000 ML IV SCH ×3 (10:30→23:13)
[2020-01-10 12:30] VITALS: BP_SYST 158
[2020-01-10] MEDS: MORPHINE 2 MG/ML INJ. SYRINGE IVP PRN ×2 (13:35→23:08)
[2020-01-10 15:50] LABS: HEMATOCRIT 40.4 % (36-54); HEMOGLOBIN 12.6 g/dL (14.0-18.0); LYMPHOCYTES # (AUTO) 0.9 K/uL (1.0-5.5); MEAN CORPUSCULAR HGB CONC 31 % (32-36); WHITE BLOOD COUNT (AUTO) 8.9 K/uL (4.8-10.8)
[2020-01-10 15:56] LABS: BASOPHILS # (AUTO) 0.1 K/uL (0.0-0.2); BASOPHILS % (AUTO) 0.6 % (0.0-2.0); EOSINOPHILS % (AUTO) 0.3 % (0.0-4.0); INR 1.6 (0.80-1.20); LYMPHOCYTES % (AUTO) 10.1 % (20.5-51.5); MEAN CORPUSCULAR HEMOGLOBIN 31 pg (27-31); MONOCYTES # (AUTO) 1.9 K/uL (0.0-1.0); MONOCYTES % (AUTO) 20.8 % (1.7-9.3); NEUTROPHILS # (AUTO) 6.1 K/uL (1.8-7.7); NEUTROPHILS % (AUTO) 68.2 % (40.0-70.0); PLATELET COUNT (AUTO) 266 K/uL (130-430); PROTHROMBIN TIME 15.8 SECS (9.5-12.5); RED BLOOD CELL COUNT(AUTO) 4.02 MIL/uL (4.2-6.2); RED CELL DISTRIBUTION WIDTH 20.8 % (9.0-15.0)
[2020-01-10 16:03] LABS: MEAN CORPUSCULAR VOLUME 100 fL (79.0-98.0)
[2020-01-10 16:39] VITALS: BP_SYST 157
[2020-01-10 20:00] VITALS: BP_SYST 155
[2020-01-10] MEDS: ZOLPIDEM TARTRATE 5 MG TABLET PO SCH (21:00)
[2020-01-11 05:10] VITALS: BP_SYST 148
[2020-01-11] MEDS: INSULIN LISPRO SLIDING SCALE 100 UNITS/ML VIAL (humaLOG) SUBCUT PRN ×3 (06:51→23:28)
[2020-01-11 06:56] LABS: BASOPHILS % (AUTO) 0.4 % (0.0-2.0); HEMATOCRIT 38.9 % (36-54); HEMOGLOBIN 12.4 g/dL (14.0-18.0); LYMPHOCYTES # (AUTO) 0.8 K/uL (1.0-5.5); LYMPHOCYTES % (AUTO) 17.9 % (20.5-51.5); MEAN CORPUSCULAR HEMOGLOBIN 31 pg (27-31); MEAN CORPUSCULAR HGB CONC 32 % (32-36); MEAN CORPUSCULAR VOLUME 98 fL (79.0-98.0); MONOCYTES # (AUTO) 0.7 K/uL (0.0-1.0); MONOCYTES % (AUTO) 14.2 % (1.7-9.3); NEUTROPHILS # (AUTO) 3.1 K/uL (1.8-7.7); NEUTROPHILS % (AUTO) 66.5 % (40.0-70.0); PLATELET COUNT (AUTO) 256 K/uL (130-430); RED BLOOD CELL COUNT(AUTO) 3.99 MIL/uL (4.2-6.2); RED CELL DISTRIBUTION WIDTH 19.4 % (9.0-15.0); WHITE BLOOD COUNT (AUTO) 4.6 K/uL (4.8-10.8)
[2020-01-11 07:33] LABS: ANION GAP 20 (5-15); CALCIUM 8.1 mg/dL (8.4-11.0); CHLORIDE 99 mmol/L (98-107); CREATININE 4.45 mg/dL (0.55-1.30); GLUCOSE 190 mg/dL (70-99); SODIUM SERUM 139 mmol/L (136-145); UREA NITROGEN, BLOOD 34 mg/dL (8-21)
[2020-01-11 08:00] VITALS: BP_SYST 176
[2020-01-11] MEDS ORDERED: HEPARIN SODIUM,PORCINE 5000 UNITS/ML VIAL IV ONE (12:15)
[2020-01-11 12:53] VITALS: BP_SYST 113
[2020-01-11] MEDS ORDERED: MIDAZOLAM HCL 5 MG/5 ML VIAL ONE (15:02)
[2020-01-11] MEDS ORDERED: fentaNYL CITRATE/PF 100 MCG/2 ML AMP ONE (15:02)
[2020-01-11] MEDS ORDERED: SIMETHICONE 40 MG/0.6 ML ML ONE (15:03)
[2020-01-11] MEDS ORDERED: COMMUNICATION ORDER XX ONE (16:00)
[2020-01-11 18:24] VITALS: BP_SYST 165
[2020-01-11] MEDS: D5/0.45 NS 1,000 ML IV SCH (18:36)
[2020-01-11 20:00] VITALS: BP_SYST 156
[2020-01-11] MEDS: MORPHINE 2 MG/ML INJ. SYRINGE IVP PRN (22:10)
[2020-01-11] MEDS: ZOLPIDEM TARTRATE 5 MG TABLET PO SCH (22:10)
[2020-01-12 00:10] VITALS: BP_SYST 140
[2020-01-12] MEDS: INSULIN LISPRO SLIDING SCALE 100 UNITS/ML VIAL (humaLOG) SUBCUT PRN ×3 (05:46→17:24)
[2020-01-12 08:00] VITALS: BP_SYST 147
[2020-01-12 08:24] LABS: ANION GAP 15 (5-15); CALCIUM 7.8 mg/dL (8.4-11.0); CHLORIDE 99 mmol/L (98-107); CREATININE 3.61 mg/dL (0.55-1.30); GLUCOSE 168 mg/dL (70-99); SODIUM SERUM 138 mmol/L (136-145); UREA NITROGEN, BLOOD 22 mg/dL (8-21)
[2020-01-12] MEDS: PANTOPRAZOLE SODIUM 40 MG TAB PO SCH (08:53)
[2020-01-12] MEDS ORDERED: POTASSIUM CHLORIDE 20 MEQ TAB.PRT.SR PO ONE (10:45)
[2020-01-12] MEDS: D5/0.45 NS 1,000 ML IV SCH ×2 (12:30→15:42)
[2020-01-12 13:16] VITALS: BP_SYST 162
[2020-01-12 16:06] VITALS: BP_SYST 146
[2020-01-12 20:00] VITALS: BP_SYST 156
[2020-01-12] MEDS: ZOLPIDEM TARTRATE 5 MG TABLET PO SCH (20:21)
[2020-01-13] MEDS: INSULIN LISPRO SLIDING SCALE 100 UNITS/ML VIAL (humaLOG) SUBCUT PRN ×2 (00:05→11:43)
[2020-01-13] MEDS: MORPHINE 2 MG/ML INJ. SYRINGE IVP PRN ×3 (00:07→11:45)
[2020-01-13 00:48] VITALS: BP_SYST 132
[2020-01-13] MEDS: D5/0.45 NS 1,000 ML IV SCH (05:32)
[2020-01-13 06:29] LABS: BASOPHILS % (AUTO) 0.6 % (0.0-2.0); EOSINOPHILS # (AUTO) 0.2 K/uL (0.0-0.4); EOSINOPHILS % (AUTO) 3.4 % (0.0-4.0); HEMATOCRIT 40.4 % (36-54); HEMOGLOBIN 12.9 g/dL (14.0-18.0); LYMPHOCYTES % (AUTO) 17.4 % (20.5-51.5); MEAN CORPUSCULAR HEMOGLOBIN 31 pg (27-31); MEAN CORPUSCULAR HGB CONC 32 % (32-36); MEAN CORPUSCULAR VOLUME 97 fL (79.0-98.0); MONOCYTES # (AUTO) 0.8 K/uL (0.0-1.0); MONOCYTES % (AUTO) 13.7 % (1.7-9.3); NEUTROPHILS # (AUTO) 3.6 K/uL (1.8-7.7); NEUTROPHILS % (AUTO) 64.9 % (40.0-70.0); PLATELET COUNT (AUTO) 234 K/uL (130-430); RED BLOOD CELL COUNT(AUTO) 4.17 MIL/uL (4.2-6.2); RED CELL DISTRIBUTION WIDTH 19.6 % (9.0-15.0); WHITE BLOOD COUNT (AUTO) 5.6 K/uL (4.8-10.8)
[2020-01-13 07:19] LABS: ANION GAP 14 (5-15); CALCIUM 8.1 mg/dL (8.4-11.0); CHLORIDE 101 mmol/L (98-107); CREATININE 4.08 mg/dL (0.55-1.30); GLUCOSE 111 mg/dL (70-99); POTASSIUM 3.6 mmol/L (3.5-5.1); SODIUM SERUM 136 mmol/L (136-145); UREA NITROGEN, BLOOD 27 mg/dL (8-21)
[2020-01-13 08:00] VITALS: BP_SYST 163
[2020-01-13] MEDS: PANTOPRAZOLE SODIUM 40 MG TAB PO SCH (09:25)
[2020-01-13 12:20] VITALS: BP_SYST 143
[2020-01-13 16:09] VITALS: BP_SYST 138
[2020-01-13] MEDS ORDERED: PRO40 PO (16:57)
[2020-01-13 16:58] VITALS: BP_SYST 138
== END 2020-01-13 18:10 | DRG 871 ==
LOC: SED 11:41 → STU 14:01 → SIC 19:02 → STU 01-05 21:33 → SMU 01-12 16:05
PROVIDERS: ADMIT Internal Medicine; ATTEND Internal Medicine
PROC: 30233N1 Transfusion of Nonautologous Red Blood Cells into Peripheral Vein, Percutaneous Approach (ICD-10-PCS; principal; 2020-01-04)
PROC: 5A1D70Z Performance of Urinary Filtration, Intermittent, Less than 6 Hours Per Day (ICD-10-PCS; 2020-01-04)
PROC: 02HV33Z Insertion of Infusion Device into Superior Vena Cava, Percutaneous Approach (ICD-10-PCS; 2020-01-05)
PROC: 5A1D70Z Performance of Urinary Filtration, Intermittent, Less than 6 Hours Per Day (ICD-10-PCS; 2020-01-06)
PROC: 5A1D70Z Performance of Urinary Filtration, Intermittent, Less than 6 Hours Per Day (ICD-10-PCS; 2020-01-09)
PROC: 0DB78ZX Excision of Stomach, Pylorus, Via Natural or Artificial Opening Endoscopic, Diagnostic (ICD-10-PCS; 2020-01-11)
PROC: 0DJD8ZZ Inspection of Lower Intestinal Tract, Via Natural or Artificial Opening Endoscopic (ICD-10-PCS; 2020-01-11)
PROC: 5A1D70Z Performance of Urinary Filtration, Intermittent, Less than 6 Hours Per Day (ICD-10-PCS; 2020-01-11 15:00)
DX: A41.01 Sepsis due to Methicillin susceptible Staphylococcus aureus (principal); N18.6 End stage renal disease; E43 Unspecified severe protein-calorie malnutrition; G82.50 Quadriplegia, unspecified; J18.9 Pneumonia, unspecified organism; N39.0 Urinary tract infection, site not specified; I42.9 Cardiomyopathy, unspecified; I12.0 Hypertensive chronic kidney disease with stage 5 chronic kidney disease or end stage renal disease; J44.0 Chronic obstructive pulmonary disease with (acute) lower respiratory infection; I69.351 Hemiplegia and hemiparesis following cerebral infarction affecting right dominant side; G93.49 Other encephalopathy; E11.42 Type 2 diabetes mellitus with diabetic polyneuropathy; E11.22 Type 2 diabetes mellitus with diabetic chronic kidney disease; F03.90 Unspecified dementia, unspecified severity, without behavioral disturbance, psychotic disturbance, mood disturbance, and anxiety; G40.909 Epilepsy, unspecified, not intractable, without status epilepticus; E11.65 Type 2 diabetes mellitus with hyperglycemia; E11.51 Type 2 diabetes mellitus with diabetic peripheral angiopathy without gangrene; I48.0 Paroxysmal atrial fibrillation; K64.8 Other hemorrhoids; I25.10 Atherosclerotic heart disease of native coronary artery without angina pectoris; K21.9 Gastro-esophageal reflux disease without esophagitis; E78.5 Hyperlipidemia, unspecified; K29.70 Gastritis, unspecified, without bleeding; D50.9 Iron deficiency anemia, unspecified; K25.9 Gastric ulcer, unspecified as acute or chronic, without hemorrhage or perforation; D63.1 Anemia in chronic kidney disease; N40.0 Benign prostatic hyperplasia without lower urinary tract symptoms; R13.10 Dysphagia, unspecified; Z86.19 Personal history of other infectious and parasitic diseases; Z99.2 Dependence on renal dialysis; Z82.49 Family history of ischemic heart disease and other diseases of the circulatory system; Z83.3 Family history of diabetes mellitus; Z68.26 Body mass index [BMI] 26.0-26.9, adult; Z91.013 Allergy to seafood; Z93.1 Gastrostomy status; Z79.899 Other long term (current) drug therapy; Z87.440 Personal history of urinary (tract) infections; Z03.818 Encounter for observation for suspected exposure to other biological agents ruled out
CPT/HCPCS: 36415; 43239; 45378; 71045; 80048; 80053; 80202-TC; 81000-TC; 82009-TC; 82150-TC; 82272; 82607; 82728; 82746; 82962; 83036; 83540-TC; 83550-TC; 83605; 83690-TC; 83735-TC; 84100-TC; 85007; 85025; 85027; 85044-TC; 85610-TC; 85730-TC; 86886; 86900; 86901; 86920; 87040-TC; 87081; 87086; 88305; 88312; 88313; 90935; 90937; 92610-GN; 93005; 96361; 96365; 96367; 96368; 96375; G0378; J0885; J1644; J1815; J1956; J2250; J2270; J3010; J3370; J7030; J7050; J7060; J7120; P9021

== ENCOUNTER 2020-03-10 00:30 | Emergency (ER) | payer OTHER, MEDICAID, SELFPAY ==
[~2020-03-10] VITALS: Ht 177.8 cm; Wt 90.7 kg
[~2020-03-10 00:30] MED LIST changes: +FLUC100T41 GT; +FLUO15CR TP; +HYDR59LO13 TP; +INSU100I35 SQ; +PRO40 PO; +[UNRECOGNIZED DRUG - CODE] TP
[2020-03-10] MEDS ORDERED: EPINEPHrine JECT 0.1 MG/ML SYR IVP ONE (00:31)
[2020-03-10] MEDS ORDERED: SODIUM BICARBONATE 8.4% JECT 50 MEQ/50 ML SYRINGE IVP ONE (00:31)
[2020-03-10] MEDS ORDERED: ATROPINE SULFATE 1 MG/10 ML SYRINGE IVP ONE (00:31)
[2020-03-10 00:40] VITALS: BP_SYST 96
[2020-03-10] MEDS: NACL 0.9% 1,000 ML IV ONE (01:37)
[2020-03-10 01:53] LABS: MEAN CORPUSCULAR HEMOGLOBIN 31 pg (27-31); MEAN CORPUSCULAR HGB CONC 31 % (32-36); MEAN CORPUSCULAR VOLUME 100 fL (79.0-98.0); PLATELET COUNT (AUTO) 306 K/uL (130-430); RED CELL DISTRIBUTION WIDTH 18.9 % (9.0-15.0); WHITE BLOOD COUNT (AUTO) 21.3 K/uL (4.8-10.8)
[2020-03-10 02:08] LABS: PROTHROMBIN TIME 10.4 SECS (9.5-12.5)
[2020-03-10 02:20] LABS: RED BLOOD CELL COUNT(AUTO) 1.91 MIL/uL (4.2-6.2)
[2020-03-10 02:21] LABS: HEMATOCRIT 19.1 % (36-54)
[2020-03-10 02:24] LABS: ALANINE AMINOTRANSFERASE 26 U/L (12-78); ALBUMIN 2.4 g/dL (3.4-4.8); ANION GAP 15 (5-15); ASPARTATE AMINOTRANSFERASE 24 U/L (10-37); ATYPICAL LYMPHOCYTES % 0 % (0-0); BAND % (MANUAL) 3 % (0-6); BASOPHILS % (MANUAL) 0 % (0-2); CALCIUM 8.6 mg/dL (8.4-11.0); CHLORIDE 100 mmol/L (98-107); CREATININE 4.27 mg/dL (0.55-1.30); EOSINOPHILS % (MANUAL) 0 % (0-7); LYMPHOCYTES % (MANUAL) 8 % (20-46); METAMYELOCYTES % 0 % (0-0); MONOCYTES % (MANUAL) 4 % (0-11); MYELOCYTES % 2 % (0-0); POTASSIUM 4.4 mmol/L (3.5-5.1); SODIUM SERUM 136 mmol/L (136-145); TOTAL BILIRUBIN 0.3 mg/dL (0.0-1.0)
[2020-03-10 02:39] LABS: GLUCOSE 561 mg/dL (70-99); UREA NITROGEN, BLOOD 190 mg/dL (8-21)
[2020-03-10] MEDS ORDERED: NOREPINEPHRINE BITARTRATE 4 MG in NS 246 ML IV ONE (02:45)
[2020-03-10] MEDS ORDERED: INSULIN REGULAR, HUMAN 10 UNITS/0.1 ML INJ IVP ONE (02:45)
[2020-03-10] MEDS ORDERED: FOLI0.8T2 GT (02:48)
[2020-03-10] MEDS ORDERED: TRAM50TA2 GT (02:48)
[2020-03-10] MEDS ORDERED: LISI40TA4 PO (02:48)
[2020-03-10] MEDS ORDERED: ENAL5TAB77 GT (02:48)
[2020-03-10] MEDS ORDERED: IPRA3AMP9 INH (02:48)
[2020-03-10] MEDS ORDERED: LEVE100S GT (02:48)
[2020-03-10] MEDS ORDERED: NOREPINEPHRINE 4 MG/4 ML VIAL IV ONE (03:05)
== END 2020-03-10 03:08 | disposition expired ==
LOC: SED 00:30
DX: I46.9 Cardiac arrest, cause unspecified (principal); I25.9 Chronic ischemic heart disease, unspecified; K92.2 Gastrointestinal hemorrhage, unspecified; E11.22 Type 2 diabetes mellitus with diabetic chronic kidney disease; E11.65 Type 2 diabetes mellitus with hyperglycemia; D64.9 Anemia, unspecified; I12.0 Hypertensive chronic kidney disease with stage 5 chronic kidney disease or end stage renal disease; N18.6 End stage renal disease; J44.9 Chronic obstructive pulmonary disease, unspecified; Z99.2 Dependence on renal dialysis; Z79.899 Other long term (current) drug therapy
CPT/HCPCS: 36415; 70450; 71045; 80053; 82962; 83605; 83880; 84484; 85007; 85027; 85610; 85730; 86886; 86900; 86901; 87040; 92950; 93005; 96360; 96361; 99285; J0171; J0461; J1815; J7030